=== PATIENT | male | born 1975 | race Caucasian/White ===

== ENCOUNTER 2021-02-15 09:19 | Emergency (ER) | payer MEDICAID ==
--- NOTE | 2021-02-15 10:44 | EDM.PDOC ---
ED HPI GENERAL MEDICAL PROBLEM - General Chief Complaint: Gastrointestinal Problem Stated Complaint: CONSTIPATION Time Seen by Provider: 02/15/21 10:39 Source of Information: Reports: Patient, Family, RN Notes Reviewed History Limitations: Reports: No Limitations - History of Present Illness INITIAL COMMENTS - FREE TEXT/NARRATIVE: 45-year-old gentleman presents emergency department today with complaint of constipation he states his been constipated for a little over a week he has not had a bowel movement he has tried MiraLAX at home without success he has tried going to the bathroom and felt he pushed so hard he caused some nausea and vomiting. Does have a history of appendicitis for abdominal surgeries Abdomen Pain Score (Numeric/FACES): 3 - Related Data Allergies Allergy/AdvReac Type Severity Reaction Status Date / Time No Known Allergies Allergy Verified 02/15/21 09:49 Home Meds: Home Meds Multivitamin [Multi Vitamin Daily] 1 each PO TID 07/30/13 [History] Past Medical History HEENT History: Reports: Impaired Vision Gastrointestinal History: Reports: Other (See Below) Other Gastrointestinal History: groin hernia - Infectious Disease History Infectious Disease History: Reports: Chicken Pox - Past Surgical History GI Surgical History: Reports: Appendectomy Social & Family History - Tobacco Use Tobacco Use Status *Q: Never Tobacco User - Caffeine Use Caffeine Use: Reports: Coffee, Soda - Recreational Drug Use Recreational Drug Use: No ED ROS GENERAL - Review of Systems Review Of Systems: See Below Constitutional: Reports: No Symptoms Respiratory: Reports: No Symptoms Cardiovascular: Reports: No Symptoms GI/Abdominal: Reports: Abdominal Pain, Constipation, Flatus, Nausea, Vomiting ED EXAM, GI/ABD - Physical Exam Exam: See Below Exam Limited By: No Limitations General Appearance: Alert, WD/WN, No Apparent Distress Respiratory/Chest: No Respiratory Distress GI/Abdominal Exam: Normal Bowel Sounds, Soft, Non-Tender Course - Vital Signs Last Recorded V/S: Last Vital Signs Temp 96.9 F 02/15/21 09:54 Pulse 117 H 02/15/21 09:54 Resp 20 02/15/21 09:54 BP 171/98 H 02/15/21 09:54 Pulse Ox 100 02/15/21 09:54 Departure - Departure Time of Disposition: 13:29 Disposition: Home, Self-Care 01 Condition: Fair Clinical Impression: Constipation Qualifiers: Constipation type: other constipation type Qualified Code(s): K59.09 - Other constipation - Discharge Information Instructions: Constipation, Adult Referrals: PCP,None [Primary Care Provider] - Forms: ED Department Discharge Additional Instructions: Try the colonoscopy prep at home, please followup with your primary care provider in 3-5 days if not better, please call return to the emergency department with worsening of symptoms. Sepsis Event Note (ED) - Evaluation Sepsis Screening Result: No Definite Risk - Focused Exam Vital Signs: Vital Signs Temp Pulse Resp BP Pulse Ox 02/15/21 09:54 96.9 F 117 H 20 171/98 H 100 02/15/21 09:45 96.9 F 117 H 20 171/98 H 100 - Assessment/Plan Plan: Assessment Acuity = acute Site and laterality = constipation functional Etiology = unknown Manifestations = none Location of injury = Home Lab values = plain film the abdomen shows no acute process Plan Good success with enema provided in the emergency department we will do the colonoscopy prep at home follow-up primary care 3 to 5 days if not better This note was dictated using [employer] voice recognition software please call with any questions on syntax or grammar.
--- NOTE | 2021-02-15 12:23 | CR ---
Abdomen 1V Upright CLINICAL HISTORY: Abdominal pain FINDINGS: No free air is seen. Small intestinal configuration is nonacute. There is gas and feces throughout the colon IMPRESSION: Nonspecific intestinal gas pattern
== END 2021-02-15 13:55 | disposition home or self-care (01) ==
LOC: JP.ED 09:19
DX: K59.09 Other constipation (principal)
CPT/HCPCS: 74018; 74018-26; 99283

== ENCOUNTER 2021-02-18 07:55 | Inpatient (IN) | payer MEDICAID ==
[2021-02-18] MEDS ORDERED: Sodium Chloride 0.9% 10 ML Syringe FLUSH PRN ×2 (08:49→14:55)
[2021-02-18] MEDS ORDERED: Lactated Ringers 1,000 ML IV ONE (08:52)
--- NOTE | 2021-02-18 09:00 | EDM.PDOC ---
ED HPI GENERAL MEDICAL PROBLEM - General Chief Complaint: General Stated Complaint: shoulder pain very short of breath Time Seen by Provider: 02/18/21 08:40 Source of Information: Reports: Patient, Family, RN. Denies: Old Records History Limitations: Reports: Other (minimal old records) - History of Present Illness INITIAL COMMENTS - FREE TEXT/NARRATIVE: 45 yo male presents with his sister and mother for a few days of SOB and onset yesterday of shoulder pain not associated with injury. He has not seen anyone for any of these complaints before today. His provider is in [place] and he doesn't have a car so hasn't seen him in quite a while. DM type 1 and 2 as well as CAD runs in his family. He believes that he has been drinking a lot and urinating a lot lately and his mouth feels dry. He does not have a pHx himself of DM. He was here a few days ago for constipation and no blood work was done at that visit. Apparently, that problem is resolved. Onset: Gradual Duration: Day(s): (SOB x ~4 days, L shoulder x 1 day. ), Getting Worse Location: Reports: Chest Quality: Reports: Ache (shoulder, left) Severity: Mild (shoulder) Improves with: Reports: None. Denies: Rest Worsens with: Reports: None. Denies: Movement Context: Reports: Other (see HPI). Denies: Trauma Associated Symptoms: Reports: Other (felt shaky this AM at home so ate at least part of an orange.). Denies: Fever/Chills, Nausea/Vomiting Treatments PORTABLE TRACKMAN: Reports: Other (see below) (none) - Related Data Allergies Allergy/AdvReac Type Severity Reaction Status Date / Time No Known Allergies Allergy Verified 02/18/21 08:12 Home Meds: Home Meds Multivitamin [Multi Vitamin Daily] 1 each PO TID 07/30/13 [History] Past Medical History HEENT History: Reports: Impaired Vision Cardiovascular History: Reports: None Respiratory History: Reports: None Gastrointestinal History: Reports: Other (See Below) Other Gastrointestinal History: groin hernia Genitourinary History: Reports: None Musculoskeletal History: Reports: None Neurological History: Reports: None Psychiatric History: Reports: None Endocrine/Metabolic History: Reports: None Hematologic History: Reports: None Immunologic History: Reports: None Oncologic (Cancer) History: Reports: None Dermatologic History: Reports: None - Infectious Disease History Infectious Disease History: Reports: Chicken Pox - Past Surgical History Head Surgeries/Procedures: Reports: None HEENT Surgical History: Reports: None GI Surgical History: Reports: Appendectomy Social & Family History - Tobacco Use Tobacco Use Status *Q: Never Tobacco User Second Hand Smoke Exposure: No - Caffeine Use Caffeine Use: Reports: Coffee, Soda, Tea - Recreational Drug Use Recreational Drug Use: No ED ROS GENERAL - Review of Systems Review Of Systems: See Below Constitutional: Reports: Malaise HEENT: Reports: Other (dry mouth) Respiratory: Reports: Shortness of Breath, Cough (not frequent) Cardiovascular: Reports: No Symptoms Endocrine: Reports: Polydypsia, Polyuria GI/Abdominal: Reports: No Symptoms : Reports: No Symptoms Musculoskeletal: Reports: Shoulder Pain (left) Skin: Reports: No Symptoms Neurological: Reports: No Symptoms ED EXAM, GENERAL - Physical Exam Exam: See Below Exam Limited By: No Limitations General Appearance: Alert, WD/WN, Moderate Distress, Thin Eye Exam: Bilateral Eye: Normal Inspection Ears: Normal External Exam, Normal Canal, Hearing Grossly Normal Ear Exam: Bilateral Ear: Auricle Normal, Canal Normal Nose: Normal Inspection, No Blood Throat/Mouth: Normal Inspection, Normal Lips, Normal Oropharynx, Normal Voice, No Airway Compromise, Other (dry oral mucosa) Head: Atraumatic, Normocephalic Neck: Normal Inspection Respiratory/Chest: Lungs Clear, Normal Breath Sounds, No Accessory Muscle Use, Other (tachypnea). No: Decreased Breath Sounds, Crackles, Rales, Rhonchi, Wheezing, Retractions Cardiovascular: Regular Rate, Rhythm, No Edema, Tachycardia GI/Abdominal: Normal Bowel Sounds, Soft, Non-Tender, No Distention Extremities: Normal Inspection, Normal Range of Motion, Non-Tender, No Pedal Edema Neurological: Alert, Oriented, CN II-XII Intact, Normal Cognition, No Motor/Sensory Deficits Psychiatric: Normal Affect, Normal Mood Skin Exam: Warm, Dry, Intact, Normal Color, No Rash Course - Vital Signs Last Recorded V/S: Last Vital Signs Temp 36.2 C 02/18/21 15:00 Pulse 91 02/18/21 15:45 Resp 27 H 02/18/21 15:45 BP 122/66 02/18/21 15:45 Pulse Ox 100 02/18/21 15:45 - Orders/Labs/Meds Orders: Active Orders 24 hr Category Date Time Status Patient Status [ADT] Routine ADT 02/18/21 14:55 Active Ambulate [RC] QID Care 02/18/21 14:55 Active Blood Glucose Check, Bedside [RC] Q1H Care 02/18/21 13:00 Active Cardiac Monitoring [RC] .As Directed Care 02/18/21 14:55 Active Communication Order [RC] ASDIRECTED Care 02/18/21 13:01 Active Diabetes Education [RC] Click to Edit Care 02/18/21 13:01 Active Diabetes Education [RC] Click to Edit Care 02/18/21 13:01 Active Height and Weight [RC] DAILY Care 02/18/21 14:55 Active Intake and Output [RC] QSHIFT Care 02/18/21 14:55 Active Notify Provider Laboratory Res [RC] ASDIRECTED Care 02/18/21 13:02 Active Notify Provider Laboratory Res [RC] ASDIRECTED Care 02/18/21 13:02 Active Notify Provider Laboratory Res [RC] ASDIRECTED Care 02/18/21 13:03 Active Notify Provider Vital Signs [RC] ASDIRECTED Care 02/18/21 14:55 Active Notify Provider [RC] PRN Care 02/18/21 13:01 Active Oxygen Therapy [RC] PRN Care 02/18/21 14:55 Active Peripheral IV Care [RC] . DIRECTED Care 02/18/21 14:55 Active Up With Assistance [RC] ASDIRECTED Care 02/18/21 14:55 Active Up to Chair [RC] QID Care 02/18/21 14:55 Active VTE/DVT Education [RC] Per Unit Routine Care 02/18/21 14:55 Active Vital Signs [RC] Q1H Care 02/18/21 13:01 Active Vital Signs [RC] Q4H Care 02/18/21 14:55 Active Consult to Diabetic Nurse Specialist [CONS] Urgent Cons 02/18/21 13:00 Active Consistent Carbohydrate Diet [DIET] Diet 02/18/21 Lunch Active BASIC METABOLIC PANEL,BMP [CHEM] Q4H Lab 02/18/21 17:15 Ordered BASIC METABOLIC PANEL,BMP [CHEM] Q4H Lab 02/18/21 21:15 Ordered BASIC METABOLIC PANEL,BMP [CHEM] Q4H Lab 02/19/21 01:15 Ordered BASIC METABOLIC PANEL,BMP [CHEM] Q4 Lab 02/19/21 05:15 Ordered BASIC METABOLIC PANEL,BMP [CHEM] Q4 Lab 02/19/21 09:15 Ordered CBC WITH AUTO DIFF [HEME] AM Lab 02/19/21 05:11 Ordered COMPREHENSIVE METABOLIC PN,CMP [CHEM] AM Lab 02/19/21 05:11 Ordered MAGNESIUM [CHEM] Q6 Lab 02/18/21 19:15 Ordered MAGNESIUM [CHEM] Q6 Lab 02/19/21 01:15 Ordered MAGNESIUM [CHEM] Q6 Lab 02/19/21 07:15 Ordered PHOSPHORUS [CHEM] Q6 Lab 02/18/21 19:15 Ordered PHOSPHORUS [CHEM] 6 Lab 02/19/21 01:15 Ordered PHOSPHORUS [CHEM] [facility] Lab 02/19/21 07:15 Ordered POTASSIUM,K [CHEM] Q2 Lab 02/18/21 19:15 Ordered POTASSIUM,K [CHEM] [facility] Lab 02/18/21 23:15 Ordered POTASSIUM,K [CHEM] [facility] Lab 02/19/21 01:15 Ordered POTASSIUM,K [CHEM] [facility] Lab 02/19/21 03:15 Ordered POTASSIUM,K [CHEM] Q2 Lab 02/19/21 05:15 Ordered POTASSIUM,K [CHEM] [facility] Lab 02/19/21 07:15 Ordered POTASSIUM,K [CHEM] [facility] Lab 02/19/21 09:15 Ordered POTASSIUM,K [CHEM] [facility] Lab 02/19/21 11:15 Ordered Acetaminophen [TylenoL] Med 02/18/21 14:55 Active 650 mg PO Q4H PRN Dextrose 50% in Water Med 02/18/21 13:00 Active 50 ml IVPUSH ASDIRECTED PRN Docusate Sodium/Sennosides [Senna Plus] Med 02/18/21 14:55 Active 1 tab PO BID PRN Enoxaparin [Lovenox] Med 02/18/21 16:00 Active 40 mg SUBCUT Q24H Insulin Regular in 0.9 % NACL [Myxredlin in NS 100 UNIT Med 02/18/21 13:00 Active /100 ML] 100 ml IV ASDIRECTED Magnesium Sulfate/Water [Magnesium Sulfate in Water 2 Med 02/18/21 13:00 Active GM/50 ML] 50 ml IV ONETIME Ondansetron [Zofran] Med 02/18/21 14:55 Active 4 mg IV Q4H PRN Potassium Chloride [KCL in Water 20 MEQ/100 ML] 20 meq Med 02/18/21 13:00 Active Premix Bag 1 bag IV ASDIRECTED Potassium Chloride [KCL in Water 20 MEQ/100 ML] 20 meq Med 02/18/21 13:00 Active Premix Bag 1 bag IV Q2H Potassium Chloride [KCL in Water 20 MEQ/100 ML] 20 meq Med 02/18/21 13:00 Active Premix Bag 1 bag IV Q2H Potassium Chloride [Potassium Chloride Solution] Med 02/18/21 13:00 Active 20 meq PO ASDIRECTED PRN Potassium Chloride [Potassium Chloride Solution] Med 02/18/21 13:00 Active 40 meq PO ASDIRECTED PRN Potassium Chloride [Potassium Chloride Solution] Med 02/18/21 13:00 Active 40 meq PO Q2H PRN Sodium Chloride 0.9% [Normal Saline] 2,000 ml Med 02/18/21 13:00 Active IV .CONTINUOUS Sodium Chloride 0.9% [Saline Flush] Med 02/18/21 14:55 Active 10 ml FLUSH ASDIRECTED PRN Sodium Phosphate 60 mmole Med 02/18/21 13:00 Active Sodium Chloride 0.9% [Normal Saline] 250 ml IV ONETIME Medication Continuation Instructions [OM.PC] ASDIRECTED Oth 02/18/21 13:15 Ordered Medication Discontinuation Instructions [OM.PC] Oth 02/18/21 13:15 Ordered ASDIRECTED Peripheral IV Insertion Adult [OM.PC] Routine Oth 02/18/21 14:55 Ordered Saline Lock Insert [OM.PC] Routine Oth 02/18/21 08:49 Ordered Resuscitation Status Routine Resus Stat 02/18/21 14:36 Ordered Medication Orders Acetaminophen (Acetaminophen 325 Mg Tab) 650 mg PO Q4H PRN PRN Reason: Pain (Mild 1-3)/fever Dextrose/Water (50% Dextrose In Water 50 Ml Syringe) 50 ml IVPUSH ASDIRECTED PRN PRN Reason: Blood Glucose Enoxaparin Sodium (Enoxaparin 40 Mg/0.4 Ml Syringe) 40 mg SUBCUT Q24H ADIA Last Admin: 02/18/21 16:11 Dose: 40 mg Documented by: ROGELEO Heparin Sodium (Porcine) (Heparin Sodium 100 Units/Ml 5 Ml Syringe) 500 units FLUSH ASDIRECTED PRN PRN Reason: Keep Vein Open Sodium Chloride (Normal Saline) 2,000 mls @ 500 mls/hr IV .CONTINUOUS PRN PRN Reason: Blood Glucose Last Admin: 02/18/21 15:16 Dose: 500 mls/hr Documented by: SHEEBA Potassium Chloride 20 meq/ (Premix) 100 mls @ 50 mls/hr IV ASDIRECTED PRN PRN Reason: K+ 3.5-3.9 Potassium Chloride 20 meq/ (Premix) 100 mls @ 50 mls/hr IV Q2H PRN PRN Reason: Hypokalemia 3 - 3.4 Potassium Chloride 20 meq/ (Premix) 100 mls @ 50 mls/hr IV Q2H PRN PRN Reason: Hypokalemia 2.5-2.9 Magnesium Sulfate (Magnesium Sulfate In Water 2 Gm/50 Ml) 50 mls @ 25 mls/hr IV ONETIME PRN PRN Reason: low magnesium Sodium Phosphate 60 mmole/ (Sodium Chloride) 270 mls @ 62.5 mls/hr IV ONETIME PRN PRN Reason: Low phophorus Insulin Regular in 0.9 % NACL (Myxredlin In Ns 100 Unit/100 Ml) 100 mls @ 7.893 mls/hr IV ASDIRECTED ADIA; Protocol Last Infusion: 02/18/21 17:11 Dose: 0.02 units/kg/hr, 1.5 mls/hr Documented by: MARIO Cosigned by: SHEEBA Infusion: 02/18/21 16:08 Dose: 0.06 units/kg/hr, 5 mls/hr Documented by: MARIO Cosigned by: SHEEBA Admin: 02/18/21 15:10 Dose: 0.09 units/kg/hr, 7 mls/hr Documented by: SHEEBA Cosigned by: MARIO Ondansetron HCl (Ondansetron 4 Mg/2 Ml Sdv) 4 mg IV Q4H PRN PRN Reason: Nausea/Vomiting Potassium Chloride (Potassium Chloride 10% 20 Meq/15 Ml Soln 15 Ml Ud Cup) 20 meq PO ASDIRECTED PRN PRN Reason: Hypokalemia Potassium Chloride (Potassium Chloride 10% 20 Meq/15 Ml Soln 15 Ml Ud Cup) 40 meq PO ASDIRECTED PRN PRN Reason: Hypokalemia Potassium Chloride (Potassium Chloride 10% 20 Meq/15 Ml Soln 15 Ml Ud Cup) 40 meq PO Q2H PRN PRN Reason: Hypokalemia Senna/Docusate Sodium (Docusate Sodium/Sennosides 50-8.6 Mg Tab) 1 tab PO BID PRN PRN Reason: Constipation Sodium Chloride (Sodium Chloride 0.9% 10 Ml Syringe) 10 ml FLUSH ASDIRECTED PRN PRN Reason: Keep Vein Open Labs: Laboratory Tests 02/18/21 02/18/21 02/18/21 Range/Units 08:51 08:51 09:11 WBC 24.0 H (4.5-11.0) K/uL RBC 4.50 (4.30-5.90) M/uL Hgb 13.6 (12.0-15.0) g/dL Hct 39.1 L (40.0-54.0) % MCV 87 (80-98) fL MCH 30 (27-31) pg MCHC 35 (32-36) % Plt Count 219 (150-400) K/uL VBG pH (7.350-7.450) Sodium (140-148) mmol/L Potassium (3.6-5.2) mmol/L Chloride (100-108) mmol/L Carbon Dioxide (21-32) mmol/L Anion Gap (5.0-14.0) mmol/L BUN (7-18) mg/dL Creatinine (0.8-1.3) mg/dL Est Cr Clr Drug Dosing mL/min Estimated GFR (MDRD) (>60) Glucose (74-106) mg/dL POC Glucose > 600 H* (74-106) mg/dL Calcium (8.5-10.1) mg/dL Phosphorus (2.5-4.9) mg/dL Magnesium (1.8-2.4) mg/dL Troponin I (0.000-0.056) ng/mL Urine Color Yellow (YELLOW) Urine Appearance Clear (CLEAR) Urine pH 5.0 (5.0-8.0) Ur Specific [place] 1.020 (1.008-1.030) Urine Protein 30 H (NEGATIVE) mg/dL Urine Glucose (UA) 500 H (NEGATIVE) mg/dL Urine Ketones >=160 H (NEGATIVE) mg/dL Urine Occult Blood Moderate H (NEGATIVE) Urine Nitrite Negative (NEGATIVE) Urine Bilirubin Negative (NEGATIVE) Urine Urobilinogen 0.2 (0.2-1.0) EU/dL Ur Leukocyte Esterase Negative (NEGATIVE) Urine RBC 5-10 H (0-5) Urine WBC Not seen (0-5) Ur Epithelial Cells Rare Amorphous Sediment Moderate Urine Bacteria Not seen Urine Mucus Not seen SARS CoV-2 RNA Rapid QUYNH 02/18/21 02/18/21 02/18/21 Range/Units 10:03 10:03 10:21 WBC (4.5-11.0) K/uL RBC (4.30-5.90) M/uL Hgb (12.0-15.0) g/dL Hct (40.0-54.0) % MCV (80-98) fL MCH (27-31) pg MCHC (32-36) % Plt Count (150-400) K/uL VBG pH 6.906 L (7.350-7.450) Sodium 127 L (140-148) mmol/L Potassium 3.9 (3.6-5.2) mmol/L Chloride 91 L (100-108) mmol/L Carbon Dioxide < 5 L (21-32) mmol/L Anion Gap 34.9 H (5.0-14.0) mmol/L BUN 20 H (7-18) mg/dL Creatinine 1.4 H (0.8-1.3) mg/dL Est Cr Clr Drug Dosing 65.23 mL/min Estimated GFR (MDRD) 54 L (>60) Glucose 857 H* (74-106) mg/dL POC Glucose (74-106) mg/dL Calcium 8.7 (8.5-10.1) mg/dL Phosphorus (2.5-4.9) mg/dL Magnesium (1.8-2.4) mg/dL Troponin I < 0.017 (0.000-0.056) ng/mL Urine Color (YELLOW) Urine Appearance (CLEAR) Urine pH (5.0-8.0) Ur Specific [place] (1.008-1.030) Urine Protein (NEGATIVE) mg/dL Urine Glucose (UA) (NEGATIVE) mg/dL Urine Ketones (NEGATIVE) mg/dL Urine Occult Blood (NEGATIVE) Urine Nitrite (NEGATIVE) Urine Bilirubin (NEGATIVE) Urine Urobilinogen (0.2-1.0) EU/dL Ur Leukocyte Esterase (NEGATIVE) Urine RBC (0-5) Urine WBC (0-5) Ur Epithelial Cells Amorphous Sediment Urine Bacteria Urine Mucus SARS CoV-2 RNA Rapid QUYNH Negative 02/18/21 Range/Units 13:15 WBC (4.5-11.0) K/uL RBC (4.30-5.90) M/uL Hgb (12.0-15.0) g/dL Hct (40.0-54.0) % MCV (80-98) fL MCH (27-31) pg MCHC (32-36) % Plt Count (150-400) K/uL VBG pH (7.350-7.450) Sodium 138 L (140-148) mmol/L Potassium 3.0 L (3.6-5.2) mmol/L Chloride 106 (100-108) mmol/L Carbon Dioxide < 5 L (21-32) mmol/L Anion Gap 30.0 H (5.0-14.0) mmol/L BUN 18 (7-18) mg/dL Creatinine 1.1 (0.8-1.3) mg/dL Est Cr Clr Drug Dosing 83.02 mL/min Estimated GFR (MDRD) > 60 (>60) Glucose 328 H (74-106) mg/dL POC Glucose (74-106) mg/dL Calcium 8.6 (8.5-10.1) mg/dL Phosphorus 1.9 L (2.5-4.9) mg/dL Magnesium 2.0 (1.8-2.4) mg/dL Troponin I (0.000-0.056) ng/mL Urine Color (YELLOW) Urine Appearance (CLEAR) Urine pH (5.0-8.0) Ur Specific [place] (1.008-1.030) Urine Protein (NEGATIVE) mg/dL Urine Glucose (UA) (NEGATIVE) mg/dL Urine Ketones (NEGATIVE) mg/dL Urine Occult Blood (NEGATIVE) Urine Nitrite (NEGATIVE) Urine Bilirubin (NEGATIVE) Urine Urobilinogen (0.2-1.0) EU/dL Ur Leukocyte Esterase (NEGATIVE) Urine RBC (0-5) Urine WBC (0-5) Ur Epithelial Cells Amorphous Sediment Urine Bacteria Urine Mucus SARS CoV-2 RNA Rapid QUYNH Meds: Medications Generic Name Dose Route Start Last Admin Trade Name Steveq PRN Reason Stop Dose Admin Acetaminophen 650 mg 02/18/21 14:55 Acetaminophen 325 Mg Tab PO Q4H PRN Pain (Mild 1-3)/fever Dextrose/Water 50 ml 02/18/21 13:00 50% Dextrose In Water 50 Ml Syringe IVPUSH ASDIRECTED PRN Blood Glucose Enoxaparin Sodium 40 mg 02/18/21 16:00 02/18/21 16:11 Enoxaparin 40 Mg/0.4 Ml Syringe SUBCUT 40 mg Q24H ADIA Administration Heparin Sodium (Porcine) 500 units 02/18/21 17:24 Heparin Sodium 100 Units/Ml 5 Ml Syringe FLUSH ASDIRECTED PRN Keep Vein Open Sodium Chloride 2,000 mls @ 500 mls/hr 02/18/21 13:00 02/18/21 15:16 Normal Saline IV 500 mls/hr .CONTINUOUS PRN Administration Blood Glucose Potassium Chloride 20 meq/ 100 mls @ 50 mls/hr 02/18/21 13:00 Premix IV ASDIRECTED PRN K+ 3.5-3.9 Potassium Chloride 20 meq/ 100 mls @ 50 mls/hr 02/18/21 13:00 Premix IV Q2H PRN Hypokalemia 3 - 3.4 Potassium Chloride 20 meq/ 100 mls @ 50 mls/hr 02/18/21 13:00 Premix IV Q2H PRN Hypokalemia 2.5-2.9 Magnesium Sulfate 50 mls @ 25 mls/hr 02/18/21 13:00 Magnesium Sulfate In Water 2 Gm/50 Ml IV ONETIME PRN low magnesium Sodium Phosphate 60 mmole/ 270 mls @ 62.5 mls/hr 02/18/21 13:00 Sodium Chloride IV ONETIME PRN Low phophorus Insulin Regular in 0.9 % NACL 100 mls @ 7.893 mls/hr 02/18/21 13:00 02/18/21 17:11 Myxredlin In Ns 100 Unit/100 Ml IV 0.02 units/kg/hr ASDIRECTED ADIA 1.5 mls/hr Infusion Protocol 0.1 UNITS/KG/HR Ondansetron HCl 4 mg 02/18/21 14:55 Ondansetron 4 Mg/2 Ml Sdv IV Q4H PRN Nausea/Vomiting Potassium Chloride 20 meq 02/18/21 13:00 Potassium Chloride 10% 20 Meq/15 Ml Soln 15 Ml Ud Cup PO ASDIRECTED PRN Hypokalemia Potassium Chloride 40 meq 02/18/21 13:00 Potassium Chloride 10% 20 Meq/15 Ml Soln 15 Ml Ud Cup PO ASDIRECTED PRN Hypokalemia Potassium Chloride 40 meq 02/18/21 13:00 Potassium Chloride 10% 20 Meq/15 Ml Soln 15 Ml Ud Cup PO Q2H PRN Hypokalemia Senna/Docusate Sodium 1 tab 02/18/21 14:55 Docusate Sodium/Sennosides 50-8.6 Mg Tab PO BID PRN Constipation Sodium Chloride 10 ml 02/18/21 14:55 Sodium Chloride 0.9% 10 Ml Syringe FLUSH ASDIRECTED PRN Keep Vein Open Discontinued Medications Generic Name Dose Route Start Last Admin Trade Name Freq PRN Reason Stop Dose Admin Acetaminophen 1,000 mg 02/18/21 11:49 Acetaminophen 500 Mg Tab PO 02/18/21 11:50 ONETIME ONE Heparin Sodium (Porcine) Confirm 02/18/21 16:13 Heparin Sodium 100 Units/Ml 5 Ml Syringe Administered 02/18/21 16:14 Dose 500 units .ROUTE .STK-MED ONE Lactated Ringer's 1,000 mls @ 1,000 mls/hr 02/18/21 08:52 02/18/21 09:51 Ringers, Lactated IV 02/18/21 09:51 1,000 mls/hr BOLUS ONE Administration Insulin Regular in 0.9 % NACL 100 unit in 100 mls @ 7.893 mls/hr 02/18/21 09:15 02/18/21 09:53 Myxredlin In Ns 100 Unit/100 Ml IV 0.1 units/kg/hr ASDIRECTED ADIA 7.893 mls/hr Administration 0.1 UNITS/KG/HR Sodium Chloride 1,000 mls @ 1,000 mls/hr 02/18/21 11:50 02/18/21 12:58 Normal Saline IV 02/18/21 12:49 1,000 mls/hr .BOLUS ONE Administration Potassium Chloride 20 meq/ 112 mls @ 56 mls/hr 02/18/21 12:45 02/18/21 13:01 Lidocaine HCl 2 ml/ Sodium IV 02/18/21 14:44 56 mls/hr Chloride ONETIME ONE Administration Potassium Chloride 40 meq 02/18/21 11:51 02/18/21 13:05 Potassium Chloride 20 Meq Tab.Er PO 02/18/21 11:52 40 meq ONETIME ONE Administration Sodium Chloride 10 ml 02/18/21 08:49 02/18/21 09:52 Sodium Chloride 0.9% 10 Ml Syringe FLUSH 10 ml ASDIRECTED PRN Administration Keep Vein Open Departure - Departure Time of Disposition: 15:45 Disposition: Admitted As Inpatient 64 Condition: Serious Clinical Impression: Dehydration DKA (diabetic ketoacidosis) Qualifiers: Diabetes mellitus type: type 1 Diabetes mellitus complication detail: without coma Qualified Code(s): E10.10 - Type 1 diabetes mellitus with ketoacidosis without coma - Discharge Information Sepsis Event Note (ED) - Focused Exam Vital Signs: Vital Signs Temp Pulse Resp BP Pulse Ox 02/18/21 14:51 90 29 H 114/68 100 02/18/21 14:06 85 29 H 127/66 02/18/21 11:25 78 26 H 135/72 100 02/18/21 10:53 83 25 H 141/75 H 97 02/18/21 08:14 36.2 C 87 29 H 159/64 H 100 02/18/21 08:13 36.2 C 87 29 H 159/64 H 100 - My Orders Last 24 Hours: My Active Orders 02/18/21 08:49 Saline Lock Insert [OM.PC] Routine - Assessment/Plan Last 24 Hours: My Active Orders 02/18/21 08:49 Saline Lock Insert [OM.PC] Routine
[2021-02-18] MEDS ORDERED: Acetaminophen 500 MG Tab PO ONE (11:49)
[2021-02-18] MEDS ORDERED: Sodium Chloride 0.9% 1,000 ML IV ONE (11:50)
[2021-02-18] MEDS ORDERED: Potassium Chloride 20 MEQ Tab.ER PO ONE (11:51)
[2021-02-18] MEDS ORDERED: Potassium Chloride 20 MEQ in Premix Bag 1 BAG IV ONE (11:52)
[2021-02-18] MEDS ORDERED: Potassium Chloride 20 MEQ, Lidocaine 1% 2 ML in Sodium Chloride 0.9% 100 ML IV ONE (12:45)
[2021-02-18] MEDS ORDERED: Potassium Chloride 10% 20 MEQ/15 ML Soln 15 ML UD Cup PO PRN (13:00)
[2021-02-18] MEDS ORDERED: Sodium Phosphate 60 MMOLE in Sodium Chloride 0.9% 250 ML IV PRN (13:00)
[2021-02-18] MEDS ORDERED: 50% Dextrose in Water 50 ML Syringe IVPUSH PRN (13:00)
--- NOTE | 2021-02-18 14:43 | PCM.HP.2 ---
H&P History of Present Illness - General Date of Service: 02/18/21 Admit Problem/Dx: Admission Diagnosis/Problem Admission Diagnosis/Problem Ketoacidosis Source of Information: Patient, Family, Provider, RN Notes Reviewed History Limitations: Reports: No Limitations - History of Present Illness Initial Comments - Free Text/Narative: Mr. Chavira is a 45-year-old gentleman who was admitted through the emergency department with decreased level of consciousness and weakness, secondary to diabetic ketoacidosis. He has no prior history of diabetes mellitus. He apparently was doing well yesterday but today was found to be extremely weak with decreased level of consciousness. Family also noted that he appeared to be breathing very hard. He was brought into the emergency department for further evaluation. He has been found to have significant elevated anion gap metabolic acidosis with elevated ketones and glucose level. There has been no evidence of recent illness, fevers, chills, or sweats. He has been started on continuous infusion of IV insulin while in the emergency department and given vigorous IV fluid replacement. - Related Data Allergies/Adverse Reactions: Allergies Allergy/AdvReac Type Severity Reaction Status Date / Time No Known Allergies Allergy Verified 02/18/21 08:12 Home Medications: Home Meds Multivitamin [Multi Vitamin Daily] 1 each PO TID 07/30/13 [History] Past Medical History HEENT History: Reports: Impaired Vision Cardiovascular History: Reports: None Respiratory History: Reports: None Gastrointestinal History: Reports: Other (See Below) Other Gastrointestinal History: groin hernia Genitourinary History: Reports: None Musculoskeletal History: Reports: None Neurological History: Reports: None Psychiatric History: Reports: None Endocrine/Metabolic History: Reports: None Hematologic History: Reports: None Immunologic History: Reports: None Oncologic (Cancer) History: Reports: None Dermatologic History: Reports: None - Infectious Disease History Infectious Disease History: Reports: Chicken Pox - Past Surgical History Head Surgeries/Procedures: Reports: None HEENT Surgical History: Reports: None GI Surgical History: Reports: Appendectomy Social & Family History - Tobacco Use Tobacco Use Status *Q: Never Tobacco User Second Hand Smoke Exposure: No - Caffeine Use Caffeine Use: Reports: Coffee, Soda, Tea - Recreational Drug Use Recreational Drug Use: No H&P Review of Systems - Review of Systems: Review Of Systems: See Below General: Reports: Malaise, Weakness, Fatigue HEENT: Reports: No Symptoms Pulmonary: Reports: No Symptoms Cardiovascular: Reports: No Symptoms Gastrointestinal: Reports: Abdominal Pain. Denies: Constipation, Diarrhea, Difficulty Swallowing, Distension, Flatus, Hematemesis, Hematochezia, Melena Genitourinary: Reports: No Symptoms Musculoskeletal: Reports: No Symptoms Skin: Reports: No Symptoms Psychiatric: Reports: No Symptoms Neurological: Reports: No Symptoms Hematologic/Lymphatic: Reports: No Symptoms Immunologic: Reports: No Symptoms Exam - Exam Exam: See Below - Vital Signs Vital Signs: Last Vital Signs Temp 97.1 F 02/18/21 08:14 Pulse 85 02/18/21 14:06 Resp 29 H 02/18/21 14:06 BP 127/66 02/18/21 14:06 Pulse Ox 100 02/18/21 11:25 Weight: 174 lb - Exam Quality Assessment: DVT Prophylaxis General: Moderate Distress, Lethargic HEENT: Conjunctiva Clear, Hearing Intact, Normal Nasal Septum, Posterior Pharynx Clear, Pupils Equal. No: Mucosa Moist & [place]ck: Supple, Trachea Midline, +2 Carotid Pulse wo Bruit Lungs: Clear to Auscultation, Normal Respiratory Effort Cardiovascular: Regular Rate, Regular Rhythm, Normal S1, Normal S2. No: Systolic Murmur, Diastolic Murmur GI/Abdominal Exam: Soft, Non-Tender, No Organomegaly, No Distention Extremities: Non-Tender, No Pedal Edema Skin: Dry, Cool Neurological: Cranial Nerves Intact, Strength Equal Bilateral, Normal Speech, Normal Tone, Sensation Intact Neuro Extensive - Mental Status: Inattentive, Slow Response to Commands. No: Alert - Patient Data Lab Results Last 24 hrs: Laboratory Results - last 24 hr 02/18/21 02/18/21 02/18/21 Range/Units 08:51 08:51 09:11 WBC 24.0 H (4.5-11.0) K/uL RBC 4.50 (4.30-5.90) M/uL Hgb 13.6 (12.0-15.0) g/dL Hct 39.1 L (40.0-54.0) % MCV 87 (80-98) fL MCH 30 (27-31) pg MCHC 35 (32-36) % Plt Count 219 (150-400) K/uL VBG pH (7.350-7.450) Sodium (140-148) mmol/L Potassium (3.6-5.2) mmol/L Chloride (100-108) mmol/L Carbon Dioxide (21-32) mmol/L Anion Gap (5.0-14.0) mmol/L BUN (7-18) mg/dL Creatinine (0.8-1.3) mg/dL Est Cr Clr Drug Dosing mL/min Estimated GFR (MDRD) (>60) Glucose (74-106) mg/dL POC Glucose > 600 H* (74-106) mg/dL Calcium (8.5-10.1) mg/dL Troponin I (0.000-0.056) ng/mL Urine Color Yellow (YELLOW) Urine Appearance Clear (CLEAR) Urine pH 5.0 (5.0-8.0) Ur Specific [place] 1.020 (1.008-1.030) Urine Protein 30 H (NEGATIVE) mg/dL Urine Glucose (UA) 500 H (NEGATIVE) mg/dL Urine Ketones >=160 H (NEGATIVE) mg/dL Urine Occult Blood Moderate H (NEGATIVE) Urine Nitrite Negative (NEGATIVE) Urine Bilirubin Negative (NEGATIVE) Urine Urobilinogen 0.2 (0.2-1.0) EU/dL Ur Leukocyte Esterase Negative (NEGATIVE) Urine RBC 5-10 H (0-5) Urine WBC Not seen (0-5) Ur Epithelial Cells Rare Amorphous Sediment Moderate Urine Bacteria Not seen Urine Mucus Not seen SARS CoV-2 RNA Rapid QUYNH 02/18/21 02/18/21 02/18/21 Range/Units 10:03 10:03 10:21 WBC (4.5-11.0) K/uL RBC (4.30-5.90) M/uL Hgb (12.0-15.0) g/dL Hct (40.0-54.0) % MCV (80-98) fL MCH (27-31) pg MCHC (32-36) % Plt Count (150-400) K/uL VBG pH 6.906 L (7.350-7.450) Sodium 127 L (140-148) mmol/L Potassium 3.9 (3.6-5.2) mmol/L Chloride 91 L (100-108) mmol/L Carbon Dioxide < 5 L (21-32) mmol/L Anion Gap 34.9 H (5.0-14.0) mmol/L BUN 20 H (7-18) mg/dL Creatinine 1.4 H (0.8-1.3) mg/dL Est Cr Clr Drug Dosing 65.23 mL/min Estimated GFR (MDRD) 54 L (>60) Glucose 857 H* (74-106) mg/dL POC Glucose (74-106) mg/dL Calcium 8.7 (8.5-10.1) mg/dL Troponin I < 0.017 (0.000-0.056) ng/mL Urine Color (YELLOW) Urine Appearance (CLEAR) Urine pH (5.0-8.0) Ur Specific [place] (1.008-1.030) Urine Protein (NEGATIVE) mg/dL Urine Glucose (UA) (NEGATIVE) mg/dL Urine Ketones (NEGATIVE) mg/dL Urine Occult Blood (NEGATIVE) Urine Nitrite (NEGATIVE) Urine Bilirubin (NEGATIVE) Urine Urobilinogen (0.2-1.0) EU/dL Ur Leukocyte Esterase (NEGATIVE) Urine RBC (0-5) Urine WBC (0-5) Ur Epithelial Cells Amorphous Sediment Urine Bacteria Urine Mucus SARS CoV-2 RNA Rapid QUYNH Negative Result Diagrams: 02/18/21 09:11 02/18/21 19:30 Sepsis Event Note - Focused Exam Vital Signs: Vital Signs Temp Pulse Resp BP Pulse Ox 02/18/21 14:06 85 29 H 127/66 02/18/21 11:25 78 26 H 135/72 100 02/18/21 10:53 83 25 H 141/75 H 97 02/18/21 08:14 97.1 F 87 29 H 159/64 H 100 02/18/21 08:13 97.1 F 87 29 H 159/64 H 100 *Q Meaningful Use (ADM) - VTE Risk Assess *Q Each Risk Factor Represents 1 Point: Age 41 - 59 years Total Score 1 Point Risk Factors: 1 Each Risk Factor Represents 2 Points: None Total Score 2 Point Risk Factors: 0 Each Risk Factor Represents 3 Points: None Total Score 3 Point Risk Factors: 0 Each Risk Factor Represents 5 Points: None Total Score 5 Point Risk Factors: 0 Venous Thromboembolism Risk Factor Score *Q: 1 Problem List Initiated/Reviewed/Updated: Yes Orders Last 24hrs: Active Orders 24 hr Category Date Time Status Patient Status Manage Transfer [TRANSFER] Routine ADT 02/18/21 14:34 Ordered Blood Glucose Check, Bedside [RC] Q1H Care 02/18/21 13:00 Active Communication Order [RC] ASDIRECTED Care 02/18/21 13:01 Active Diabetes Education [RC] Click to Edit Care 02/18/21 13:01 Active Diabetes Education [RC] Click to Edit Care 02/18/21 13:01 Active Notify Provider Laboratory Res [RC] ASDIRECTED Care 02/18/21 13:02 Active Notify Provider Laboratory Res [RC] ASDIRECTED Care 02/18/21 13:02 Active Notify Provider Laboratory Res [RC] ASDIRECTED Care 02/18/21 13:03 Active Notify Provider [RC] PRN Care 02/18/21 13:01 Active Vital Signs [RC] Q1H Care 02/18/21 13:01 Active Consult to Diabetic Nurse Specialist [CONS] Urgent Cons 02/18/21 13:00 Active BASIC METABOLIC PANEL,BMP [CHEM] Q4 Lab 02/18/21 13:15 Ordered BASIC METABOLIC PANEL,BMP [CHEM] Q4 Lab 02/18/21 17:15 Ordered BASIC METABOLIC PANEL,BMP [CHEM] Q4 Lab 02/18/21 21:15 Ordered BASIC METABOLIC PANEL,BMP [CHEM] Q4 Lab 02/19/21 01:15 Ordered BASIC METABOLIC PANEL,BMP [CHEM] Q4 Lab 02/19/21 05:15 Ordered BASIC METABOLIC PANEL,BMP [CHEM] Q4 Lab 02/19/21 09:15 Ordered MAGNESIUM [CHEM] Q6 Lab 02/18/21 13:15 Ordered MAGNESIUM [CHEM] Q6 Lab 02/18/21 19:15 Ordered MAGNESIUM [CHEM] Q6 Lab 02/19/21 01:15 Ordered MAGNESIUM [CHEM] Q6 Lab 02/19/21 07:15 Ordered PHOSPHORUS [CHEM] Q6 Lab 02/18/21 13:15 Ordered PHOSPHORUS [CHEM] Q6 Lab 02/18/21 19:15 Ordered PHOSPHORUS [CHEM] Q6 Lab 02/19/21 01:15 Ordered PHOSPHORUS [CHEM] Q6 Lab 02/19/21 07:15 Ordered POTASSIUM,K [CHEM] Q2H Lab 02/18/21 15:15 Ordered POTASSIUM,K [CHEM] Q2H Lab 02/18/21 19:15 Ordered POTASSIUM,K [CHEM] Q2H Lab 02/18/21 23:15 Ordered POTASSIUM,K [CHEM] Q2H Lab 02/19/21 01:15 Ordered POTASSIUM,K [CHEM] Q2 Lab 02/19/21 03:15 Ordered POTASSIUM,K [CHEM] [facility] 02/19/21 05:15 Ordered POTASSIUM,K [CHEM] [facility] 02/19/21 07:15 Ordered POTASSIUM,K [CHEM] [facility] 02/19/21 09:15 Ordered POTASSIUM,K [CHEM] [facility] 02/19/21 11:15 Ordered Dextrose 50% in Water Med 02/18/21 13:00 Active 50 ml IVPUSH ASDIRECTED PRN Insulin Regular in 0.9 % NACL [Myxredlin in NS 100 UNIT Med 02/18/21 13:00 Active /100 ML] 100 ml IV ASDIRECTED Magnesium Sulfate/Water [Magnesium Sulfate in Water 2 Med 02/18/21 13:00 Active GM/50 ML] 50 ml IV ONETIME Potassium Chloride 20 meq Med 02/18/21 12:45 Active Lidocaine 1% [Xylocaine 1%] 2 ml Sodium Chloride 0.9% [Normal Saline] 100 ml IV ONETIME Potassium Chloride [KCL in Water 20 MEQ/100 ML] 20 meq Med 02/18/21 13:00 Active Premix Bag 1 bag IV ASDIRECTED Potassium Chloride [KCL in Water 20 MEQ/100 ML] 20 meq Med 02/18/21 13:00 Active Premix Bag 1 bag IV Q2H Potassium Chloride [KCL in Water 20 MEQ/100 ML] 20 meq Med 02/18/21 13:00 Active Premix Bag 1 bag IV Q2H Potassium Chloride [Potassium Chloride Solution] Med 02/18/21 13:00 Active 20 meq PO ASDIRECTED PRN Potassium Chloride [Potassium Chloride Solution] Med 02/18/21 13:00 Active 40 meq PO ASDIRECTED PRN Potassium Chloride [Potassium Chloride Solution] Med 02/18/21 13:00 Active 40 meq PO Q2H PRN Sodium Chloride 0.9% [Normal Saline] 2,000 ml Med 02/18/21 13:00 Active IV .CONTINUOUS Sodium Chloride 0.9% [Saline Flush] Med 02/18/21 08:49 Active 10 ml FLUSH ASDIRECTED PRN Sodium Phosphate 60 mmole Med 02/18/21 13:00 Active Sodium Chloride 0.9% [Normal Saline] 250 ml IV ONETIME Medication Continuation Instructions [OM.PC] ASDIRECTED Oth 02/18/21 13:15 Ordered Medication Discontinuation Instructions [OM.PC] Oth 02/18/21 13:15 Ordered ASDIRECTED Saline Lock Insert [OM.PC] Routine Oth 02/18/21 08:49 Ordered Resuscitation Status Routine Resus Stat 02/18/21 14:36 Ordered Medication Orders Dextrose/Water (50% Dextrose In Water 50 Ml Syringe) 50 ml IVPUSH ASDIRECTED PRN PRN Reason: Blood Glucose Potassium Chloride 20 meq/Lidocaine HCl 2 ml/ Sodium Chloride 112 mls @ 56 mls/hr IV ONETIME ONE Stop: 02/18/21 14:44 Last Admin: 02/18/21 13:01 Dose: 56 mls/hr Documented by: CHELI Sodium Chloride (Normal Saline) 2,000 mls @ 500 mls/hr IV .CONTINUOUS PRN PRN Reason: Blood Glucose Potassium Chloride 20 meq/ (Premix) 100 mls @ 50 mls/hr IV ASDIRECTED PRN PRN Reason: K+ 3.5-3.9 Potassium Chloride 20 meq/ (Premix) 100 mls @ 50 mls/hr IV Q2H PRN PRN Reason: Hypokalemia 3 - 3.4 Potassium Chloride 20 meq/ (Premix) 100 mls @ 50 mls/hr IV Q2H PRN PRN Reason: Hypokalemia 2.5-2.9 Magnesium Sulfate (Magnesium Sulfate In Water 2 Gm/50 Ml) 50 mls @ 25 mls/hr IV ONETIME PRN PRN Reason: low magnesium Sodium Phosphate 60 mmole/ (Sodium Chloride) 270 mls @ 62.5 mls/hr IV ONETIME PRN PRN Reason: Low phophorus Insulin Regular in 0.9 % NACL (Myxredlin In Ns 100 Unit/100 Ml) 100 mls @ 7.893 mls/hr IV ASDIRECTED ADIA; Protocol Potassium Chloride (Potassium Chloride 10% 20 Meq/15 Ml Soln 15 Ml Ud Cup) 20 meq PO ASDIRECTED PRN PRN Reason: Hypokalemia Potassium Chloride (Potassium Chloride 10% 20 Meq/15 Ml Soln 15 Ml Ud Cup) 40 meq PO ASDIRECTED PRN PRN Reason: Hypokalemia Potassium Chloride (Potassium Chloride 10% 20 Meq/15 Ml Soln 15 Ml Ud Cup) 40 meq PO Q2H PRN PRN Reason: Hypokalemia Sodium Chloride (Sodium Chloride 0.9% 10 Ml Syringe) 10 ml FLUSH ASDIRECTED PRN PRN Reason: Keep Vein Open Last Admin: 02/18/21 09:52 Dose: 10 ml Documented by: CHELI Assessment/Plan Comment:: ASSESSMENT AND PLAN DIABETIC KETOACIDOSIS-no prior history of diabetes. No evidence of underlying infection or other precipitating cause. -Ketoacidosis protocol -IV insulin per IV insulin orders -IV fluids per protocol -Electrolyte management per protocol TYPE 1 DIABETES MELLITUS-new diagnosis -Transition to short and long-acting insulin after ketoacidosis has resolved -Diabetes education for monitoring and insulin management MAINTENANCE ISSUES -DVT prophylaxis; Lovenox 40 mg subcu daily -GI prophylaxis; not indicated -Chaney catheter; not indicated -Nutrition; consistent carbohydrate diet -Nicotine dependence; not required CODE STATUS-FULL CODE ADMISSION STATUS-patient will be admitted to inpatient status, expect at least a 2 night hospital stay for evaluation and management of problems as outlined above. At the time of this admission I do not reasonably expected evaluation and management of this problem will require more than a 96 hour hospital stay. DISPOSITION-anticipate discharge to home after the hospital stay. PRIMARY CARE PROVIDER-currently does not have a primary care provider - Mortality Measure Prognosis:: Good
[2021-02-18] MEDS ORDERED: Ondansetron 4 MG/2 ML SDV IV PRN (14:55)
[2021-02-18] MEDS ORDERED: Acetaminophen 325 MG Tab PO PRN (14:55)
[2021-02-18] MEDS: Insulin Regular in 0.9 % NACL 100 ML IV SCH (15:10)
[2021-02-18] MEDS: Sodium Chloride 0.9% 2,000 ML IV PRN (15:16)
[2021-02-18] MEDS: Enoxaparin 40 MG/0.4 ML Syringe SUBCUT SCH (16:11)
[2021-02-18] MEDS: Potassium Chloride 20 MEQ in Premix Bag 1 BAG IV PRN ×4 (18:15)
[2021-02-18] MEDS: Potassium Chloride 10% 20 MEQ/15 ML Soln 15 ML UD Cup PO PRN (19:46)
[2021-02-18] MEDS: Dextrose 5%-0.45% NaCl 1,000 ML IV SCH (20:00)
[2021-02-18] MEDS: Magnesium Sulfate/Water 50 ML IV PRN (20:32)
[2021-02-18] MEDS ORDERED: NACL IV ONE ×2 (20:41)
[2021-02-18] MEDS ORDERED: POTASSIUM PHOS IV ONE ×2 (20:41)
[2021-02-18] MEDS ORDERED: [UNRECOGNIZED DRUG - OTHER] ONE (20:52)
[2021-02-18] MEDS ORDERED: Potassium Phos in 0.9 % NaCl 15 MMOL in Premix Bag 1 BAG IV ONE ×2 (23:00)
[2021-02-19] MEDS: Potassium Chloride 10% 20 MEQ/15 ML Soln 15 ML UD Cup PO PRN ×2 (00:35→02:41)
[2021-02-19] MEDS ORDERED: Potassium Phos in 0.9 % NaCl 15 MMOL in Premix Bag 1 BAG IV ONE ×4 (01:00→02:59)
[2021-02-19] MEDS: Insulin Regular in 0.9 % NACL 100 ML IV SCH (04:08)
[2021-02-19] MEDS: Potassium Chloride 20 MEQ in Premix Bag 1 BAG IV PRN ×5 (05:56→22:55)
[2021-02-19] MEDS: Dextrose 5%-0.45% NaCl 1,000 ML IV SCH ×3 (06:35→19:33)
[2021-02-19] MEDS: Potassium Chloride 20 MEQ Tab.ER PO SCH ×2 (08:09→10:08)
[2021-02-19] MEDS: Potassium Chloride 20 MEQ in Premix Bag 1 BAG IV SCH ×2 (10:34→12:39)
--- NOTE | 2021-02-19 12:07 | OR ---
DATE OF PROCEDURE: 02/18/2021 SURGEON: Zhen Viveros MD PREOPERATIVE DIAGNOSIS: Inadequate peripheral venous access. POSTOPERATIVE DIAGNOSIS: Inadequate peripheral venous access. PROCEDURE PERFORMED: Insertion of left subclavian vein triple-lumen catheter. ANESTHESIA: Local. INDICATION FOR PROCEDURE: A 45-year-old male admitted with diabetic ketoacidosis and a very limited peripheral venous access. Plan is to proceed with central line insertion. Potential risks including bleeding, infection, pneumohemothorax, vascular injury and such were reviewed, and the patient wishes to proceed. DETAILS OF PROCEDURE: The patient was placed in the supine position and the upper chest and neck areas prepped and draped. The left subclavian area was anesthetized with 1% lidocaine. The left subclavian vein was then cannulated, a guidewire passed, and over the guidewire, a triple-lumen catheter positioned. Good in and outflow was noted, and ports were flushed with heparinized saline. The catheter was sutured to the skin with some 3-0 silk stitch. Subsequent chest x-ray showed no evident complications and the tip of the catheter in the junction of the superior vena cava and right atrium. Zhen Vivreos MD Job #: [id number]
[2021-02-19] MEDS ORDERED: 50% Dextrose in Water 50 ML Syringe IVPUSH PRN (12:53)
--- NOTE | 2021-02-19 12:58 | PCM.PN ---
- General Info Date of Service: 02/19/21 Subjective Update: Mr. Chavira alert today interactive today. He states that he feels significantly improved from yesterday. Blood sugars are under much better control, still has ketoacidosis but significantly improved from admission. Functional Status: Reports: Tolerating Diet, Urinating - Review of Systems General: Reports: Weakness, Fatigue. Denies: Fever, Chills Pulmonary: Reports: No Symptoms Cardiovascular: Reports: No Symptoms Gastrointestinal: Reports: No Symptoms Genitourinary: Reports: No Symptoms - Patient Data Vitals - Most Recent: Last Vital Signs Temp 98 F 02/19/21 12:00 Pulse 84 02/19/21 06:00 Resp 22 H 02/19/21 12:00 BP 133/64 02/19/21 12:00 Pulse Ox 100 02/19/21 12:00 Weight - Most Recent: 173 lb 15.821 oz I&O - Last 24 Hours: Intake & Output 02/18/21 02/19/21 02/19/21 22:59 06:59 14:59 Intake Total 2207 3887 600 Output Total 950 1650 1600 Balance 1257 2237 -1000 Lab Results Last 24 Hours: Laboratory Results - last 24 hr 02/18/21 02/18/21 02/18/21 Range/Units 13:15 15:07 16:05 WBC (4.5-11.0) K/uL RBC (4.30-5.90) M/uL Hgb (12.0-15.0) g/dL Hct (40.0-54.0) % MCV (80-98) fL MCH (27-31) pg MCHC (32-36) % Plt Count (150-400) K/uL Neut % (Auto) (36-66) % Lymph % (Auto) (24-44) % Dubois % (Auto) (2-6) % Eos % (Auto) (2-4) % Baso % (Auto) (0-1) % Sodium 138 L (140-148) mmol/L Potassium 3.0 L (3.6-5.2) mmol/L Chloride 106 (100-108) mmol/L Carbon Dioxide < 5 L (21-32) mmol/L Anion Gap 30.0 H (5.0-14.0) mmol/L BUN 18 (7-18) mg/dL Creatinine 1.1 (0.8-1.3) mg/dL Est Cr Clr Drug Dosing 83.02 mL/min Estimated GFR (MDRD) > 60 (>60) Glucose 328 H (74-106) mg/dL POC Glucose 317 H 268 H (74-106) mg/dL Calcium 8.6 (8.5-10.1) mg/dL Phosphorus 1.9 L (2.5-4.9) mg/dL Magnesium 2.0 (1.8-2.4) mg/dL Total Bilirubin (0.2-1.0) mg/dL AST (15-37) U/L ALT (12-78) U/L Alkaline Phosphatase (46-116) U/L Total Protein (6.4-8.2) g/dL Albumin (3.4-5.0) g/dL Globulin (2.3-3.5) g/dL Albumin/Globulin Ratio (1.2-2.2) 02/18/21 02/18/21 02/18/21 Range/Units 17:08 17:15 18:09 WBC (4.5-11.0) K/uL RBC (4.30-5.90) M/uL Hgb (12.0-15.0) g/dL Hct (40.0-54.0) % MCV (80-98) fL MCH (27-31) pg MCHC (32-36) % Plt Count (150-400) K/uL Neut % (Auto) (36-66) % Lymph % (Auto) (24-44) % Dubois % (Auto) (2-6) % Eos % (Auto) (2-4) % Baso % (Auto) (0-1) % Sodium 143 (140-148) mmol/L Potassium 2.8 L* (3.6-5.2) mmol/L Chloride 110 H (100-108) mmol/L Carbon Dioxide 7 L (21-32) mmol/L Anion Gap 28.8 H (5.0-14.0) mmol/L BUN 17 (7-18) mg/dL Creatinine 1.0 (0.8-1.3) mg/dL Est Cr Clr Drug Dosing 91.32 mL/min Estimated GFR (MDRD) > 60 (>60) Glucose 102 (74-106) mg/dL POC Glucose 140 H 112 H (74-106) mg/dL Calcium 8.4 L (8.5-10.1) mg/dL Phosphorus (2.5-4.9) mg/dL Magnesium (1.8-2.4) mg/dL Total Bilirubin (0.2-1.0) mg/dL AST (15-37) U/L ALT (12-78) U/L Alkaline Phosphatase (46-116) U/L Total Protein (6.4-8.2) g/dL Albumin (3.4-5.0) g/dL Globulin (2.3-3.5) g/dL Albumin/Globulin Ratio (1.2-2.2) 02/18/21 02/18/21 02/18/21 Range/Units 19:25 19:30 19:59 WBC (4.5-11.0) K/uL RBC (4.30-5.90) M/uL Hgb (12.0-15.0) g/dL Hct (40.0-54.0) % MCV (80-98) fL MCH (27-31) pg MCHC (32-36) % Plt Count (150-400) K/uL Neut % (Auto) (36-66) % Lymph % (Auto) (24-44) % Dubois % (Auto) (2-6) % Eos % (Auto) (2-4) % Baso % (Auto) (0-1) % Sodium (140-148) mmol/L Potassium 2.9 L* (3.6-5.2) mmol/L Chloride (100-108) mmol/L Carbon Dioxide (21-32) mmol/L Anion Gap (5.0-14.0) mmol/L BUN (7-18) mg/dL Creatinine (0.8-1.3) mg/dL Est Cr Clr Drug Dosing mL/min Estimated GFR (MDRD) (>60) Glucose (74-106) mg/dL POC Glucose 133 H 131 H (74-106) mg/dL Calcium (8.5-10.1) mg/dL Phosphorus 0.7 L (2.5-4.9) mg/dL Magnesium 1.6 L (1.8-2.4) mg/dL Total Bilirubin (0.2-1.0) mg/dL AST (15-37) U/L ALT (12-78) U/L Alkaline Phosphatase (46-116) U/L Total Protein (6.4-8.2) g/dL Albumin (3.4-5.0) g/dL Globulin (2.3-3.5) g/dL Albumin/Globulin Ratio (1.2-2.2) 02/18/21 02/18/21 02/18/21 Range/Units 21:04 21:15 22:04 WBC (4.5-11.0) K/uL RBC (4.30-5.90) M/uL Hgb (12.0-15.0) g/dL Hct (40.0-54.0) % MCV (80-98) fL MCH (27-31) pg MCHC (32-36) % Plt Count (150-400) K/uL Neut % (Auto) (36-66) % Lymph % (Auto) (24-44) % Dubois % (Auto) (2-6) % Eos % (Auto) (2-4) % Baso % (Auto) (0-1) % Sodium 140 (140-148) mmol/L Potassium 3.1 L (3.6-5.2) mmol/L Chloride 110 H (100-108) mmol/L Carbon Dioxide 7 L (21-32) mmol/L Anion Gap 26.1 H (5.0-14.0) mmol/L BUN 15 (7-18) mg/dL Creatinine 1.0 (0.8-1.3) mg/dL Est Cr Clr Drug Dosing 91.32 mL/min Estimated GFR (MDRD) > 60 (>60) Glucose 282 H (74-106) mg/dL POC Glucose 251 H 305 H (74-106) mg/dL Calcium 7.7 L (8.5-10.1) mg/dL Phosphorus (2.5-4.9) mg/dL Magnesium (1.8-2.4) mg/dL Total Bilirubin (0.2-1.0) mg/dL AST (15-37) U/L ALT (12-78) U/L Alkaline Phosphatase (46-116) U/L Total Protein (6.4-8.2) g/dL Albumin (3.4-5.0) g/dL Globulin (2.3-3.5) g/dL Albumin/Globulin Ratio (1.2-2.2) 02/18/21 02/18/21 02/19/21 Range/Units 23:05 23:21 00:04 WBC (4.5-11.0) K/uL RBC (4.30-5.90) M/uL Hgb (12.0-15.0) g/dL Hct (40.0-54.0) % MCV (80-98) fL MCH (27-31) pg MCHC (32-36) % Plt Count (150-400) K/uL Neut % (Auto) (36-66) % Lymph % (Auto) (24-44) % Dubois % (Auto) (2-6) % Eos % (Auto) (2-4) % Baso % (Auto) (0-1) % Sodium (140-148) mmol/L Potassium 2.7 L* (3.6-5.2) mmol/L Chloride (100-108) mmol/L Carbon Dioxide (21-32) mmol/L Anion Gap (5.0-14.0) mmol/L BUN (7-18) mg/dL Creatinine (0.8-1.3) mg/dL Est Cr Clr Drug Dosing mL/min Estimated GFR (MDRD) (>60) Glucose (74-106) mg/dL POC Glucose 186 H 247 H (74-106) mg/dL Calcium (8.5-10.1) mg/dL Phosphorus (2.5-4.9) mg/dL Magnesium (1.8-2.4) mg/dL Total Bilirubin (0.2-1.0) mg/dL AST (15-37) U/L ALT (12-78) U/L Alkaline Phosphatase (46-116) U/L Total Protein (6.4-8.2) g/dL Albumin (3.4-5.0) g/dL Globulin (2.3-3.5) g/dL Albumin/Globulin Ratio (1.2-2.2) 02/19/21 02/19/21 02/19/21 Range/Units 01:02 01:20 02:05 WBC (4.5-11.0) K/uL RBC (4.30-5.90) M/uL Hgb (12.0-15.0) g/dL Hct (40.0-54.0) % MCV (80-98) fL MCH (27-31) pg MCHC (32-36) % Plt Count (150-400) K/uL Neut % (Auto) (36-66) % Lymph % (Auto) (24-44) % Dubois % (Auto) (2-6) % Eos % (Auto) (2-4) % Baso % (Auto) (0-1) % Sodium 141 (140-148) mmol/L Potassium 3.4 L (3.6-5.2) mmol/L Chloride 112 H (100-108) mmol/L Carbon Dioxide 10 L (21-32) mmol/L Anion Gap 22.4 H (5.0-14.0) mmol/L BUN 14 (7-18) mg/dL Creatinine 0.8 (0.8-1.3) mg/dL Est Cr Clr Drug Dosing 113.77 mL/min Estimated GFR (MDRD) > 60 (>60) Glucose 151 H (74-106) mg/dL POC Glucose 150 H 133 H (74-106) mg/dL Calcium 7.4 L (8.5-10.1) mg/dL Phosphorus 1.1 L (2.5-4.9) mg/dL Magnesium 1.9 (1.8-2.4) mg/dL Total Bilirubin (0.2-1.0) mg/dL AST (15-37) U/L ALT (12-78) U/L Alkaline Phosphatase (46-116) U/L Total Protein (6.4-8.2) g/dL Albumin (3.4-5.0) g/dL Globulin (2.3-3.5) g/dL Albumin/Globulin Ratio (1.2-2.2) 02/19/21 02/19/21 02/19/21 Range/Units 03:02 03:15 04:04 WBC (4.5-11.0) K/uL RBC (4.30-5.90) M/uL Hgb (12.0-15.0) g/dL Hct (40.0-54.0) % MCV (80-98) fL MCH (27-31) pg MCHC (32-36) % Plt Count (150-400) K/uL Neut % (Auto) (36-66) % Lymph % (Auto) (24-44) % Dubois % (Auto) (2-6) % Eos % (Auto) (2-4) % Baso % (Auto) (0-1) % Sodium (140-148) mmol/L Potassium 3.2 L (3.6-5.2) mmol/L Chloride (100-108) mmol/L Carbon Dioxide (21-32) mmol/L Anion Gap (5.0-14.0) mmol/L BUN (7-18) mg/dL Creatinine (0.8-1.3) mg/dL Est Cr Clr Drug Dosing mL/min Estimated GFR (MDRD) (>60) Glucose (74-106) mg/dL POC Glucose 145 H 202 H (74-106) mg/dL Calcium (8.5-10.1) mg/dL Phosphorus (2.5-4.9) mg/dL Magnesium (1.8-2.4) mg/dL Total Bilirubin (0.2-1.0) mg/dL AST (15-37) U/L ALT (12-78) U/L Alkaline Phosphatase (46-116) U/L Total Protein (6.4-8.2) g/dL Albumin (3.4-5.0) g/dL Globulin (2.3-3.5) g/dL Albumin/Globulin Ratio (1.2-2.2) 02/19/21 02/19/21 02/19/21 Range/Units 05:04 05:15 05:15 WBC 12.3 H (4.5-11.0) K/uL RBC 3.49 L (4.30-5.90) M/uL Hgb 10.2 L D (12.0-15.0) g/dL Hct 28.6 L (40.0-54.0) % MCV 82 (80-98) fL MCH 29 (27-31) pg MCHC 36 (32-36) % Plt Count 156 (150-400) K/uL Neut % (Auto) 86.0 H (36-66) % Lymph % (Auto) 5.0 L (24-44) % Dubois % (Auto) 8.0 H (2-6) % Eos % (Auto) 0.0 L (2-4) % Baso % (Auto) 0.0 (0-1) % Sodium 141 (140-148) mmol/L Potassium 3.0 L (3.6-5.2) mmol/L Chloride 111 H (100-108) mmol/L Carbon Dioxide 10 L (21-32) mmol/L Anion Gap 23.0 H (5.0-14.0) mmol/L BUN 11 (7-18) mg/dL Creatinine 0.8 (0.8-1.3) mg/dL Est Cr Clr Drug Dosing 113.77 mL/min Estimated GFR (MDRD) > 60 (>60) Glucose 176 H (74-106) mg/dL POC Glucose 189 H (74-106) mg/dL Calcium 7.2 L (8.5-10.1) mg/dL Phosphorus (2.5-4.9) mg/dL Magnesium (1.8-2.4) mg/dL Total Bilirubin 0.3 (0.2-1.0) mg/dL AST 57 H (15-37) U/L ALT 90 H (12-78) U/L Alkaline Phosphatase 125 H (46-116) U/L Total Protein 5.4 L (6.4-8.2) g/dL Albumin 2.5 L (3.4-5.0) g/dL Globulin 2.9 (2.3-3.5) g/dL Albumin/Globulin Ratio 0.9 L (1.2-2.2) 02/19/21 02/19/21 02/19/21 Range/Units 06:03 07:15 07:23 WBC (4.5-11.0) K/uL RBC (4.30-5.90) M/uL Hgb (12.0-15.0) g/dL Hct (40.0-54.0) % MCV (80-98) fL MCH (27-31) pg MCHC (32-36) % Plt Count (150-400) K/uL Neut % (Auto) (36-66) % Lymph % (Auto) (24-44) % Dubois % (Auto) (2-6) % Eos % (Auto) (2-4) % Baso % (Auto) (0-1) % Sodium (140-148) mmol/L Potassium 2.9 L* (3.6-5.2) mmol/L Chloride (100-108) mmol/L Carbon Dioxide (21-32) mmol/L Anion Gap (5.0-14.0) mmol/L BUN (7-18) mg/dL Creatinine (0.8-1.3) mg/dL Est Cr Clr Drug Dosing mL/min Estimated GFR (MDRD) (>60) Glucose (74-106) mg/dL POC Glucose 191 H 144 H (74-106) mg/dL Calcium (8.5-10.1) mg/dL Phosphorus 1.1 L (2.5-4.9) mg/dL Magnesium 1.8 (1.8-2.4) mg/dL Total Bilirubin (0.2-1.0) mg/dL AST (15-37) U/L ALT (12-78) U/L Alkaline Phosphatase (46-116) U/L Total Protein (6.4-8.2) g/dL Albumin (3.4-5.0) g/dL Globulin (2.3-3.5) g/dL Albumin/Globulin Ratio (1.2-2.2) 02/19/21 02/19/21 02/19/21 Range/Units 08:05 09:01 09:46 WBC (4.5-11.0) K/uL RBC (4.30-5.90) M/uL Hgb (12.0-15.0) g/dL Hct (40.0-54.0) % MCV (80-98) fL MCH (27-31) pg MCHC (32-36) % Plt Count (150-400) K/uL Neut % (Auto) (36-66) % Lymph % (Auto) (24-44) % Dubois % (Auto) (2-6) % Eos % (Auto) (2-4) % Baso % (Auto) (0-1) % Sodium 137 L (140-148) mmol/L Potassium 3.0 L (3.6-5.2) mmol/L Chloride 107 (100-108) mmol/L Carbon Dioxide 12 L (21-32) mmol/L Anion Gap 21.0 H (5.0-14.0) mmol/L BUN 9 (7-18) mg/dL Creatinine 0.9 (0.8-1.3) mg/dL Est Cr Clr Drug Dosing 101.13 mL/min Estimated GFR (MDRD) > 60 (>60) Glucose 280 H (74-106) mg/dL POC Glucose 149 H 242 H (74-106) mg/dL Calcium 7.7 L (8.5-10.1) mg/dL Phosphorus (2.5-4.9) mg/dL Magnesium (1.8-2.4) mg/dL Total Bilirubin (0.2-1.0) mg/dL AST (15-37) U/L ALT (12-78) U/L Alkaline Phosphatase (46-116) U/L Total Protein (6.4-8.2) g/dL Albumin (3.4-5.0) g/dL Globulin (2.3-3.5) g/dL Albumin/Globulin Ratio (1.2-2.2) 02/19/21 02/19/21 02/19/21 Range/Units 10:11 11:00 11:24 WBC (4.5-11.0) K/uL RBC (4.30-5.90) M/uL Hgb (12.0-15.0) g/dL Hct (40.0-54.0) % MCV (80-98) fL MCH (27-31) pg MCHC (32-36) % Plt Count (150-400) K/uL Neut % (Auto) (36-66) % Lymph % (Auto) (24-44) % Dubois % (Auto) (2-6) % Eos % (Auto) (2-4) % Baso % (Auto) (0-1) % Sodium (140-148) mmol/L Potassium 3.1 L (3.6-5.2) mmol/L Chloride (100-108) mmol/L Carbon Dioxide (21-32) mmol/L Anion Gap (5.0-14.0) mmol/L BUN (7-18) mg/dL Creatinine (0.8-1.3) mg/dL Est Cr Clr Drug Dosing mL/min Estimated GFR (MDRD) (>60) Glucose (74-106) mg/dL POC Glucose 270 H 224 H (74-106) mg/dL Calcium (8.5-10.1) mg/dL Phosphorus (2.5-4.9) mg/dL Magnesium (1.8-2.4) mg/dL Total Bilirubin (0.2-1.0) mg/dL AST (15-37) U/L ALT (12-78) U/L Alkaline Phosphatase (46-116) U/L Total Protein (6.4-8.2) g/dL Albumin (3.4-5.0) g/dL Globulin (2.3-3.5) g/dL Albumin/Globulin Ratio (1.2-2.2) 02/19/21 Range/Units 12:02 WBC (4.5-11.0) K/uL RBC (4.30-5.90) M/uL Hgb (12.0-15.0) g/dL Hct (40.0-54.0) % MCV (80-98) fL MCH (27-31) pg MCHC (32-36) % Plt Count (150-400) K/uL Neut % (Auto) (36-66) % Lymph % (Auto) (24-44) % Dubois % (Auto) (2-6) % Eos % (Auto) (2-4) % Baso % (Auto) (0-1) % Sodium (140-148) mmol/L Potassium (3.6-5.2) mmol/L Chloride (100-108) mmol/L Carbon Dioxide (21-32) mmol/L Anion Gap (5.0-14.0) mmol/L BUN (7-18) mg/dL Creatinine (0.8-1.3) mg/dL Est Cr Clr Drug Dosing mL/min Estimated GFR (MDRD) (>60) Glucose (74-106) mg/dL POC Glucose 166 H (74-106) mg/dL Calcium (8.5-10.1) mg/dL Phosphorus (2.5-4.9) mg/dL Magnesium (1.8-2.4) mg/dL Total Bilirubin (0.2-1.0) mg/dL AST (15-37) U/L ALT (12-78) U/L Alkaline Phosphatase (46-116) U/L Total Protein (6.4-8.2) g/dL Albumin (3.4-5.0) g/dL Globulin (2.3-3.5) g/dL Albumin/Globulin Ratio (1.2-2.2) Med Orders - Current: Current Medications Acetaminophen (Acetaminophen 325 Mg Tab) 650 mg PO Q4H PRN PRN Reason: Pain (Mild 1-3)/fever Dextrose/Water (50% Dextrose In Water 50 Ml Syringe) 50 ml IVPUSH ASDIRECTED PRN PRN Reason: Blood Glucose Dextrose/Water (50% Dextrose In Water 50 Ml Syringe) 50 ml IVPUSH ONETIME PRN PRN Reason: Blood Glucose Enoxaparin Sodium (Enoxaparin 40 Mg/0.4 Ml Syringe) 40 mg SUBCUT Q24H ADIA Last Admin: 02/18/21 16:11 Dose: 40 mg Documented by: Heparin Sodium (Porcine) (Heparin Sodium 100 Units/Ml 5 Ml Syringe) 500 units FLUSH ASDIRECTED PRN PRN Reason: Keep Vein Open Last Admin: 02/18/21 17:50 Dose: 500 units Documented by: Sodium Chloride (Normal Saline) 2,000 mls @ 500 mls/hr IV .CONTINUOUS PRN PRN Reason: Blood Glucose Last Admin: 02/18/21 15:16 Dose: 500 mls/hr Documented by: Potassium Chloride 20 meq/ (Premix) 100 mls @ 50 mls/hr IV ASDIRECTED PRN PRN Reason: K+ 3.5-3.9 Potassium Chloride 20 meq/ (Premix) 100 mls @ 50 mls/hr IV Q2H PRN PRN Reason: Hypokalemia 2.5-2.9 Last Admin: 02/18/21 18:15 Dose: 50 mls/hr Documented by: Magnesium Sulfate (Magnesium Sulfate In Water 2 Gm/50 Ml) 50 mls @ 25 mls/hr IV ONETIME PRN PRN Reason: low magnesium Last Admin: 02/18/21 20:32 Dose: 25 mls/hr Documented by: Sodium Phosphate 60 mmole/ (Sodium Chloride) 270 mls @ 62.5 mls/hr IV ONETIME PRN PRN Reason: Low phophorus Insulin Regular in 0.9 % NACL (Myxredlin In Ns 100 Unit/100 Ml) 100 mls @ 7.893 mls/hr IV ASDIRECTED ADIA; Protocol Last Infusion: 02/19/21 12:03 Dose: 0.03 units/kg/hr, 2 mls/hr Documented by: Dextrose/Sodium Chloride (Dextrose 5%-1/2 Ns) 1,000 mls @ 150 mls/hr IV ASDIRECTED ADIA Last Admin: 02/19/21 06:35 Dose: 150 mls/hr Documented by: Potassium Chloride 20 meq/ (Premix) 100 mls @ 50 mls/hr IV Q2H ADIA Stop: 02/19/21 14:29 Last Admin: 02/19/21 12:39 Dose: 50 mls/hr Documented by: Potassium Chloride 20 meq/ (Premix) 100 mls @ 50 mls/hr IV Q2H PRN PRN Reason: Hypokalemia 3 - 3.4 Ondansetron HCl (Ondansetron 4 Mg/2 Ml Sdv) 4 mg IV Q4H PRN PRN Reason: Nausea/Vomiting Potassium Chloride (Potassium Chloride 10% 20 Meq/15 Ml Soln 15 Ml Ud Cup) 20 meq PO ASDIRECTED PRN PRN Reason: Hypokalemia Potassium Chloride (Potassium Chloride 10% 20 Meq/15 Ml Soln 15 Ml Ud Cup) 40 meq PO ASDIRECTED PRN PRN Reason: Hypokalemia Last Admin: 02/19/21 02:41 Dose: 40 meq Documented by: Potassium Chloride (Potassium Chloride 10% 20 Meq/15 Ml Soln 15 Ml Ud Cup) 40 meq PO Q2H PRN PRN Reason: Hypokalemia Senna/Docusate Sodium (Docusate Sodium/Sennosides 50-8.6 Mg Tab) 1 tab PO BID PRN PRN Reason: Constipation Sodium Chloride (Sodium Chloride 0.9% 10 Ml Syringe) 10 ml FLUSH ASDIRECTED PRN PRN Reason: Keep Vein Open Discontinued Medications Acetaminophen (Acetaminophen 500 Mg Tab) 1,000 mg PO ONETIME ONE Stop: 02/18/21 11:50 Heparin Sodium (Porcine) (Heparin Sodium 100 Units/Ml 5 Ml Syringe) Confirm Administered Dose 500 units .ROUTE .STK-MED ONE Stop: 02/18/21 16:14 Last Admin: 02/18/21 18:17 Dose: Not Given Documented by: Lactated Ringer's (Ringers, Lactated) 1,000 mls @ 1,000 mls/hr IV BOLUS ONE Stop: 02/18/21 09:51 Last Admin: 02/18/21 09:51 Dose: 1,000 mls/hr Documented by: Insulin Regular in 0.9 % NACL (Myxredlin In Ns 100 Unit/100 Ml) 100 unit in 100 mls @ 7.893 mls/hr IV ASDIRECTED [facility] Last Admin: 02/18/21 09:53 Dose: 0.1 units/kg/hr, 7.893 mls/hr Documented by: Sodium Chloride (Normal Saline) 1,000 mls @ 1,000 mls/hr IV .BOLUS ONE Stop: 02/18/21 12:49 Last Admin: 02/18/21 12:58 Dose: 1,000 mls/hr Documented by: Potassium Chloride 20 meq/Lidocaine HCl 2 ml/ Sodium Chloride 112 mls @ 56 mls/hr IV ONETIME ONE Stop: 02/18/21 14:44 Last Admin: 02/18/21 13:01 Dose: 56 mls/hr Documented by: Potassium Chloride 20 meq/ (Premix) 100 mls @ 50 mls/hr IV Q2H PRN PRN Reason: Hypokalemia 3 - 3.4 Last Admin: 02/19/21 08:02 Dose: 50 mls/hr Documented by: Potassium Phosphate 15 mmol/ (Premix) 250 mls @ 125 mls/hr IV ONETIME ONE Stop: 02/18/21 22:40 Last Admin: 02/18/21 21:07 Dose: 125 mls/hr Documented by: Premix (Premix Bag) Confirm Administered Dose 3 mls @ as directed .ROUTE .STK- MED ONE Stop: 02/18/21 20:53 Last Admin: 02/18/21 21:12 Dose: Not Given Documented by: Potassium Phosphate 15 mmol/ (Premix) 250 mls @ 125 mls/hr IV ONETIME ONE Stop: 02/19/21 00:59 Last Admin: 02/18/21 23:07 Dose: 125 mls/hr Documented by: Potassium Phosphate 15 mmol/ (Premix) 250 mls @ 125 mls/hr IV ONETIME ONE Stop: 02/19/21 02:59 Last Admin: 02/19/21 01:10 Dose: 125 mls/hr Documented by: Potassium Phosphate 15 mmol/ (Premix) 250 mls @ 125 mls/hr IV ONETIME ONE Stop: 02/19/21 04:58 Last Admin: 02/19/21 03:13 Dose: 125 mls/hr Documented by: Potassium Chloride (Potassium Chloride 20 Meq Tab.Er) 40 meq PO ONETIME ONE Stop: 02/18/21 11:52 Last Admin: 02/18/21 13:05 Dose: 40 meq Documented by: Potassium Chloride (Potassium Chloride 20 Meq Tab.Er) 40 meq PO Q2H ADIA Stop: 02/19/21 10:16 Last Admin: 02/19/21 10:08 Dose: 40 meq Documented by: Sodium Chloride (Sodium Chloride 0.9% 10 Ml Syringe) 10 ml FLUSH ASDIRECTED PRN PRN Reason: Keep Vein Open Last Admin: 02/18/21 09:52 Dose: 10 ml Documented by: - Exam Quality Assessment: DVT Prophylaxis General: Alert, Oriented, Cooperative, Mild Distress Lungs: Clear to Auscultation, Normal Respiratory Effort Cardiovascular: Regular Rate, Regular Rhythm, No Murmurs GI/Abdominal Exam: Soft, Non-Tender, No Organomegaly, No Distention Extremities: Non-Tender, No Pedal Edema - Patient Data Lab Results Last 24 hrs: Laboratory Results - last 24 hr 02/18/21 02/18/21 02/18/21 Range/Units 13:15 15:07 16:05 WBC (4.5-11.0) K/uL RBC (4.30-5.90) M/uL Hgb (12.0-15.0) g/dL Hct (40.0-54.0) % MCV (80-98) fL MCH (27-31) pg MCHC (32-36) % Plt Count (150-400) K/uL Neut % (Auto) (36-66) % Lymph % (Auto) (24-44) % Dubois % (Auto) (2-6) % Eos % (Auto) (2-4) % Baso % (Auto) (0-1) % Sodium 138 L (140-148) mmol/L Potassium 3.0 L (3.6-5.2) mmol/L Chloride 106 (100-108) mmol/L Carbon Dioxide < 5 L (21-32) mmol/L Anion Gap 30.0 H (5.0-14.0) mmol/L BUN 18 (7-18) mg/dL Creatinine 1.1 (0.8-1.3) mg/dL Est Cr Clr Drug Dosing 83.02 mL/min Estimated GFR (MDRD) > 60 (>60) Glucose 328 H (74-106) mg/dL POC Glucose 317 H 268 H (74-106) mg/dL Calcium 8.6 (8.5-10.1) mg/dL Phosphorus 1.9 L (2.5-4.9) mg/dL Magnesium 2.0 (1.8-2.4) mg/dL Total Bilirubin (0.2-1.0) mg/dL AST (15-37) U/L ALT (12-78) U/L Alkaline Phosphatase (46-116) U/L Total Protein (6.4-8.2) g/dL Albumin (3.4-5.0) g/dL Globulin (2.3-3.5) g/dL Albumin/Globulin Ratio (1.2-2.2) 02/18/21 02/18/21 02/18/21 Range/Units 17:08 17:15 18:09 WBC (4.5-11.0) K/uL RBC (4.30-5.90) M/uL Hgb (12.0-15.0) g/dL Hct (40.0-54.0) % MCV (80-98) fL MCH (27-31) pg MCHC (32-36) % Plt Count (150-400) K/uL Neut % (Auto) (36-66) % Lymph % (Auto) (24-44) % Dubois % (Auto) (2-6) % Eos % (Auto) (2-4) % Baso % (Auto) (0-1) % Sodium 143 (140-148) mmol/L Potassium 2.8 L* (3.6-5.2) mmol/L Chloride 110 H (100-108) mmol/L Carbon Dioxide 7 L (21-32) mmol/L Anion Gap 28.8 H (5.0-14.0) mmol/L BUN 17 (7-18) mg/dL Creatinine 1.0 (0.8-1.3) mg/dL Est Cr Clr Drug Dosing 91.32 mL/min Estimated GFR (MDRD) > 60 (>60) Glucose 102 (74-106) mg/dL POC Glucose 140 H 112 H (74-106) mg/dL Calcium 8.4 L (8.5-10.1) mg/dL Phosphorus (2.5-4.9) mg/dL Magnesium (1.8-2.4) mg/dL Total Bilirubin (0.2-1.0) mg/dL AST (15-37) U/L ALT (12-78) U/L Alkaline Phosphatase (46-116) U/L Total Protein (6.4-8.2) g/dL Albumin (3.4-5.0) g/dL Globulin (2.3-3.5) g/dL Albumin/Globulin Ratio (1.2-2.2) 02/18/21 02/18/21 02/18/21 Range/Units 19:25 19:30 19:59 WBC (4.5-11.0) K/uL RBC (4.30-5.90) M/uL Hgb (12.0-15.0) g/dL Hct (40.0-54.0) % MCV (80-98) fL MCH (27-31) pg MCHC (32-36) % Plt Count (150-400) K/uL Neut % (Auto) (36-66) % Lymph % (Auto) (24-44) % Dubois % (Auto) (2-6) % Eos % (Auto) (2-4) % Baso % (Auto) (0-1) % Sodium (140-148) mmol/L Potassium 2.9 L* (3.6-5.2) mmol/L Chloride (100-108) mmol/L Carbon Dioxide (21-32) mmol/L Anion Gap (5.0-14.0) mmol/L BUN (7-18) mg/dL Creatinine (0.8-1.3) mg/dL Est Cr Clr Drug Dosing mL/min Estimated GFR (MDRD) (>60) Glucose (74-106) mg/dL POC Glucose 133 H 131 H (74-106) mg/dL Calcium (8.5-10.1) mg/dL Phosphorus 0.7 L (2.5-4.9) mg/dL Magnesium 1.6 L (1.8-2.4) mg/dL Total Bilirubin (0.2-1.0) mg/dL AST (15-37) U/L ALT (12-78) U/L Alkaline Phosphatase (46-116) U/L Total Protein (6.4-8.2) g/dL Albumin (3.4-5.0) g/dL Globulin (2.3-3.5) g/dL Albumin/Globulin Ratio (1.2-2.2) 02/18/21 02/18/21 02/18/21 Range/Units 21:04 21:15 22:04 WBC (4.5-11.0) K/uL RBC (4.30-5.90) M/uL Hgb (12.0-15.0) g/dL Hct (40.0-54.0) % MCV (80-98) fL MCH (27-31) pg MCHC (32-36) % Plt Count (150-400) K/uL Neut % (Auto) (36-66) % Lymph % (Auto) (24-44) % Dubois % (Auto) (2-6) % Eos % (Auto) (2-4) % Baso % (Auto) (0-1) % Sodium 140 (140-148) mmol/L Potassium 3.1 L (3.6-5.2) mmol/L Chloride 110 H (100-108) mmol/L Carbon Dioxide 7 L (21-32) mmol/L Anion Gap 26.1 H (5.0-14.0) mmol/L BUN 15 (7-18) mg/dL Creatinine 1.0 (0.8-1.3) mg/dL Est Cr Clr Drug Dosing 91.32 mL/min Estimated GFR (MDRD) > 60 (>60) Glucose 282 H (74-106) mg/dL POC Glucose 251 H 305 H (74-106) mg/dL Calcium 7.7 L (8.5-10.1) mg/dL Phosphorus (2.5-4.9) mg/dL Magnesium (1.8-2.4) mg/dL Total Bilirubin (0.2-1.0) mg/dL AST (15-37) U/L ALT (12-78) U/L Alkaline Phosphatase (46-116) U/L Total Protein (6.4-8.2) g/dL Albumin (3.4-5.0) g/dL Globulin (2.3-3.5) g/dL Albumin/Globulin Ratio (1.2-2.2) 02/18/21 02/18/21 02/19/21 Range/Units 23:05 23:21 00:04 WBC (4.5-11.0) K/uL RBC (4.30-5.90) M/uL Hgb (12.0-15.0) g/dL Hct (40.0-54.0) % MCV (80-98) fL MCH (27-31) pg MCHC (32-36) % Plt Count (150-400) K/uL Neut % (Auto) (36-66) % Lymph % (Auto) (24-44) % Dubois % (Auto) (2-6) % Eos % (Auto) (2-4) % Baso % (Auto) (0-1) % Sodium (140-148) mmol/L Potassium 2.7 L* (3.6-5.2) mmol/L Chloride (100-108) mmol/L Carbon Dioxide (21-32) mmol/L Anion Gap (5.0-14.0) mmol/L BUN (7-18) mg/dL Creatinine (0.8-1.3) mg/dL Est Cr Clr Drug Dosing mL/min Estimated GFR (MDRD) (>60) Glucose (74-106) mg/dL POC Glucose 186 H 247 H (74-106) mg/dL Calcium (8.5-10.1) mg/dL Phosphorus (2.5-4.9) mg/dL Magnesium (1.8-2.4) mg/dL Total Bilirubin (0.2-1.0) mg/dL AST (15-37) U/L ALT (12-78) U/L Alkaline Phosphatase (46-116) U/L Total Protein (6.4-8.2) g/dL Albumin (3.4-5.0) g/dL Globulin (2.3-3.5) g/dL Albumin/Globulin Ratio (1.2-2.2) 02/19/21 02/19/21 02/19/21 Range/Units 01:02 01:20 02:05 WBC (4.5-11.0) K/uL RBC (4.30-5.90) M/uL Hgb (12.0-15.0) g/dL Hct (40.0-54.0) % MCV (80-98) fL MCH (27-31) pg MCHC (32-36) % Plt Count (150-400) K/uL Neut % (Auto) (36-66) % Lymph % (Auto) (24-44) % Dubois % (Auto) (2-6) % Eos % (Auto) (2-4) % Baso % (Auto) (0-1) % Sodium 141 (140-148) mmol/L Potassium 3.4 L (3.6-5.2) mmol/L Chloride 112 H (100-108) mmol/L Carbon Dioxide 10 L (21-32) mmol/L Anion Gap 22.4 H (5.0-14.0) mmol/L BUN 14 (7-18) mg/dL Creatinine 0.8 (0.8-1.3) mg/dL Est Cr Clr Drug Dosing 113.77 mL/min Estimated GFR (MDRD) > 60 (>60) Glucose 151 H (74-106) mg/dL POC Glucose 150 H 133 H (74-106) mg/dL Calcium 7.4 L (8.5-10.1) mg/dL Phosphorus 1.1 L (2.5-4.9) mg/dL Magnesium 1.9 (1.8-2.4) mg/dL Total Bilirubin (0.2-1.0) mg/dL AST (15-37) U/L ALT (12-78) U/L Alkaline Phosphatase (46-116) U/L Total Protein (6.4-8.2) g/dL Albumin (3.4-5.0) g/dL Globulin (2.3-3.5) g/dL Albumin/Globulin Ratio (1.2-2.2) 02/19/21 02/19/21 02/19/21 Range/Units 03:02 03:15 04:04 WBC (4.5-11.0) K/uL RBC (4.30-5.90) M/uL Hgb (12.0-15.0) g/dL Hct (40.0-54.0) % MCV (80-98) fL MCH (27-31) pg MCHC (32-36) % Plt Count (150-400) K/uL Neut % (Auto) (36-66) % Lymph % (Auto) (24-44) % Dubois % (Auto) (2-6) % Eos % (Auto) (2-4) % Baso % (Auto) (0-1) % Sodium (140-148) mmol/L Potassium 3.2 L (3.6-5.2) mmol/L Chloride (100-108) mmol/L Carbon Dioxide (21-32) mmol/L Anion Gap (5.0-14.0) mmol/L BUN (7-18) mg/dL Creatinine (0.8-1.3) mg/dL Est Cr Clr Drug Dosing mL/min Estimated GFR (MDRD) (>60) Glucose (74-106) mg/dL POC Glucose 145 H 202 H (74-106) mg/dL Calcium (8.5-10.1) mg/dL Phosphorus (2.5-4.9) mg/dL Magnesium (1.8-2.4) mg/dL Total Bilirubin (0.2-1.0) mg/dL AST (15-37) U/L ALT (12-78) U/L Alkaline Phosphatase (46-116) U/L Total Protein (6.4-8.2) g/dL Albumin (3.4-5.0) g/dL Globulin (2.3-3.5) g/dL Albumin/Globulin Ratio (1.2-2.2) 02/19/21 02/19/21 02/19/21 Range/Units 05:04 05:15 05:15 WBC 12.3 H (4.5-11.0) K/uL RBC 3.49 L (4.30-5.90) M/uL Hgb 10.2 L D (12.0-15.0) g/dL Hct 28.6 L (40.0-54.0) % MCV 82 (80-98) fL MCH 29 (27-31) pg MCHC 36 (32-36) % Plt Count 156 (150-400) K/uL Neut % (Auto) 86.0 H (36-66) % Lymph % (Auto) 5.0 L (24-44) % Dubois % (Auto) 8.0 H (2-6) % Eos % (Auto) 0.0 L (2-4) % Baso % (Auto) 0.0 (0-1) % Sodium 141 (140-148) mmol/L Potassium 3.0 L (3.6-5.2) mmol/L Chloride 111 H (100-108) mmol/L Carbon Dioxide 10 L (21-32) mmol/L Anion Gap 23.0 H (5.0-14.0) mmol/L BUN 11 (7-18) mg/dL Creatinine 0.8 (0.8-1.3) mg/dL Est Cr Clr Drug Dosing 113.77 mL/min Estimated GFR (MDRD) > 60 (>60) Glucose 176 H (74-106) mg/dL POC Glucose 189 H (74-106) mg/dL Calcium 7.2 L (8.5-10.1) mg/dL Phosphorus (2.5-4.9) mg/dL Magnesium (1.8-2.4) mg/dL Total Bilirubin 0.3 (0.2-1.0) mg/dL AST 57 H (15-37) U/L ALT 90 H (12-78) U/L Alkaline Phosphatase 125 H (46-116) U/L Total Protein 5.4 L (6.4-8.2) g/dL Albumin 2.5 L (3.4-5.0) g/dL Globulin 2.9 (2.3-3.5) g/dL Albumin/Globulin Ratio 0.9 L (1.2-2.2) 02/19/21 02/19/21 02/19/21 Range/Units 06:03 07:15 07:23 WBC (4.5-11.0) K/uL RBC (4.30-5.90) M/uL Hgb (12.0-15.0) g/dL Hct (40.0-54.0) % MCV (80-98) fL MCH (27-31) pg MCHC (32-36) % Plt Count (150-400) K/uL Neut % (Auto) (36-66) % Lymph % (Auto) (24-44) % Dubois % (Auto) (2-6) % Eos % (Auto) (2-4) % Baso % (Auto) (0-1) % Sodium (140-148) mmol/L Potassium 2.9 L* (3.6-5.2) mmol/L Chloride (100-108) mmol/L Carbon Dioxide (21-32) mmol/L Anion Gap (5.0-14.0) mmol/L BUN (7-18) mg/dL Creatinine (0.8-1.3) mg/dL Est Cr Clr Drug Dosing mL/min Estimated GFR (MDRD) (>60) Glucose (74-106) mg/dL POC Glucose 191 H 144 H (74-106) mg/dL Calcium (8.5-10.1) mg/dL Phosphorus 1.1 L (2.5-4.9) mg/dL Magnesium 1.8 (1.8-2.4) mg/dL Total Bilirubin (0.2-1.0) mg/dL AST (15-37) U/L ALT (12-78) U/L Alkaline Phosphatase (46-116) U/L Total Protein (6.4-8.2) g/dL Albumin (3.4-5.0) g/dL Globulin (2.3-3.5) g/dL Albumin/Globulin Ratio (1.2-2.2) 02/19/21 02/19/21 02/19/21 Range/Units 08:05 09:01 09:46 WBC (4.5-11.0) K/uL RBC (4.30-5.90) M/uL Hgb (12.0-15.0) g/dL Hct (40.0-54.0) % MCV (80-98) fL MCH (27-31) pg MCHC (32-36) % Plt Count (150-400) K/uL Neut % (Auto) (36-66) % Lymph % (Auto) (24-44) % Dubois % (Auto) (2-6) % Eos % (Auto) (2-4) % Baso % (Auto) (0-1) % Sodium 137 L (140-148) mmol/L Potassium 3.0 L (3.6-5.2) mmol/L Chloride 107 (100-108) mmol/L Carbon Dioxide 12 L (21-32) mmol/L Anion Gap 21.0 H (5.0-14.0) mmol/L BUN 9 (7-18) mg/dL Creatinine 0.9 (0.8-1.3) mg/dL Est Cr Clr Drug Dosing 101.13 mL/min Estimated GFR (MDRD) > 60 (>60) Glucose 280 H (74-106) mg/dL POC Glucose 149 H 242 H (74-106) mg/dL Calcium 7.7 L (8.5-10.1) mg/dL Phosphorus (2.5-4.9) mg/dL Magnesium (1.8-2.4) mg/dL Total Bilirubin (0.2-1.0) mg/dL AST (15-37) U/L ALT (12-78) U/L Alkaline Phosphatase (46-116) U/L Total Protein (6.4-8.2) g/dL Albumin (3.4-5.0) g/dL Globulin (2.3-3.5) g/dL Albumin/Globulin Ratio (1.2-2.2) 02/19/21 02/19/21 02/19/21 Range/Units 10:11 11:00 11:24 WBC (4.5-11.0) K/uL RBC (4.30-5.90) M/uL Hgb (12.0-15.0) g/dL Hct (40.0-54.0) % MCV (80-98) fL MCH (27-31) pg MCHC (32-36) % Plt Count (150-400) K/uL Neut % (Auto) (36-66) % Lymph % (Auto) (24-44) % Dubois % (Auto) (2-6) % Eos % (Auto) (2-4) % Baso % (Auto) (0-1) % Sodium (140-148) mmol/L Potassium 3.1 L (3.6-5.2) mmol/L Chloride (100-108) mmol/L Carbon Dioxide (21-32) mmol/L Anion Gap (5.0-14.0) mmol/L BUN (7-18) mg/dL Creatinine (0.8-1.3) mg/dL Est Cr Clr Drug Dosing mL/min Estimated GFR (MDRD) (>60) Glucose (74-106) mg/dL POC Glucose 270 H 224 H (74-106) mg/dL Calcium (8.5-10.1) mg/dL Phosphorus (2.5-4.9) mg/dL Magnesium (1.8-2.4) mg/dL Total Bilirubin (0.2-1.0) mg/dL AST (15-37) U/L ALT (12-78) U/L Alkaline Phosphatase (46-116) U/L Total Protein (6.4-8.2) g/dL Albumin (3.4-5.0) g/dL Globulin (2.3-3.5) g/dL Albumin/Globulin Ratio (1.2-2.2) 02/19/21 Range/Units 12:02 WBC (4.5-11.0) K/uL RBC (4.30-5.90) M/uL Hgb (12.0-15.0) g/dL Hct (40.0-54.0) % MCV (80-98) fL MCH (27-31) pg MCHC (32-36) % Plt Count (150-400) K/uL Neut % (Auto) (36-66) % Lymph % (Auto) (24-44) % Dubois % (Auto) (2-6) % Eos % (Auto) (2-4) % Baso % (Auto) (0-1) % Sodium (140-148) mmol/L Potassium (3.6-5.2) mmol/L Chloride (100-108) mmol/L Carbon Dioxide (21-32) mmol/L Anion Gap (5.0-14.0) mmol/L BUN (7-18) mg/dL Creatinine (0.8-1.3) mg/dL Est Cr Clr Drug Dosing mL/min Estimated GFR (MDRD) (>60) Glucose (74-106) mg/dL POC Glucose 166 H (74-106) mg/dL Calcium (8.5-10.1) mg/dL Phosphorus (2.5-4.9) mg/dL Magnesium (1.8-2.4) mg/dL Total Bilirubin (0.2-1.0) mg/dL AST (15-37) U/L ALT (12-78) U/L Alkaline Phosphatase (46-116) U/L Total Protein (6.4-8.2) g/dL Albumin (3.4-5.0) g/dL Globulin (2.3-3.5) g/dL Albumin/Globulin Ratio (1.2-2.2) Result Diagrams: 02/19/21 05:15 02/19/21 11:24 Sepsis Event Note - Evaluation Sepsis Screening Result: No Definite Risk - Focused Exam Vital Signs: Vital Signs Temp Pulse Resp BP Pulse Ox 02/19/21 12:00 98 F 22 H 133/64 100 02/19/21 11:00 22 H 125/61 99 02/19/21 10:00 18 136/68 100 02/19/21 09:00 23 H 131/67 99 02/19/21 07:39 97.1 F 26 H 136/67 98 02/19/21 06:00 84 20 134/64 98 02/19/21 05:00 86 16 134/71 98 02/19/21 04:00 99.4 F 89 24 H 135/69 98 02/19/21 03:00 84 24 H 135/66 98 02/19/21 02:00 96 23 H 146/68 H 99 02/19/21 01:00 100 26 H 142/70 H 100 - Problem List Review Problem List Initiated/Reviewed/Updated: Yes - My Orders Last 24 Hours: My Active Orders 02/18/21 Lunch Consistent Carbohydrate Diet [DIET] 02/18/21 13:00 Blood Glucose Check, Bedside [RC] Q1H Consult to Diabetic Nurse Specialist [CONS] Urgent Dextrose 50% in Water 50 ml IVPUSH ASDIRECTED PRN Insulin Regular in 0.9 % NACL [Myxredlin in NS 100 UNIT/100 ML] 100 ml IV ASDIRECTED Magnesium Sulfate/Water [Magnesium Sulfate in Water 2 GM/50 ML] 50 ml IV ONETIME Potassium Chloride [KCL in Water 20 MEQ/100 ML] 20 meq Premix Bag 1 bag IV ASDIRECTED Potassium Chloride [KCL in Water 20 MEQ/100 ML] 20 meq Premix Bag 1 bag IV Q2H Potassium Chloride [Potassium Chloride Solution] 20 meq PO ASDIRECTED PRN Potassium Chloride [Potassium Chloride Solution] 40 meq PO ASDIRECTED PRN Potassium Chloride [Potassium Chloride Solution] 40 meq PO Q2H PRN Sodium Chloride 0.9% [Normal Saline] 2,000 ml IV .CONTINUOUS Sodium Phosphate 60 mmole Sodium Chloride 0.9% [Normal Saline] 250 ml IV ONETIME 02/18/21 13:01 Communication Order [RC] ASDIRECTED Diabetes Education [RC] Click to Edit Diabetes Education [RC] Click to Edit Notify Provider [RC] PRN Vital Signs [RC] Q1H 02/18/21 13:02 Notify Provider Laboratory Res [RC] ASDIRECTED Notify Provider Laboratory Res [RC] ASDIRECTED 02/18/21 13:03 Notify Provider Laboratory Res [RC] ASDIRECTED 02/18/21 13:15 Medication Continuation Instructions [OM.PC] ASDIRECTED Medication Discontinuation Instructions [OM.PC] ASDIRECTED 02/18/21 14:36 Resuscitation Status Routine 02/18/21 14:55 Acetaminophen [TylenoL] 650 mg PO Q4H PRN Docusate Sodium/Sennosides [Senna Plus] 1 tab PO BID PRN Ondansetron [Zofran] 4 mg IV Q4H PRN Sodium Chloride 0.9% [Saline Flush] 10 ml FLUSH ASDIRECTED PRN 02/18/21 14:55 Patient Status [ADT] Routine Ambulate [RC] QID Cardiac Monitoring [RC] Q6H Height and Weight [RC] DAILY Intake and Output [RC] QSHIFT Notify Provider Vital Signs [RC] ASDIRECTED Oxygen Therapy [RC] PRN Up With Assistance [RC] ASDIRECTED Up to Chair [RC] QID Vital Signs [RC] Q4H Peripheral IV Insertion Adult [OM.PC] Routine 02/18/21 16:00 Enoxaparin [Lovenox] 40 mg SUBCUT Q24H 02/18/21 17:24 Heparin Sodium [Heparin Lock Flush 100 Units/ML] 500 units FLUSH ASDIRECTED PRN 02/18/21 20:15 Dextrose 5%-0.45% NaCl [Dextrose 5%-1/2 NS] 1,000 ml IV ASDIRECTED 02/19/21 10:30 Potassium Chloride [KCL in Water 20 MEQ/100 ML] 20 meq Premix Bag 1 bag IV Q2H 02/19/21 10:34 Potassium Chloride [KCL in Water 20 MEQ/100 ML] 20 meq Premix Bag 1 bag IV Q2H 02/19/21 12:53 Dextrose 50% in Water 50 ml IVPUSH ONETIME PRN 02/19/21 13:00 BASIC METABOLIC PANEL,BMP [CHEM] Q4H MAGNESIUM [CHEM] Q6H PHOSPHORUS [CHEM] Q6H 02/19/21 15:00 POTASSIUM,K [CHEM] Q2H 02/19/21 17:00 BASIC METABOLIC PANEL,BMP [CHEM] Q4H 02/19/21 19:00 MAGNESIUM [CHEM] Q6H PHOSPHORUS [CHEM] Q6H POTASSIUM,K [CHEM] Q2H 02/19/21 21:00 BASIC METABOLIC PANEL,BMP [CHEM] Q4H 02/19/21 23:00 POTASSIUM,K [CHEM] Q2H 02/20/21 01:00 BASIC METABOLIC PANEL,BMP [CHEM] Q4H MAGNESIUM [CHEM] Q6H PHOSPHORUS [CHEM] Q6H POTASSIUM,K [CHEM] Q2H 02/20/21 03:00 POTASSIUM,K [CHEM] Q2H 02/20/21 05:00 BASIC METABOLIC PANEL,BMP [CHEM] Q4H CBC WITH AUTO DIFF [HEME] Timed POTASSIUM,K [CHEM] Q2H 02/20/21 07:00 MAGNESIUM [CHEM] Q6H PHOSPHORUS [CHEM] Q6H POTASSIUM,K [CHEM] Q2H 02/20/21 09:00 BASIC METABOLIC PANEL,BMP [CHEM] Q4H POTASSIUM,K [CHEM] Q2H 02/20/21 11:00 POTASSIUM,K [CHEM] Q2H - Plan Plan:: ASSESSMENT AND PLAN DIABETIC KETOACIDOSIS-no prior history of diabetes. No evidence of underlying infection or other precipitating cause. Ketoacidosis has improved significantly since admission but has not resolved. -Ketoacidosis protocol -IV insulin per IV insulin orders -IV fluids per protocol -Electrolyte management per protocol TYPE 1 DIABETES MELLITUS-new diagnosis, glucose levels under much better control on IV insulin -Transition to short and long-acting insulin after ketoacidosis has resolved -Diabetes education for monitoring and insulin management MAINTENANCE ISSUES -DVT prophylaxis; Lovenox 40 mg subcu daily -GI prophylaxis; not indicated -Chaney catheter; not indicated -Nutrition; consistent carbohydrate diet -Nicotine dependence; not required CODE STATUS-FULL CODE ADMISSION STATUS-patient will be admitted to inpatient status, expect at least a 2 night hospital stay for evaluation and management of problems as outlined above. At the time of this admission I do not reasonably expected evaluation and management of this problem will require more than a 96 hour hospital stay. DISPOSITION-anticipate discharge to home after the hospital stay. PRIMARY CARE PROVIDER-currently does not have a primary care provider
[2021-02-19] MEDS: Magnesium Sulfate/Water 50 ML IV PRN (14:02)
[2021-02-19] MEDS ORDERED: Potassium Chloride Riders 40 MEQ in Premix Bag 1 BAG IV ONE (14:45)
[2021-02-19] MEDS: Enoxaparin 40 MG/0.4 ML Syringe SUBCUT SCH (16:10)
[2021-02-19] MEDS ORDERED: Potassium Chloride 20 MEQ Tab.ER PO ONE ×2 (17:53→22:00)
[2021-02-20] MEDS: Potassium Chloride 20 MEQ in Premix Bag 1 BAG IV PRN ×6 (00:58→17:56)
[2021-02-20] MEDS: Dextrose 5%-0.45% NaCl 1,000 ML IV SCH ×3 (02:16→15:29)
--- NOTE | 2021-02-20 09:22 | CR ---
CHEST: Portable 02/18/2021 at 5:11 PM CLINICAL HISTORY:Pain COMPARISON:None FINDINGS: Patient has a left subclavian catheter. Tip is in the superior vena cava atrial junction. Heart size and pulmonary vascular normal. There is some normal patchy density in the left lung base which is likely streaky atelectasis. No infiltrates are seen. Impression: Left subclavian catheter in good position Minimal patchy scarring or atelectasis left lung base
[2021-02-20] MEDS: Insulin Regular in 0.9 % NACL 100 ML IV SCH (09:29)
--- NOTE | 2021-02-20 09:49 | PCM.PN ---
- General Info Date of Service: 02/20/21 Subjective Update: No acute events overnight. Anion gap still elevated and he remains on the IV insulin infusion. Anion gap has been slowly improving. Blood sugars have been stable. No significant abdominal pain or nausea. Patient reports he feels much better today. Tolerating regular diet. He and his mother were asking good questions about diabetes management after he gets out of the hospital. Functional Status: Reports: Pain Controlled, Tolerating Diet - Patient Data Vitals - Most Recent: Last Vital Signs Temp 36.3 C 02/20/21 07:00 Pulse 117 H 02/20/21 09:00 Resp 19 02/20/21 09:00 BP 117/57 L 02/20/21 09:00 Pulse Ox 97 02/20/21 09:00 Weight - Most Recent: 78.92 kg I&O - Last 24 Hours: Intake & Output 02/19/21 02/20/21 02/20/21 22:59 06:59 14:59 Intake Total 3090 2770 200 Output Total 1100 3475 550 Balance 1989 -448 -123 Lab Results Last 24 Hours: Laboratory Results - last 24 hr 02/19/21 02/19/21 02/19/21 Range/Units 09:46 10:11 11:00 WBC (4.5-11.0) K/uL RBC (4.30-5.90) M/uL Hgb (12.0-15.0) g/dL Hct (40.0-54.0) % MCV (80-98) fL MCH (27-31) pg MCHC (32-36) % Plt Count (150-400) K/uL Neut % (Auto) (36-66) % Lymph % (Auto) (24-44) % Barn[place] % (Auto) (2-6) % Eos % (Auto) (2-4) % Baso % (Auto) (0-1) % Sodium 137 L (140-148) mmol/L Potassium 3.0 L (3.6-5.2) mmol/L Chloride 107 (100-108) mmol/L Carbon Dioxide 12 L (21-32) mmol/L Anion Gap 21.0 H (5.0-14.0) mmol/L BUN 9 (7-18) mg/dL Creatinine 0.9 (0.8-1.3) mg/dL Est Cr Clr Drug Dosing 101.13 mL/min Estimated GFR (MDRD) > 60 (>60) Glucose 280 H (74-106) mg/dL POC Glucose 270 H 224 H (74-106) mg/dL Calcium 7.7 L (8.5-10.1) mg/dL Phosphorus (2.5-4.9) mg/dL Magnesium (1.8-2.4) mg/dL 02/19/21 02/19/21 02/19/21 Range/Units 11:24 12:02 12:57 WBC (4.5-11.0) K/uL RBC (4.30-5.90) M/uL Hgb (12.0-15.0) g/dL Hct (40.0-54.0) % MCV (80-98) fL MCH (27-31) pg MCHC (32-36) % Plt Count (150-400) K/uL Neut % (Auto) (36-66) % Lymph % (Auto) (24-44) % [place] % (Auto) (2-6) % Eos % (Auto) (2-4) % Baso % (Auto) (0-1) % Sodium (140-148) mmol/L Potassium 3.1 L (3.6-5.2) mmol/L Chloride (100-108) mmol/L Carbon Dioxide (21-32) mmol/L Anion Gap (5.0-14.0) mmol/L BUN (7-18) mg/dL Creatinine (0.8-1.3) mg/dL Est Cr Clr Drug Dosing mL/min Estimated GFR (MDRD) (>60) Glucose (74-106) mg/dL POC Glucose 166 H 175 H (74-106) mg/dL Calcium (8.5-10.1) mg/dL Phosphorus (2.5-4.9) mg/dL Magnesium (1.8-2.4) mg/dL 02/19/21 02/19/21 02/19/21 Range/Units 13:00 14:06 14:50 WBC (4.5-11.0) K/uL RBC (4.30-5.90) M/uL Hgb (12.0-15.0) g/dL Hct (40.0-54.0) % MCV (80-98) fL MCH (27-31) pg MCHC (32-36) % Plt Count (150-400) K/uL Neut % (Auto) (36-66) % Lymph % (Auto) (24-44) % Barn[place] % (Auto) (2-6) % Eos % (Auto) (2-4) % Baso % (Auto) (0-1) % Sodium 136 L (140-148) mmol/L Potassium 3.2 L (3.6-5.2) mmol/L Chloride 106 (100-108) mmol/L Carbon Dioxide 13 L (21-32) mmol/L Anion Gap 20.2 H (5.0-14.0) mmol/L BUN 9 (7-18) mg/dL Creatinine 0.8 (0.8-1.3) mg/dL Est Cr Clr Drug Dosing 113.77 mL/min Estimated GFR (MDRD) > 60 (>60) Glucose 204 H (74-106) mg/dL POC Glucose 247 H 245 H (74-106) mg/dL Calcium 7.9 L (8.5-10.1) mg/dL Phosphorus 0.7 L (2.5-4.9) mg/dL Magnesium 1.7 L (1.8-2.4) mg/dL 02/19/21 02/19/21 02/19/21 Range/Units 15:14 16:05 17:00 WBC (4.5-11.0) K/uL RBC (4.30-5.90) M/uL Hgb (12.0-15.0) g/dL Hct (40.0-54.0) % MCV (80-98) fL MCH (27-31) pg MCHC (32-36) % Plt Count (150-400) K/uL Neut % (Auto) (36-66) % Lymph % (Auto) (24-44) % Barnwell % (Auto) (2-6) % Eos % (Auto) (2-4) % Baso % (Auto) (0-1) % Sodium 138 L (140-148) mmol/L Potassium 3.0 L 2.8 L* (3.6-5.2) mmol/L Chloride 105 (100-108) mmol/L Carbon Dioxide 14 L (21-32) mmol/L Anion Gap 21.8 H (5.0-14.0) mmol/L BUN 7 (7-18) mg/dL Creatinine 0.8 (0.8-1.3) mg/dL Est Cr Clr Drug Dosing 113.77 mL/min Estimated GFR (MDRD) > 60 (>60) Glucose 215 H (74-106) mg/dL POC Glucose 238 H (74-106) mg/dL Calcium 7.7 L (8.5-10.1) mg/dL Phosphorus (2.5-4.9) mg/dL Magnesium (1.8-2.4) mg/dL 02/19/21 02/19/21 02/19/21 Range/Units 17:08 18:08 19:11 WBC (4.5-11.0) K/uL RBC (4.30-5.90) M/uL Hgb (12.0-15.0) g/dL Hct (40.0-54.0) % MCV (80-98) fL MCH (27-31) pg MCHC (32-36) % Plt Count (150-400) K/uL Neut % (Auto) (36-66) % Lymph % (Auto) (24-44) % Barn[place] % (Auto) (2-6) % Eos % (Auto) (2-4) % Baso % (Auto) (0-1) % Sodium (140-148) mmol/L Potassium 3.0 L (3.6-5.2) mmol/L Chloride (100-108) mmol/L Carbon Dioxide (21-32) mmol/L Anion Gap (5.0-14.0) mmol/L BUN (7-18) mg/dL Creatinine (0.8-1.3) mg/dL Est Cr Clr Drug Dosing mL/min Estimated GFR (MDRD) (>60) Glucose (74-106) mg/dL POC Glucose 214 H 267 H (74-106) mg/dL Calcium (8.5-10.1) mg/dL Phosphorus 3.2 (2.5-4.9) mg/dL Magnesium 2.0 (1.8-2.4) mg/dL 02/19/21 02/19/21 02/19/21 Range/Units 19:21 20:05 20:49 WBC (4.5-11.0) K/uL RBC (4.30-5.90) M/uL Hgb (12.0-15.0) g/dL Hct (40.0-54.0) % MCV (80-98) fL MCH (27-31) pg MCHC (32-36) % Plt Count (150-400) K/uL Neut % (Auto) (36-66) % Lymph % (Auto) (24-44) % [place] % (Auto) (2-6) % Eos % (Auto) (2-4) % Baso % (Auto) (0-1) % Sodium (140-148) mmol/L Potassium (3.6-5.2) mmol/L Chloride (100-108) mmol/L Carbon Dioxide (21-32) mmol/L Anion Gap (5.0-14.0) mmol/L BUN (7-18) mg/dL Creatinine (0.8-1.3) mg/dL Est Cr Clr Drug Dosing mL/min Estimated GFR (MDRD) (>60) Glucose (74-106) mg/dL POC Glucose 255 H 243 H 201 H (74-106) mg/dL Calcium (8.5-10.1) mg/dL Phosphorus (2.5-4.9) mg/dL Magnesium (1.8-2.4) mg/dL 02/19/21 02/19/21 02/19/21 Range/Units 21:00 22:07 23:00 WBC (4.5-11.0) K/uL RBC (4.30-5.90) M/uL Hgb (12.0-15.0) g/dL Hct (40.0-54.0) % MCV (80-98) fL MCH (27-31) pg MCHC (32-36) % Plt Count (150-400) K/uL Neut % (Auto) (36-66) % Lymph % (Auto) (24-44) % Barn[place] % (Auto) (2-6) % Eos % (Auto) (2-4) % Baso % (Auto) (0-1) % Sodium 137 L (140-148) mmol/L Potassium 3.2 L 3.4 L (3.6-5.2) mmol/L Chloride 106 (100-108) mmol/L Carbon Dioxide 16 L (21-32) mmol/L Anion Gap 18.2 H (5.0-14.0) mmol/L BUN 7 (7-18) mg/dL Creatinine 0.7 L (0.8-1.3) mg/dL Est Cr Clr Drug Dosing 130.02 mL/min Estimated GFR (MDRD) > 60 (>60) Glucose 216 H (74-106) mg/dL POC Glucose 170 H (74-106) mg/dL Calcium 7.6 L (8.5-10.1) mg/dL Phosphorus (2.5-4.9) mg/dL Magnesium (1.8-2.4) mg/dL 02/19/21 02/20/21 02/20/21 Range/Units 23:04 00:03 01:13 WBC (4.5-11.0) K/uL RBC (4.30-5.90) M/uL Hgb (12.0-15.0) g/dL Hct (40.0-54.0) % MCV (80-98) fL MCH (27-31) pg MCHC (32-36) % Plt Count (150-400) K/uL Neut % (Auto) (36-66) % Lymph % (Auto) (24-44) % [place] % (Auto) (2-6) % Eos % (Auto) (2-4) % Baso % (Auto) (0-1) % Sodium (140-148) mmol/L Potassium (3.6-5.2) mmol/L Chloride (100-108) mmol/L Carbon Dioxide (21-32) mmol/L Anion Gap (5.0-14.0) mmol/L BUN (7-18) mg/dL Creatinine (0.8-1.3) mg/dL Est Cr Clr Drug Dosing mL/min Estimated GFR (MDRD) (>60) Glucose (74-106) mg/dL POC Glucose 183 H 184 H 164 H (74-106) mg/dL Calcium (8.5-10.1) mg/dL Phosphorus (2.5-4.9) mg/dL Magnesium (1.8-2.4) mg/dL 02/20/21 02/20/21 02/20/21 Range/Units 01:15 02:08 02:50 WBC (4.5-11.0) K/uL RBC (4.30-5.90) M/uL Hgb (12.0-15.0) g/dL Hct (40.0-54.0) % MCV (80-98) fL MCH (27-31) pg MCHC (32-36) % Plt Count (150-400) K/uL Neut % (Auto) (36-66) % Lymph % (Auto) (24-44) % [place] % (Auto) (2-6) % Eos % (Auto) (2-4) % Baso % (Auto) (0-1) % Sodium 138 L (140-148) mmol/L Potassium 3.4 L 3.4 L (3.6-5.2) mmol/L Chloride 107 (100-108) mmol/L Carbon Dioxide 16 L (21-32) mmol/L Anion Gap 18.4 H (5.0-14.0) mmol/L BUN 5 L (7-18) mg/dL Creatinine 0.7 L (0.8-1.3) mg/dL Est Cr Clr Drug Dosing 130.02 mL/min Estimated GFR (MDRD) > 60 (>60) Glucose 177 H (74-106) mg/dL POC Glucose 201 H (74-106) mg/dL Calcium 7.8 L (8.5-10.1) mg/dL Phosphorus 1.7 L (2.5-4.9) mg/dL Magnesium 1.9 (1.8-2.4) mg/dL 02/20/21 02/20/21 02/20/21 Range/Units 02:57 04:04 05:16 WBC (4.5-11.0) K/uL RBC (4.30-5.90) M/uL Hgb (12.0-15.0) g/dL Hct (40.0-54.0) % MCV (80-98) fL MCH (27-31) pg MCHC (32-36) % Plt Count (150-400) K/uL Neut % (Auto) (36-66) % Lymph % (Auto) (24-44) % [place] % (Auto) (2-6) % Eos % (Auto) (2-4) % Baso % (Auto) (0-1) % Sodium (140-148) mmol/L Potassium (3.6-5.2) mmol/L Chloride (100-108) mmol/L Carbon Dioxide (21-32) mmol/L Anion Gap (5.0-14.0) mmol/L BUN (7-18) mg/dL Creatinine (0.8-1.3) mg/dL Est Cr Clr Drug Dosing mL/min Estimated GFR (MDRD) (>60) Glucose (74-106) mg/dL POC Glucose 174 H 165 H 164 H (74-106) mg/dL Calcium (8.5-10.1) mg/dL Phosphorus (2.5-4.9) mg/dL Magnesium (1.8-2.4) mg/dL 02/20/21 02/20/21 02/20/21 Range/Units 05:37 05:37 06:06 WBC 8.2 (4.5-11.0) K/uL RBC 3.61 L (4.30-5.90) M/uL Hgb 10.7 L (12.0-15.0) g/dL Hct 29.1 L (40.0-54.0) % MCV 81 (80-98) fL MCH 30 (27-31) pg MCHC 37 H (32-36) % Plt Count 143 L (150-400) K/uL Neut % (Auto) 67.0 H (36-66) % Lymph % (Auto) 21.0 L (24-44) % [place] % (Auto) 11.0 H (2-6) % Eos % (Auto) 1.0 L (2-4) % Baso % (Auto) 0.0 (0-1) % Sodium 137 L (140-148) mmol/L Potassium 3.5 L (3.6-5.2) mmol/L Chloride 105 (100-108) mmol/L Carbon Dioxide 17 L (21-32) mmol/L Anion Gap 18.5 H (5.0-14.0) mmol/L BUN (7-18) mg/dL Creatinine 0.7 L (0.8-1.3) mg/dL Est Cr Clr Drug Dosing 130.02 mL/min Estimated GFR (MDRD) > 60 (>60) Glucose 164 H (74-106) mg/dL POC Glucose 173 H (74-106) mg/dL Calcium 8.1 L (8.5-10.1) mg/dL Phosphorus (2.5-4.9) mg/dL Magnesium (1.8-2.4) mg/dL 02/20/21 02/20/21 02/20/21 Range/Units 06:57 06:59 08:50 WBC (4.5-11.0) K/uL RBC (4.30-5.90) M/uL Hgb (12.0-15.0) g/dL Hct (40.0-54.0) % MCV (80-98) fL MCH (27-31) pg MCHC (32-36) % Plt Count (150-400) K/uL Neut % (Auto) (36-66) % Lymph % (Auto) (24-44) % [place] % (Auto) (2-6) % Eos % (Auto) (2-4) % Baso % (Auto) (0-1) % Sodium (140-148) mmol/L Potassium 3.7 (3.6-5.2) mmol/L Chloride (100-108) mmol/L Carbon Dioxide (21-32) mmol/L Anion Gap (5.0-14.0) mmol/L BUN (7-18) mg/dL Creatinine (0.8-1.3) mg/dL Est Cr Clr Drug Dosing mL/min Estimated GFR (MDRD) (>60) Glucose (74-106) mg/dL POC Glucose 158 H 281 H (74-106) mg/dL Calcium (8.5-10.1) mg/dL Phosphorus 1.4 L (2.5-4.9) mg/dL Magnesium 1.8 (1.8-2.4) mg/dL 02/20/21 Range/Units 09:04 WBC (4.5-11.0) K/uL RBC (4.30-5.90) M/uL Hgb (12.0-15.0) g/dL Hct (40.0-54.0) % MCV (80-98) fL MCH (27-31) pg MCHC (32-36) % Plt Count (150-400) K/uL Neut % (Auto) (36-66) % Lymph % (Auto) (24-44) % [place] % (Auto) (2-6) % Eos % (Auto) (2-4) % Baso % (Auto) (0-1) % Sodium 135 L (140-148) mmol/L Potassium 3.6 (3.6-5.2) mmol/L Chloride 104 (100-108) mmol/L Carbon Dioxide 17 L (21-32) mmol/L Anion Gap 17.6 H (5.0-14.0) mmol/L BUN (7-18) mg/dL Creatinine 0.8 (0.8-1.3) mg/dL Est Cr Clr Drug Dosing 113.77 mL/min Estimated GFR (MDRD) > 60 (>60) Glucose 303 H (74-106) mg/dL POC Glucose (74-106) mg/dL Calcium 8.1 L (8.5-10.1) mg/dL Phosphorus (2.5-4.9) mg/dL Magnesium (1.8-2.4) mg/dL Med Orders - Current: Current Medications Acetaminophen (Acetaminophen 325 Mg Tab) 650 mg PO Q4H PRN PRN Reason: Pain (Mild 1-3)/fever Dextrose/Water (50% Dextrose In Water 50 Ml Syringe) 50 ml IVPUSH ONETIME PRN PRN Reason: Blood Glucose Enoxaparin Sodium (Enoxaparin 40 Mg/0.4 Ml Syringe) 40 mg SUBCUT Q24H ADIA Last Admin: 02/19/21 16:10 Dose: 40 mg Documented by: Heparin Sodium (Porcine) (Heparin Sodium 100 Units/Ml 5 Ml Syringe) 500 units FLUSH ASDIRECTED PRN PRN Reason: Keep Vein Open Last Admin: 02/19/21 18:43 Dose: 500 units Documented by: Sodium Chloride (Normal Saline) 2,000 mls @ 500 mls/hr IV .CONTINUOUS PRN PRN Reason: Blood Glucose Last Admin: 02/18/21 15:16 Dose: 500 mls/hr Documented by: Potassium Chloride 20 meq/ (Premix) 100 mls @ 50 mls/hr IV ASDIRECTED PRN PRN Reason: K+ 3.5-3.9 Last Admin: 02/20/21 09:42 Dose: 50 mls/hr Documented by: Potassium Chloride 20 meq/ (Premix) 100 mls @ 50 mls/hr IV Q2H PRN PRN Reason: Hypokalemia 2.5-2.9 Last Admin: 02/19/21 22:55 Dose: 50 mls/hr Documented by: Insulin Regular in 0.9 % NACL (Myxredlin In Ns 100 Unit/100 Ml) 100 mls @ 7.893 mls/hr IV ASDIRECTED ADIA; Protocol Last Admin: 02/20/21 09:29 Dose: 0.08 units/kg/hr, 6 mls/hr Documented by: Dextrose/Sodium Chloride (Dextrose 5%-1/2 Ns) 1,000 mls @ 150 mls/hr IV ASDIRECTED ADIA Last Admin: 02/20/21 09:07 Dose: 150 mls/hr Documented by: Ondansetron HCl (Ondansetron 4 Mg/2 Ml Sdv) 4 mg IV Q4H PRN PRN Reason: Nausea/Vomiting Potassium Chloride (Potassium Chloride 10% 20 Meq/15 Ml Soln 15 Ml Ud Cup) 20 meq PO ASDIRECTED PRN PRN Reason: Hypokalemia Potassium Chloride (Potassium Chloride 10% 20 Meq/15 Ml Soln 15 Ml Ud Cup) 40 meq PO ASDIRECTED PRN PRN Reason: Hypokalemia Last Admin: 02/19/21 02:41 Dose: 40 meq Documented by: Potassium Chloride (Potassium Chloride 10% 20 Meq/15 Ml Soln 15 Ml Ud Cup) 40 meq PO Q2H PRN PRN Reason: Hypokalemia Senna/Docusate Sodium (Docusate Sodium/Sennosides 50-8.6 Mg Tab) 1 tab PO BID PRN PRN Reason: Constipation Sodium Chloride (Sodium Chloride 0.9% 10 Ml Syringe) 10 ml FLUSH ASDIRECTED PRN PRN Reason: Keep Vein Open Discontinued Medications Acetaminophen (Acetaminophen 500 Mg Tab) 1,000 mg PO ONETIME ONE Stop: 02/18/21 11:50 Heparin Sodium (Porcine) (Heparin Sodium 100 Units/Ml 5 Ml Syringe) Confirm Administered Dose 500 units .ROUTE .STK-MED ONE Stop: 02/18/21 16:14 Last Admin: 02/18/21 18:17 Dose: Not Given Documented by: Lactated Ringer's (Ringers, Lactated) 1,000 mls @ 1,000 mls/hr IV BOLUS ONE Stop: 02/18/21 09:51 Last Admin: 02/18/21 09:51 Dose: 1,000 mls/hr Documented by: Insulin Regular in 0.9 % NACL (Myxredlin In Ns 100 Unit/100 Ml) 100 unit in 100 mls @ 7.893 mls/hr IV ASDIRECTED [facility] Last Admin: 02/18/21 09:53 Dose: 0.1 units/kg/hr, 7.893 mls/hr Documented by: Sodium Chloride (Normal Saline) 1,000 mls @ 1,000 mls/hr IV .BOLUS ONE Stop: 02/18/21 12:49 Last Admin: 02/18/21 12:58 Dose: 1,000 mls/hr Documented by: Potassium Chloride 20 meq/Lidocaine HCl 2 ml/ Sodium Chloride 112 mls @ 56 mls/hr IV ONETIME ONE Stop: 02/18/21 14:44 Last Admin: 02/18/21 13:01 Dose: 56 mls/hr Documented by: Potassium Chloride 20 meq/ (Premix) 100 mls @ 50 mls/hr IV Q2H PRN PRN Reason: Hypokalemia 3 - 3.4 Last Admin: 02/19/21 08:02 Dose: 50 mls/hr Documented by: Magnesium Sulfate (Magnesium Sulfate In Water 2 Gm/50 Ml) 50 mls @ 25 mls/hr IV ONETIME PRN PRN Reason: low magnesium Last Admin: 02/19/21 14:02 Dose: 25 mls/hr Documented by: Sodium Phosphate 60 mmole/ (Sodium Chloride) 270 mls @ 62.5 mls/hr IV ONETIME PRN PRN Reason: Low phophorus Last Admin: 02/19/21 14:36 Dose: 62.5 mls/hr Documented by: Potassium Phosphate 15 mmol/ (Premix) 250 mls @ 125 mls/hr IV ONETIME ONE Stop: 02/18/21 22:40 Last Admin: 02/18/21 21:07 Dose: 125 mls/hr Documented by: Premix (Premix Bag) Confirm Administered Dose 3 mls @ as directed .ROUTE .STK- MED ONE Stop: 02/18/21 20:53 Last Admin: 02/18/21 21:12 Dose: Not Given Documented by: Potassium Phosphate 15 mmol/ (Premix) 250 mls @ 125 mls/hr IV ONETIME ONE Stop: 02/19/21 00:59 Last Admin: 02/18/21 23:07 Dose: 125 mls/hr Documented by: Potassium Phosphate 15 mmol/ (Premix) 250 mls @ 125 mls/hr IV ONETIME ONE Stop: 02/19/21 02:59 Last Admin: 02/19/21 01:10 Dose: 125 mls/hr Documented by: Potassium Phosphate 15 mmol/ (Premix) 250 mls @ 125 mls/hr IV ONETIME ONE Stop: 02/19/21 04:58 Last Admin: 02/19/21 03:13 Dose: 125 mls/hr Documented by: Potassium Chloride 20 meq/ (Premix) 100 mls @ 50 mls/hr IV Q2H ADIA Stop: 02/19/21 14:29 Last Admin: 02/19/21 12:39 Dose: 50 mls/hr Documented by: Potassium Chloride 20 meq/ (Premix) 100 mls @ 50 mls/hr IV Q2H PRN PRN Reason: Hypokalemia 3 - 3.4 Last Admin: 02/20/21 00:58 Dose: 50 mls/hr Documented by: Potassium Chloride 40 meq/ (Premix) 100 mls @ 25 mls/hr IV ONETIME ONE Stop: 02/19/21 18:44 Last Admin: 02/19/21 14:41 Dose: 25 mls/hr Documented by: Potassium Chloride (Potassium Chloride 20 Meq Tab.Er) 40 meq PO ONETIME ONE Stop: 02/18/21 11:52 Last Admin: 02/18/21 13:05 Dose: 40 meq Documented by: Potassium Chloride (Potassium Chloride 20 Meq Tab.Er) 40 meq PO Q2H ADIA Stop: 02/19/21 10:16 Last Admin: 02/19/21 10:08 Dose: 40 meq Documented by: Potassium Chloride (Potassium Chloride 20 Meq Tab.Er) 40 meq PO ONETIME ONE Stop: 02/19/21 17:54 Last Admin: 02/19/21 18:01 Dose: 40 meq Documented by: Potassium Chloride (Potassium Chloride 20 Meq Tab.Er) 40 meq PO ONETIME ONE Stop: 02/19/21 22:01 Last Admin: 02/19/21 22:05 Dose: 40 meq Documented by: Sodium Chloride (Sodium Chloride 0.9% 10 Ml Syringe) 10 ml FLUSH ASDIRECTED PRN PRN Reason: Keep Vein Open Last Admin: 02/18/21 09:52 Dose: 10 ml Documented by: - Exam Quality Assessment: No: Supplemental Oxygen General: Alert, Oriented, Cooperative, No Acute Distress Lungs: Normal Respiratory Effort. No: Wheezing Cardiovascular: Regular Rate, Regular Rhythm GI/Abdominal Exam: Soft, No Distention Extremities: No Pedal Edema. No: Increased Warmth Skin: Warm, Dry Psy/Mental Status: Alert, Normal Affect - Patient Data Lab Results Last 24 hrs: Laboratory Results - last 24 hr 02/19/21 02/19/21 02/19/21 Range/Units 09:46 10:11 11:00 WBC (4.5-11.0) K/uL RBC (4.30-5.90) M/uL Hgb (12.0-15.0) g/dL Hct (40.0-54.0) % MCV (80-98) fL MCH (27-31) pg MCHC (32-36) % Plt Count (150-400) K/uL Neut % (Auto) (36-66) % Lymph % (Auto) (24-44) % [place] % (Auto) (2-6) % Eos % (Auto) (2-4) % Baso % (Auto) (0-1) % Sodium 137 L (140-148) mmol/L Potassium 3.0 L (3.6-5.2) mmol/L Chloride 107 (100-108) mmol/L Carbon Dioxide 12 L (21-32) mmol/L Anion Gap 21.0 H (5.0-14.0) mmol/L BUN 9 (7-18) mg/dL Creatinine 0.9 (0.8-1.3) mg/dL Est Cr Clr Drug Dosing 101.13 mL/min Estimated GFR (MDRD) > 60 (>60) Glucose 280 H (74-106) mg/dL POC Glucose 270 H 224 H (74-106) mg/dL Calcium 7.7 L (8.5-10.1) mg/dL Phosphorus (2.5-4.9) mg/dL Magnesium (1.8-2.4) mg/dL 02/19/21 02/19/21 02/19/21 Range/Units 11:24 12:02 12:57 WBC (4.5-11.0) K/uL RBC (4.30-5.90) M/uL Hgb (12.0-15.0) g/dL Hct (40.0-54.0) % MCV (80-98) fL MCH (27-31) pg MCHC (32-36) % Plt Count (150-400) K/uL Neut % (Auto) (36-66) % Lymph % (Auto) (24-44) % [place] % (Auto) (2-6) % Eos % (Auto) (2-4) % Baso % (Auto) (0-1) % Sodium (140-148) mmol/L Potassium 3.1 L (3.6-5.2) mmol/L Chloride (100-108) mmol/L Carbon Dioxide (21-32) mmol/L Anion Gap (5.0-14.0) mmol/L BUN (7-18) mg/dL Creatinine (0.8-1.3) mg/dL Est Cr Clr Drug Dosing mL/min Estimated GFR (MDRD) (>60) Glucose (74-106) mg/dL POC Glucose 166 H 175 H (74-106) mg/dL Calcium (8.5-10.1) mg/dL Phosphorus (2.5-4.9) mg/dL Magnesium (1.8-2.4) mg/dL 02/19/21 02/19/21 02/19/21 Range/Units 13:00 14:06 14:50 WBC (4.5-11.0) K/uL RBC (4.30-5.90) M/uL Hgb (12.0-15.0) g/dL Hct (40.0-54.0) % MCV (80-98) fL MCH (27-31) pg MCHC (32-36) % Plt Count (150-400) K/uL Neut % (Auto) (36-66) % Lymph % (Auto) (24-44) % [place] % (Auto) (2-6) % Eos % (Auto) (2-4) % Baso % (Auto) (0-1) % Sodium 136 L (140-148) mmol/L Potassium 3.2 L (3.6-5.2) mmol/L Chloride 106 (100-108) mmol/L Carbon Dioxide 13 L (21-32) mmol/L Anion Gap 20.2 H (5.0-14.0) mmol/L BUN 9 (7-18) mg/dL Creatinine 0.8 (0.8-1.3) mg/dL Est Cr Clr Drug Dosing 113.77 mL/min Estimated GFR (MDRD) > 60 (>60) Glucose 204 H (74-106) mg/dL POC Glucose 247 H 245 H (74-106) mg/dL Calcium 7.9 L (8.5-10.1) mg/dL Phosphorus 0.7 L (2.5-4.9) mg/dL Magnesium 1.7 L (1.8-2.4) mg/dL 02/19/21 02/19/21 02/19/21 Range/Units 15:14 16:05 17:00 WBC (4.5-11.0) K/uL RBC (4.30-5.90) M/uL Hgb (12.0-15.0) g/dL Hct (40.0-54.0) % MCV (80-98) fL MCH (27-31) pg MCHC (32-36) % Plt Count (150-400) K/uL Neut % (Auto) (36-66) % Lymph % (Auto) (24-44) % [place] % (Auto) (2-6) % Eos % (Auto) (2-4) % Baso % (Auto) (0-1) % Sodium 138 L (140-148) mmol/L Potassium 3.0 L 2.8 L* (3.6-5.2) mmol/L Chloride 105 (100-108) mmol/L Carbon Dioxide 14 L (21-32) mmol/L Anion Gap 21.8 H (5.0-14.0) mmol/L BUN 7 (7-18) mg/dL Creatinine 0.8 (0.8-1.3) mg/dL Est Cr Clr Drug Dosing 113.77 mL/min Estimated GFR (MDRD) > 60 (>60) Glucose 215 H (74-106) mg/dL POC Glucose 238 H (74-106) mg/dL Calcium 7.7 L (8.5-10.1) mg/dL Phosphorus (2.5-4.9) mg/dL Magnesium (1.8-2.4) mg/dL 02/19/21 02/19/21 02/19/21 Range/Units 17:08 18:08 19:11 WBC (4.5-11.0) K/uL RBC (4.30-5.90) M/uL Hgb (12.0-15.0) g/dL Hct (40.0-54.0) % MCV (80-98) fL MCH (27-31) pg MCHC (32-36) % Plt Count (150-400) K/uL Neut % (Auto) (36-66) % Lymph % (Auto) (24-44) % [place] % (Auto) (2-6) % Eos % (Auto) (2-4) % Baso % (Auto) (0-1) % Sodium (140-148) mmol/L Potassium 3.0 L (3.6-5.2) mmol/L Chloride (100-108) mmol/L Carbon Dioxide (21-32) mmol/L Anion Gap (5.0-14.0) mmol/L BUN (7-18) mg/dL Creatinine (0.8-1.3) mg/dL Est Cr Clr Drug Dosing mL/min Estimated GFR (MDRD) (>60) Glucose (74-106) mg/dL POC Glucose 214 H 267 H (74-106) mg/dL Calcium (8.5-10.1) mg/dL Phosphorus 3.2 (2.5-4.9) mg/dL Magnesium 2.0 (1.8-2.4) mg/dL 02/19/21 02/19/21 02/19/21 Range/Units 19:21 20:05 20:49 WBC (4.5-11.0) K/uL RBC (4.30-5.90) M/uL Hgb (12.0-15.0) g/dL Hct (40.0-54.0) % MCV (80-98) fL MCH (27-31) pg MCHC (32-36) % Plt Count (150-400) K/uL Neut % (Auto) (36-66) % Lymph % (Auto) (24-44) % [place] % (Auto) (2-6) % Eos % (Auto) (2-4) % Baso % (Auto) (0-1) % Sodium (140-148) mmol/L Potassium (3.6-5.2) mmol/L Chloride (100-108) mmol/L Carbon Dioxide (21-32) mmol/L Anion Gap (5.0-14.0) mmol/L BUN (7-18) mg/dL Creatinine (0.8-1.3) mg/dL Est Cr Clr Drug Dosing mL/min Estimated GFR (MDRD) (>60) Glucose (74-106) mg/dL POC Glucose 255 H 243 H 201 H (74-106) mg/dL Calcium (8.5-10.1) mg/dL Phosphorus (2.5-4.9) mg/dL Magnesium (1.8-2.4) mg/dL 02/19/21 02/19/21 02/19/21 Range/Units 21:00 22:07 23:00 WBC (4.5-11.0) K/uL RBC (4.30-5.90) M/uL Hgb (12.0-15.0) g/dL Hct (40.0-54.0) % MCV (80-98) fL MCH (27-31) pg MCHC (32-36) % Plt Count (150-400) K/uL Neut % (Auto) (36-66) % Lymph % (Auto) (24-44) % [place] % (Auto) (2-6) % Eos % (Auto) (2-4) % Baso % (Auto) (0-1) % Sodium 137 L (140-148) mmol/L Potassium 3.2 L 3.4 L (3.6-5.2) mmol/L Chloride 106 (100-108) mmol/L Carbon Dioxide 16 L (21-32) mmol/L Anion Gap 18.2 H (5.0-14.0) mmol/L BUN 7 (7-18) mg/dL Creatinine 0.7 L (0.8-1.3) mg/dL Est Cr Clr Drug Dosing 130.02 mL/min Estimated GFR (MDRD) > 60 (>60) Glucose 216 H (74-106) mg/dL POC Glucose 170 H (74-106) mg/dL Calcium 7.6 L (8.5-10.1) mg/dL Phosphorus (2.5-4.9) mg/dL Magnesium (1.8-2.4) mg/dL 02/19/21 02/20/21 02/20/21 Range/Units 23:04 00:03 01:13 WBC (4.5-11.0) K/uL RBC (4.30-5.90) M/uL Hgb (12.0-15.0) g/dL Hct (40.0-54.0) % MCV (80-98) fL MCH (27-31) pg MCHC (32-36) % Plt Count (150-400) K/uL Neut % (Auto) (36-66) % Lymph % (Auto) (24-44) % [place] % (Auto) (2-6) % Eos % (Auto) (2-4) % Baso % (Auto) (0-1) % Sodium (140-148) mmol/L Potassium (3.6-5.2) mmol/L Chloride (100-108) mmol/L Carbon Dioxide (21-32) mmol/L Anion Gap (5.0-14.0) mmol/L BUN (7-18) mg/dL Creatinine (0.8-1.3) mg/dL Est Cr Clr Drug Dosing mL/min Estimated GFR (MDRD) (>60) Glucose (74-106) mg/dL POC Glucose 183 H 184 H 164 H (74-106) mg/dL Calcium (8.5-10.1) mg/dL Phosphorus (2.5-4.9) mg/dL Magnesium (1.8-2.4) mg/dL 02/20/21 02/20/21 02/20/21 Range/Units 01:15 02:08 02:50 WBC (4.5-11.0) K/uL RBC (4.30-5.90) M/uL Hgb (12.0-15.0) g/dL Hct (40.0-54.0) % MCV (80-98) fL MCH (27-31) pg MCHC (32-36) % Plt Count (150-400) K/uL Neut % (Auto) (36-66) % Lymph % (Auto) (24-44) % [place] % (Auto) (2-6) % Eos % (Auto) (2-4) % Baso % (Auto) (0-1) % Sodium 138 L (140-148) mmol/L Potassium 3.4 L 3.4 L (3.6-5.2) mmol/L Chloride 107 (100-108) mmol/L Carbon Dioxide 16 L (21-32) mmol/L Anion Gap 18.4 H (5.0-14.0) mmol/L BUN 5 L (7-18) mg/dL Creatinine 0.7 L (0.8-1.3) mg/dL Est Cr Clr Drug Dosing 130.02 mL/min Estimated GFR (MDRD) > 60 (>60) Glucose 177 H (74-106) mg/dL POC Glucose 201 H (74-106) mg/dL Calcium 7.8 L (8.5-10.1) mg/dL Phosphorus 1.7 L (2.5-4.9) mg/dL Magnesium 1.9 (1.8-2.4) mg/dL 02/20/21 02/20/21 02/20/21 Range/Units 02:57 04:04 05:16 WBC (4.5-11.0) K/uL RBC (4.30-5.90) M/uL Hgb (12.0-15.0) g/dL Hct (40.0-54.0) % MCV (80-98) fL MCH (27-31) pg MCHC (32-36) % Plt Count (150-400) K/uL Neut % (Auto) (36-66) % Lymph % (Auto) (24-44) % [place] % (Auto) (2-6) % Eos % (Auto) (2-4) % Baso % (Auto) (0-1) % Sodium (140-148) mmol/L Potassium (3.6-5.2) mmol/L Chloride (100-108) mmol/L Carbon Dioxide (21-32) mmol/L Anion Gap (5.0-14.0) mmol/L BUN (7-18) mg/dL Creatinine (0.8-1.3) mg/dL Est Cr Clr Drug Dosing mL/min Estimated GFR (MDRD) (>60) Glucose (74-106) mg/dL POC Glucose 174 H 165 H 164 H (74-106) mg/dL Calcium (8.5-10.1) mg/dL Phosphorus (2.5-4.9) mg/dL Magnesium (1.8-2.4) mg/dL 02/20/21 02/20/21 02/20/21 Range/Units 05:37 05:37 06:06 WBC 8.2 (4.5-11.0) K/uL RBC 3.61 L (4.30-5.90) M/uL Hgb 10.7 L (12.0-15.0) g/dL Hct 29.1 L (40.0-54.0) % MCV 81 (80-98) fL MCH 30 (27-31) pg MCHC 37 H (32-36) % Plt Count 143 L (150-400) K/uL Neut % (Auto) 67.0 H (36-66) % Lymph % (Auto) 21.0 L (24-44) % [place] % (Auto) 11.0 H (2-6) % Eos % (Auto) 1.0 L (2-4) % Baso % (Auto) 0.0 (0-1) % Sodium 137 L (140-148) mmol/L Potassium 3.5 L (3.6-5.2) mmol/L Chloride 105 (100-108) mmol/L Carbon Dioxide 17 L (21-32) mmol/L Anion Gap 18.5 H (5.0-14.0) mmol/L BUN (7-18) mg/dL Creatinine 0.7 L (0.8-1.3) mg/dL Est Cr Clr Drug Dosing 130.02 mL/min Estimated GFR (MDRD) > 60 (>60) Glucose 164 H (74-106) mg/dL POC Glucose 173 H (74-106) mg/dL Calcium 8.1 L (8.5-10.1) mg/dL Phosphorus (2.5-4.9) mg/dL Magnesium (1.8-2.4) mg/dL 02/20/21 02/20/21 02/20/21 Range/Units 06:57 06:59 08:50 WBC (4.5-11.0) K/uL RBC (4.30-5.90) M/uL Hgb (12.0-15.0) g/dL Hct (40.0-54.0) % MCV (80-98) fL MCH (27-31) pg MCHC (32-36) % Plt Count (150-400) K/uL Neut % (Auto) (36-66) % Lymph % (Auto) (24-44) % [place] % (Auto) (2-6) % Eos % (Auto) (2-4) % Baso % (Auto) (0-1) % Sodium (140-148) mmol/L Potassium 3.7 (3.6-5.2) mmol/L Chloride (100-108) mmol/L Carbon Dioxide (21-32) mmol/L Anion Gap (5.0-14.0) mmol/L BUN (7-18) mg/dL Creatinine (0.8-1.3) mg/dL Est Cr Clr Drug Dosing mL/min Estimated GFR (MDRD) (>60) Glucose (74-106) mg/dL POC Glucose 158 H 281 H (74-106) mg/dL Calcium (8.5-10.1) mg/dL Phosphorus 1.4 L (2.5-4.9) mg/dL Magnesium 1.8 (1.8-2.4) mg/dL 02/20/21 Range/Units 09:04 WBC (4.5-11.0) K/uL RBC (4.30-5.90) M/uL Hgb (12.0-15.0) g/dL Hct (40.0-54.0) % MCV (80-98) fL MCH (27-31) pg MCHC (32-36) % Plt Count (150-400) K/uL Neut % (Auto) (36-66) % Lymph % (Auto) (24-44) % [place] % (Auto) (2-6) % Eos % (Auto) (2-4) % Baso % (Auto) (0-1) % Sodium 135 L (140-148) mmol/L Potassium 3.6 (3.6-5.2) mmol/L Chloride 104 (100-108) mmol/L Carbon Dioxide 17 L (21-32) mmol/L Anion Gap 17.6 H (5.0-14.0) mmol/L BUN (7-18) mg/dL Creatinine 0.8 (0.8-1.3) mg/dL Est Cr Clr Drug Dosing 113.77 mL/min Estimated GFR (MDRD) > 60 (>60) Glucose 303 H (74-106) mg/dL POC Glucose (74-106) mg/dL Calcium 8.1 L (8.5-10.1) mg/dL Phosphorus (2.5-4.9) mg/dL Magnesium (1.8-2.4) mg/dL Result Diagrams: 02/20/21 05:37 02/20/21 13:02 Sepsis Event Note - Evaluation Sepsis Screening Result: No Definite Risk - Focused Exam Vital Signs: Vital Signs Temp Pulse Resp BP Pulse Ox 02/20/21 09:00 117 H 19 117/57 L 97 02/20/21 08:00 104 H 21 H 132/73 97 02/20/21 07:00 36.3 C 91 19 136/77 98 02/20/21 06:00 89 16 140/82 98 02/20/21 05:00 86 18 142/74 H 98 02/20/21 04:00 36.7 C 86 16 132/71 98 02/20/21 03:00 87 17 140/78 97 02/20/21 02:00 88 18 146/83 H 97 02/20/21 01:00 81 20 139/80 98 02/20/21 00:00 36.5 C 87 22 H 143/74 H 100 02/19/21 23:00 77 21 H 146/71 H 98 02/19/21 22:00 82 21 H 143/73 H 98 - Problem List Review Problem List Initiated/Reviewed/Updated: Yes - My Orders Last 24 Hours: My Active Orders 02/20/21 13:00 BASIC METABOLIC PANEL,BMP [CHEM] Timed 02/21/21 05:00 BASIC METABOLIC PANEL,BMP [CHEM] Timed - Plan Plan:: ASSESSMENT AND PLAN DIABETIC KETOACIDOSIS-no prior history of diabetes. No evidence of underlying infection or other precipitating cause. Ketoacidosis has improved significantly since admission but has not quite resolved. -IV insulin per protocol -Continue IV fluids with dextrose -Transition to subcutaneous insulin once anion gap has normalized TYPE 1 DIABETES MELLITUS-new diagnosis, glucose levels under much better control on IV insulin. -Transition to short and long-acting insulin after ketoacidosis has resolved -Diabetes education for monitoring and insulin management Acute kidney injury-secondary to DKA. Creatinine has normalized with management as above. MAINTENANCE ISSUES -DVT prophylaxis; Lovenox 40 mg subcu daily -GI prophylaxis; not indicated -Chaney catheter; not indicated -Nutrition; consistent carbohydrate diet DISPOSITION-anticipate discharge to home after the hospital stay. Issac Khanna MD
[2021-02-20] MEDS: Potassium Chloride 10% 20 MEQ/15 ML Soln 15 ML UD Cup PO PRN ×2 (10:38→17:58)
[2021-02-20] MEDS: Sodium Chloride 0.9% 2,000 ML IV PRN (15:19)
[2021-02-20] MEDS: Enoxaparin 40 MG/0.4 ML Syringe SUBCUT SCH (15:35)
[2021-02-20] MEDS ORDERED: 50% Dextrose in Water 50 ML Syringe IVPUSH PRN ×3 (21:26→21:33)
[2021-02-20] MEDS ORDERED: Glucagon,Human Recombinant 1 MG Vial IM PRN ×3 (21:26→21:33)
[2021-02-20] MEDS ORDERED: Insulin Glargine,Human Rec. Analog 100 Units/ML 3 ML Pen ONE (21:45)
[2021-02-21] MEDS ORDERED: Insulin Lispro 100 Unit/ML 3 ML KwikPen SUBCUT SCH (08:00)
[2021-02-21] MEDS ORDERED: Glucagon,Human Recombinant 1 MG Vial IM PRN ×2 (08:13→11:30)
[2021-02-21] MEDS ORDERED: 50% Dextrose in Water 50 ML Syringe IVPUSH PRN ×2 (08:13→11:30)
[2021-02-21] MEDS: Insulin Lispro 100 Unit/ML 3 ML KwikPen SUBCUT SCH ×6 (08:43→20:56)
--- NOTE | 2021-02-21 09:35 | PCM.PN ---
- General Info Date of Service: 02/21/21 Subjective Update: No acute events overnight. Patient reports that he feels better again today compared to yesterday. Anion gap did finally normalize around 9 PM last night and he was transitioned to subcutaneous insulin. Blood sugars have been fairly well controlled overnight though were mildly elevated this morning. No nausea or abdominal pain. He is working with diabetic education and the nurses are showing him how to use the insulin pens. Appetite good. He has been up and walking around some. Functional Status: Reports: Pain Controlled, Tolerating Diet - Patient Data Vitals - Most Recent: Last Vital Signs Temp 36.4 C 02/21/21 08:00 Pulse 100 02/21/21 08:00 Resp 17 02/21/21 08:00 BP 114/68 02/21/21 08:00 Pulse Ox 96 02/21/21 08:00 Weight - Most Recent: 75.75 kg I&O - Last 24 Hours: Intake & Output 02/20/21 02/21/21 02/21/21 22:59 06:59 14:59 Intake Total 2237 1253 Output Total 1920 3485 425 Balance 317 -1272 -425 Lab Results Last 24 Hours: Laboratory Results - last 24 hr 02/20/21 02/20/21 02/20/21 Range/Units 05:37 09:04 10:09 Sodium 135 L (140-148) mmol/L Potassium 3.6 (3.6-5.2) mmol/L Chloride 104 (100-108) mmol/L Carbon Dioxide 17 L (21-32) mmol/L Anion Gap 17.6 H (5.0-14.0) mmol/L BUN 4 L 4 L (7-18) mg/dL Creatinine 0.8 (0.8-1.3) mg/dL Est Cr Clr Drug Dosing 113.77 mL/min Estimated GFR (MDRD) > 60 (>60) Glucose 303 H (74-106) mg/dL POC Glucose 308 H (74-106) mg/dL Calcium 8.1 L (8.5-10.1) mg/dL 02/20/21 02/20/21 02/20/21 Range/Units 10:59 11:54 13:02 Sodium 137 L (140-148) mmol/L Potassium 4.1 (3.6-5.2) mmol/L Chloride 104 (100-108) mmol/L Carbon Dioxide 17 L (21-32) mmol/L Anion Gap 20.1 H (5.0-14.0) mmol/L BUN 5 L (7-18) mg/dL Creatinine 0.9 (0.8-1.3) mg/dL Est Cr Clr Drug Dosing 101.47 mL/min Estimated GFR (MDRD) > 60 (>60) Glucose 178 H (74-106) mg/dL POC Glucose 240 H 193 H (74-106) mg/dL Calcium 8.4 L (8.5-10.1) mg/dL 02/20/21 02/20/21 02/20/21 Range/Units 13:12 14:10 15:15 Sodium (140-148) mmol/L Potassium (3.6-5.2) mmol/L Chloride (100-108) mmol/L Carbon Dioxide (21-32) mmol/L Anion Gap (5.0-14.0) mmol/L BUN (7-18) mg/dL Creatinine (0.8-1.3) mg/dL Est Cr Clr Drug Dosing mL/min Estimated GFR (MDRD) (>60) Glucose (74-106) mg/dL POC Glucose 203 H 240 H 262 H (74-106) mg/dL Calcium (8.5-10.1) mg/dL 02/20/21 02/20/21 02/20/21 Range/Units 16:08 17:03 17:15 Sodium 137 L (140-148) mmol/L Potassium 3.8 (3.6-5.2) mmol/L Chloride 103 (100-108) mmol/L Carbon Dioxide 19 L (21-32) mmol/L Anion Gap 18.8 H (5.0-14.0) mmol/L BUN 7 (7-18) mg/dL Creatinine 0.9 (0.8-1.3) mg/dL Est Cr Clr Drug Dosing 101.47 mL/min Estimated GFR (MDRD) > 60 (>60) Glucose 222 H (74-106) mg/dL POC Glucose 208 H 203 H (74-106) mg/dL Calcium 8.4 L (8.5-10.1) mg/dL 02/20/21 02/20/21 02/20/21 Range/Units 18:04 19:05 20:04 Sodium (140-148) mmol/L Potassium (3.6-5.2) mmol/L Chloride (100-108) mmol/L Carbon Dioxide (21-32) mmol/L Anion Gap (5.0-14.0) mmol/L BUN (7-18) mg/dL Creatinine (0.8-1.3) mg/dL Est Cr Clr Drug Dosing mL/min Estimated GFR (MDRD) (>60) Glucose (74-106) mg/dL POC Glucose 226 H 261 H 228 H (74-106) mg/dL Calcium (8.5-10.1) mg/dL 02/20/21 02/20/21 02/21/21 Range/Units 21:00 21:03 05:30 Sodium 138 L 138 L (140-148) mmol/L Potassium 4.1 3.8 (3.6-5.2) mmol/L Chloride 105 103 (100-108) mmol/L Carbon Dioxide 21 24 (21-32) mmol/L Anion Gap 16.1 H 14.8 H (5.0-14.0) mmol/L BUN 6 L 5 L (7-18) mg/dL Creatinine 0.8 0.8 (0.8-1.3) mg/dL Est Cr Clr Drug Dosing 114.15 114.15 mL/min Estimated GFR (MDRD) > 60 > 60 (>60) Glucose 208 H 199 H (74-106) mg/dL POC Glucose 210 H (74-106) mg/dL Calcium 8.6 8.8 (8.5-10.1) mg/dL 02/21/21 Range/Units 07:50 Sodium (140-148) mmol/L Potassium (3.6-5.2) mmol/L Chloride (100-108) mmol/L Carbon Dioxide (21-32) mmol/L Anion Gap (5.0-14.0) mmol/L BUN (7-18) mg/dL Creatinine (0.8-1.3) mg/dL Est Cr Clr Drug Dosing mL/min Estimated GFR (MDRD) (>60) Glucose (74-106) mg/dL POC Glucose 212 H (74-106) mg/dL Calcium (8.5-10.1) mg/dL Med Orders - Current: Current Medications Acetaminophen (Acetaminophen 325 Mg Tab) 650 mg PO Q4H PRN PRN Reason: Pain (Mild 1-3)/fever Dextrose/Water (50% Dextrose In Water 50 Ml Syringe) 50 ml IVPUSH ONETIME PRN PRN Reason: Blood Glucose Enoxaparin Sodium (Enoxaparin 40 Mg/0.4 Ml Syringe) 40 mg SUBCUT Q24H [facility] Last Admin: 02/20/21 15:35 Dose: 40 mg Documented by: Glucagon (Glucagon,Human Recombinant 1 Mg Vial) 1 mg IM ASDIRECTED PRN PRN Reason: Hypoglycemia Heparin Sodium (Porcine) (Heparin Sodium 100 Units/Ml 5 Ml Syringe) 500 units FLUSH ASDIRECTED PRN PRN Reason: Keep Vein Open Last Admin: 02/21/21 05:40 Dose: 500 units Documented by: Insulin Glargine (Insulin Glargine,Human Rec. Analog 100 Units/Ml 3 Ml Pen) 20 units SUBCUT BEDTIME ADIA Insulin Human Lispro (Insulin Lispro 100 Unit/Ml 3 Ml Kwikpen) 1 unit SUBCUT TIDMEALS [facility] Last Admin: 02/21/21 08:44 Dose: 3 units Documented by: Insulin Human Lispro (Insulin Lispro 100 Unit/Ml 3 Ml Kwikpen) 0 unit SUBCUT QIDACANDBED [facility]; Protocol Last Admin: 02/21/21 08:43 Dose: 2 units Documented by: Ondansetron HCl (Ondansetron 4 Mg/2 Ml Sdv) 4 mg IV Q4H PRN PRN Reason: Nausea/Vomiting Senna/Docusate Sodium (Docusate Sodium/Sennosides 50-8.6 Mg Tab) 1 tab PO BID PRN PRN Reason: Constipation Sodium Chloride (Sodium Chloride 0.9% 10 Ml Syringe) 10 ml FLUSH ASDIRECTED PRN PRN Reason: Keep Vein Open Discontinued Medications Acetaminophen (Acetaminophen 500 Mg Tab) 1,000 mg PO ONETIME ONE Stop: 02/18/21 11:50 Last Admin: 02/20/21 11:36 Dose: Not Given Documented by: Heparin Sodium (Porcine) (Heparin Sodium 100 Units/Ml 5 Ml Syringe) Confirm Administered Dose 500 units .ROUTE .STK-MED ONE Stop: 02/18/21 16:14 Last Admin: 02/18/21 18:17 Dose: Not Given Documented by: Lactated Ringer's (Ringers, Lactated) 1,000 mls @ 1,000 mls/hr IV BOLUS ONE Stop: 02/18/21 09:51 Last Admin: 02/18/21 09:51 Dose: 1,000 mls/hr Documented by: Insulin Regular in 0.9 % NACL (Myxredlin In Ns 100 Unit/100 Ml) 100 unit in 100 mls @ 7.893 mls/hr IV ASDIRECTED ADIA Last Admin: 02/18/21 09:53 Dose: 0.1 units/kg/hr, 7.893 mls/hr Documented by: Sodium Chloride (Normal Saline) 1,000 mls @ 1,000 mls/hr IV .BOLUS ONE Stop: 02/18/21 12:49 Last Admin: 02/18/21 12:58 Dose: 1,000 mls/hr Documented by: Potassium Chloride 20 meq/Lidocaine HCl 2 ml/ Sodium Chloride 112 mls @ 56 mls/hr IV ONETIME ONE Stop: 02/18/21 14:44 Last Admin: 02/18/21 13:01 Dose: 56 mls/hr Documented by: Sodium Chloride (Normal Saline) 2,000 mls @ 500 mls/hr IV .CONTINUOUS PRN PRN Reason: Blood Glucose Last Admin: 02/20/21 15:19 Dose: 500 mls/hr Documented by: Potassium Chloride 20 meq/ (Premix) 100 mls @ 50 mls/hr IV ASDIRECTED PRN PRN Reason: K+ 3.5-3.9 Last Admin: 02/20/21 17:56 Dose: 50 mls/hr Documented by: Potassium Chloride 20 meq/ (Premix) 100 mls @ 50 mls/hr IV Q2H PRN PRN Reason: Hypokalemia 3 - 3.4 Last Admin: 02/19/21 08:02 Dose: 50 mls/hr Documented by: Potassium Chloride 20 meq/ (Premix) 100 mls @ 50 mls/hr IV Q2H PRN PRN Reason: Hypokalemia 2.5-2.9 Last Admin: 02/19/21 22:55 Dose: 50 mls/hr Documented by: Magnesium Sulfate (Magnesium Sulfate In Water 2 Gm/50 Ml) 50 mls @ 25 mls/hr IV ONETIME PRN PRN Reason: low magnesium Last Admin: 02/19/21 14:02 Dose: 25 mls/hr Documented by: Sodium Phosphate 60 mmole/ (Sodium Chloride) 270 mls @ 62.5 mls/hr IV ONETIME PRN PRN Reason: Low phophorus Last Admin: 02/19/21 14:36 Dose: 62.5 mls/hr Documented by: Insulin Regular in 0.9 % NACL (Myxredlin In Ns 100 Unit/100 Ml) 100 mls @ 7.893 mls/hr IV ASDIRECTED [facility]; Protocol Last Infusion: 02/20/21 20:06 Dose: 0.05 units/kg/hr, 4 mls/hr Documented by: Dextrose/Sodium Chloride (Dextrose 5%-1/2 Ns) 1,000 mls @ 150 mls/hr IV ASDIRECTED [facility] Last Admin: 02/20/21 15:29 Dose: 150 mls/hr Documented by: Potassium Phosphate 15 mmol/ (Premix) 250 mls @ 125 mls/hr IV ONETIME ONE Stop: 02/18/21 22:40 Last Admin: 02/18/21 21:07 Dose: 125 mls/hr Documented by: Premix (Premix Bag) Confirm Administered Dose 3 mls @ as directed .ROUTE .STK- MED ONE Stop: 02/18/21 20:53 Last Admin: 02/18/21 21:12 Dose: Not Given Documented by: Potassium Phosphate 15 mmol/ (Premix) 250 mls @ 125 mls/hr IV ONETIME ONE Stop: 02/19/21 00:59 Last Admin: 02/18/21 23:07 Dose: 125 mls/hr Documented by: Potassium Phosphate 15 mmol/ (Premix) 250 mls @ 125 mls/hr IV ONETIME ONE Stop: 02/19/21 02:59 Last Admin: 02/19/21 01:10 Dose: 125 mls/hr Documented by: Potassium Phosphate 15 mmol/ (Premix) 250 mls @ 125 mls/hr IV ONETIME ONE Stop: 02/19/21 04:58 Last Admin: 02/19/21 03:13 Dose: 125 mls/hr Documented by: Potassium Chloride 20 meq/ (Premix) 100 mls @ 50 mls/hr IV Q2H [facility] Stop: 02/19/21 14:29 Last Admin: 02/19/21 12:39 Dose: 50 mls/hr Documented by: Potassium Chloride 20 meq/ (Premix) 100 mls @ 50 mls/hr IV Q2H PRN PRN Reason: Hypokalemia 3 - 3.4 Last Admin: 02/20/21 00:58 Dose: 50 mls/hr Documented by: Potassium Chloride 40 meq/ (Premix) 100 mls @ 25 mls/hr IV ONETIME ONE Stop: 02/19/21 18:44 Last Admin: 02/19/21 14:41 Dose: 25 mls/hr Documented by: Insulin Glargine (Insulin Glargine,Human Rec. Analog 100 Units/Ml 3 Ml Pen) 18 units SUBCUT ONETIME ONE Stop: 02/21/21 21:28 Last Admin: 02/20/21 21:50 Dose: 18 units Documented by: Insulin Glargine (Insulin Glargine,Human Rec. Analog 100 Units/Ml 3 Ml Pen) Confirm Administered Dose 300 units .ROUTE .STK-MED ONE Stop: 02/20/21 21:46 Last Admin: 02/20/21 22:03 Dose: Not Given Documented by: Potassium Chloride (Potassium Chloride 20 Meq Tab.Er) 40 meq PO ONETIME ONE Stop: 02/18/21 11:52 Last Admin: 02/18/21 13:05 Dose: 40 meq Documented by: Potassium Chloride (Potassium Chloride 10% 20 Meq/15 Ml Soln 15 Ml Ud Cup) 20 meq PO ASDIRECTED PRN PRN Reason: Hypokalemia Last Admin: 02/20/21 17:58 Dose: 20 meq Documented by: Potassium Chloride (Potassium Chloride 10% 20 Meq/15 Ml Soln 15 Ml Ud Cup) 40 meq PO ASDIRECTED PRN PRN Reason: Hypokalemia Last Admin: 02/19/21 02:41 Dose: 40 meq Documented by: Potassium Chloride (Potassium Chloride 10% 20 Meq/15 Ml Soln 15 Ml Ud Cup) 40 meq PO Q2H PRN PRN Reason: Hypokalemia Potassium Chloride (Potassium Chloride 20 Meq Tab.Er) 40 meq PO Q2H ADIA Stop: 02/19/21 10:16 Last Admin: 02/19/21 10:08 Dose: 40 meq Documented by: Potassium Chloride (Potassium Chloride 20 Meq Tab.Er) 40 meq PO ONETIME ONE Stop: 02/19/21 17:54 Last Admin: 02/19/21 18:01 Dose: 40 meq Documented by: Potassium Chloride (Potassium Chloride 20 Meq Tab.Er) 40 meq PO ONETIME ONE Stop: 02/19/21 22:01 Last Admin: 02/19/21 22:05 Dose: 40 meq Documented by: Sodium Chloride (Sodium Chloride 0.9% 10 Ml Syringe) 10 ml FLUSH ASDIRECTED PRN PRN Reason: Keep Vein Open Last Admin: 02/18/21 09:52 Dose: 10 ml Documented by: - Exam Quality Assessment: No: Supplemental Oxygen General: Alert, Oriented, Cooperative, No Acute Distress Lungs: Normal Respiratory Effort GI/Abdominal Exam: No Distention Extremities: No Pedal Edema Skin: Warm, Dry Psy/Mental Status: Alert, Normal Affect - Patient Data Lab Results Last 24 hrs: Laboratory Results - last 24 hr 02/20/21 02/20/21 02/20/21 Range/Units 05:37 09:04 10:09 Sodium 135 L (140-148) mmol/L Potassium 3.6 (3.6-5.2) mmol/L Chloride 104 (100-108) mmol/L Carbon Dioxide 17 L (21-32) mmol/L Anion Gap 17.6 H (5.0-14.0) mmol/L BUN 4 L 4 L (7-18) mg/dL Creatinine 0.8 (0.8-1.3) mg/dL Est Cr Clr Drug Dosing 113.77 mL/min Estimated GFR (MDRD) > 60 (>60) Glucose 303 H (74-106) mg/dL POC Glucose 308 H (74-106) mg/dL Calcium 8.1 L (8.5-10.1) mg/dL 02/20/21 02/20/21 02/20/21 Range/Units 10:59 11:54 13:02 Sodium 137 L (140-148) mmol/L Potassium 4.1 (3.6-5.2) mmol/L Chloride 104 (100-108) mmol/L Carbon Dioxide 17 L (21-32) mmol/L Anion Gap 20.1 H (5.0-14.0) mmol/L BUN 5 L (7-18) mg/dL Creatinine 0.9 (0.8-1.3) mg/dL Est Cr Clr Drug Dosing 101.47 mL/min Estimated GFR (MDRD) > 60 (>60) Glucose 178 H (74-106) mg/dL POC Glucose 240 H 193 H (74-106) mg/dL Calcium 8.4 L (8.5-10.1) mg/dL 02/20/21 02/20/21 02/20/21 Range/Units 13:12 14:10 15:15 Sodium (140-148) mmol/L Potassium (3.6-5.2) mmol/L Chloride (100-108) mmol/L Carbon Dioxide (21-32) mmol/L Anion Gap (5.0-14.0) mmol/L BUN (7-18) mg/dL Creatinine (0.8-1.3) mg/dL Est Cr Clr Drug Dosing mL/min Estimated GFR (MDRD) (>60) Glucose (74-106) mg/dL POC Glucose 203 H 240 H 262 H (74-106) mg/dL Calcium (8.5-10.1) mg/dL 02/20/21 02/20/21 02/20/21 Range/Units 16:08 17:03 17:15 Sodium 137 L (140-148) mmol/L Potassium 3.8 (3.6-5.2) mmol/L Chloride 103 (100-108) mmol/L Carbon Dioxide 19 L (21-32) mmol/L Anion Gap 18.8 H (5.0-14.0) mmol/L BUN 7 (7-18) mg/dL Creatinine 0.9 (0.8-1.3) mg/dL Est Cr Clr Drug Dosing 101.47 mL/min Estimated GFR (MDRD) > 60 (>60) Glucose 222 H (74-106) mg/dL POC Glucose 208 H 203 H (74-106) mg/dL Calcium 8.4 L (8.5-10.1) mg/dL 02/20/21 02/20/21 02/20/21 Range/Units 18:04 19:05 20:04 Sodium (140-148) mmol/L Potassium (3.6-5.2) mmol/L Chloride (100-108) mmol/L Carbon Dioxide (21-32) mmol/L Anion Gap (5.0-14.0) mmol/L BUN (7-18) mg/dL Creatinine (0.8-1.3) mg/dL Est Cr Clr Drug Dosing mL/min Estimated GFR (MDRD) (>60) Glucose (74-106) mg/dL POC Glucose 226 H 261 H 228 H (74-106) mg/dL Calcium (8.5-10.1) mg/dL 02/20/21 02/20/21 02/21/21 Range/Units 21:00 21:03 05:30 Sodium 138 L 138 L (140-148) mmol/L Potassium 4.1 3.8 (3.6-5.2) mmol/L Chloride 105 103 (100-108) mmol/L Carbon Dioxide 21 24 (21-32) mmol/L Anion Gap 16.1 H 14.8 H (5.0-14.0) mmol/L BUN 6 L 5 L (7-18) mg/dL Creatinine 0.8 0.8 (0.8-1.3) mg/dL Est Cr Clr Drug Dosing 114.15 114.15 mL/min Estimated GFR (MDRD) > 60 > 60 (>60) Glucose 208 H 199 H (74-106) mg/dL POC Glucose 210 H (74-106) mg/dL Calcium 8.6 8.8 (8.5-10.1) mg/dL 02/21/21 Range/Units 07:50 Sodium (140-148) mmol/L Potassium (3.6-5.2) mmol/L Chloride (100-108) mmol/L Carbon Dioxide (21-32) mmol/L Anion Gap (5.0-14.0) mmol/L BUN (7-18) mg/dL Creatinine (0.8-1.3) mg/dL Est Cr Clr Drug Dosing mL/min Estimated GFR (MDRD) (>60) Glucose (74-106) mg/dL POC Glucose 212 H (74-106) mg/dL Calcium (8.5-10.1) mg/dL Result Diagrams: 02/20/21 05:37 02/21/21 05:30 Sepsis Event Note - Evaluation Sepsis Screening Result: No Definite Risk - Focused Exam Vital Signs: Vital Signs Temp Pulse Resp BP Pulse Ox 02/21/21 08:00 36.4 C 100 17 114/68 96 02/21/21 06:00 36.6 C 100 16 103/68 97 02/21/21 04:00 36.6 C 90 16 118/72 97 02/21/21 02:00 36.5 C 85 15 119/72 98 02/21/21 00:00 92 20 128/78 98 02/20/21 22:00 99 17 146/90 H 97 - Problem List Review Problem List Initiated/Reviewed/Updated: Yes - My Orders Last 24 Hours: My Active Orders 02/20/21 21:26 Glucagon,Human Recombinant [GlucaGen] 1 mg IM ASDIRECTED PRN 02/20/21 22:20 Vital Signs [RC] Q4H 02/21/21 07:00 Accu Check [Blood Glucose Check, Bedside] [RC] QIDACANDBED Insulin Lispro [HumaLOG] See Protocol SUBCUT QIDACANDBED 02/21/21 08:00 Insulin Lispro [HumaLOG] 1 unit SUBCUT TIDMEALS 02/21/21 09:34 Transfer Patient (Change bed) [ADT] Routine Discontinue Telemetry Monitoring [Cardiac Monitoring Discontinue] [RC] Click to Edit 02/21/21 21:00 Insulin Glarg,Human.Rec.Analog [LantUS Solostar] 20 units SUBCUT BEDTIME 02/22/21 05:00 BASIC METABOLIC PANEL,BMP [CHEM] Timed - Plan Plan:: ASSESSMENT AND PLAN DIABETIC KETOACIDOSIS-no prior history of diabetes. No evidence of underlying infection or other precipitating cause. Ketoacidosis has finally resolved and his anion gap was normal last night. He has been transitioned to subcutaneous insulin. -Management as below TYPE 1 DIABETES MELLITUS-new diagnosis. Transitioned to subcutaneous insulin last night. -Long-acting insulin at bedtime -2 units per carb with meals -Sliding scale insulin until optimal dosing can be determined -Diabetes education for monitoring and insulin management -Outpatient follow-up with diabetic educators to consider continuous glucose monitoring and potentially an insulin pump Acute kidney injury-secondary to DKA. Creatinine has normalized with management as above. MAINTENANCE ISSUES -DVT prophylaxis; Lovenox 40 mg subcu daily -GI prophylaxis; not indicated -Chaney catheter; not indicated -Nutrition; consistent carbohydrate diet DISPOSITION-anticipate discharge to home after the hospital stay, hopefully in 1 or maybe 2 days Issac Khanna MD
[2021-02-21] MEDS ORDERED: Insulin Lispro 100 Unit/ML 3 ML KwikPen SUBCUT ONE (11:30)
[2021-02-21] MEDS: Enoxaparin 40 MG/0.4 ML Syringe SUBCUT SCH (15:22)
[2021-02-21] MEDS ORDERED: Insulin Glargine,Human Rec. Analog 100 Units/ML 3 ML Pen SUBCUT SCH ×2 (21:00)
[2021-02-21] MEDS ORDERED: Insulin Glargine,Human Rec. Analog 100 Units/ML 3 ML Pen SUBCUT ONE (21:27)
[2021-02-22] MEDS: Insulin Lispro 100 Unit/ML 3 ML KwikPen SUBCUT SCH ×7 (08:07→21:37)
--- NOTE | 2021-02-22 09:26 | PCM.PN ---
- General Info Date of Service: 02/22/21 Subjective Update: No acute events overnight. Patient is feeling well. Moderate elevation of blood sugars but otherwise doing well. Blood sugars have been trending down but are not quite optimally controlled. No nausea or abdominal pain. He has been up and walking around. Functional Status: Reports: Pain Controlled - Review of Systems General: Denies: Fever - Patient Data Vitals - Most Recent: Last Vital Signs Temp 36.3 C 02/22/21 07:45 Pulse 94 02/22/21 07:45 Resp 12 02/22/21 07:45 BP 113/56 L 02/22/21 07:45 Pulse Ox 98 02/22/21 07:45 Weight - Most Recent: 73.936 kg I&O - Last 24 Hours: Intake & Output 02/21/21 02/22/21 02/22/21 22:59 06:59 14:59 Intake Total 1110 Balance 1110 Lab Results Last 24 Hours: Laboratory Results - last 24 hr 02/21/21 02/21/21 02/21/21 Range/Units 11:26 16:12 20:52 Sodium (140-148) mmol/L Potassium (3.6-5.2) mmol/L Chloride (100-108) mmol/L Carbon Dioxide (21-32) mmol/L Anion Gap (5.0-14.0) mmol/L BUN (7-18) mg/dL Creatinine (0.8-1.3) mg/dL Est Cr Clr Drug Dosing mL/min Estimated GFR (MDRD) (>60) Glucose (74-106) mg/dL POC Glucose 404 H* 300 H 290 H (74-106) mg/dL Calcium (8.5-10.1) mg/dL 02/22/21 02/22/21 Range/Units 04:30 07:44 Sodium 139 L (140-148) mmol/L Potassium 3.6 (3.6-5.2) mmol/L Chloride 101 (100-108) mmol/L Carbon Dioxide 27 (21-32) mmol/L Anion Gap 14.6 H (5.0-14.0) mmol/L BUN 9 D (7-18) mg/dL Creatinine 0.8 (0.8-1.3) mg/dL Est Cr Clr Drug Dosing 114.15 mL/min Estimated GFR (MDRD) > 60 (>60) Glucose 239 H (74-106) mg/dL POC Glucose 253 H (74-106) mg/dL Calcium 8.5 (8.5-10.1) mg/dL Med Orders - Current: Current Medications Acetaminophen (Acetaminophen 325 Mg Tab) 650 mg PO Q4H PRN PRN Reason: Pain (Mild 1-3)/fever Dextrose/Water (50% Dextrose In Water 50 Ml Syringe) 50 ml IVPUSH ONETIME PRN PRN Reason: Blood Glucose Enoxaparin Sodium (Enoxaparin 40 Mg/0.4 Ml Syringe) 40 mg SUBCUT Q24H [facility] Last Admin: 02/21/21 15:22 Dose: 40 mg Documented by: Glucagon (Glucagon,Human Recombinant 1 Mg Vial) 1 mg IM ASDIRECTED PRN PRN Reason: Hypoglycemia Heparin Sodium (Porcine) (Heparin Sodium 100 Units/Ml 5 Ml Syringe) 500 units FLUSH ASDIRECTED PRN PRN Reason: Keep Vein Open Last Admin: 02/22/21 04:58 Dose: 500 units Documented by: Insulin Glargine (Insulin Glargine,Human Rec. Analog 100 Units/Ml 3 Ml Pen) 26 units SUBCUT BEDTIME [facility] Insulin Human Lispro (Insulin Lispro 100 Unit/Ml 3 Ml Kwikpen) 0 unit SUBCUT TIDMEALS [facility] Last Admin: 02/22/21 08:07 Dose: 6 units Documented by: Insulin Human Lispro (Insulin Lispro 100 Unit/Ml 3 Ml Kwikpen) 0 unit SUBCUT QIDACANDBED [facility]; Protocol Last Admin: 02/22/21 08:07 Dose: 6 units Documented by: Ondansetron HCl (Ondansetron 4 Mg/2 Ml Sdv) 4 mg IV Q4H PRN PRN Reason: Nausea/Vomiting Senna/Docusate Sodium (Docusate Sodium/Sennosides 50-8.6 Mg Tab) 1 tab PO BID PRN PRN Reason: Constipation Sodium Chloride (Sodium Chloride 0.9% 10 Ml Syringe) 10 ml FLUSH ASDIRECTED PRN PRN Reason: Keep Vein Open Discontinued Medications Acetaminophen (Acetaminophen 500 Mg Tab) 1,000 mg PO ONETIME ONE Stop: 02/18/21 11:50 Last Admin: 02/20/21 11:36 Dose: Not Given Documented by: Heparin Sodium (Porcine) (Heparin Sodium 100 Units/Ml 5 Ml Syringe) Confirm Administered Dose 500 units .ROUTE .STK-MED ONE Stop: 02/18/21 16:14 Last Admin: 02/18/21 18:17 Dose: Not Given Documented by: Lactated Ringer's (Ringers, Lactated) 1,000 mls @ 1,000 mls/hr IV BOLUS ONE Stop: 02/18/21 09:51 Last Admin: 02/18/21 09:51 Dose: 1,000 mls/hr Documented by: Insulin Regular in 0.9 % NACL (Myxredlin In Ns 100 Unit/100 Ml) 100 unit in 100 mls @ 7.893 mls/hr IV ASDIRECTED [facility] Last Admin: 02/18/21 09:53 Dose: 0.1 units/kg/hr, 7.893 mls/hr Documented by: Sodium Chloride (Normal Saline) 1,000 mls @ 1,000 mls/hr IV .BOLUS ONE Stop: 02/18/21 12:49 Last Admin: 02/18/21 12:58 Dose: 1,000 mls/hr Documented by: Potassium Chloride 20 meq/Lidocaine HCl 2 ml/ Sodium Chloride 112 mls @ 56 mls/hr IV ONETIME ONE Stop: 02/18/21 14:44 Last Admin: 02/18/21 13:01 Dose: 56 mls/hr Documented by: Sodium Chloride (Normal Saline) 2,000 mls @ 500 mls/hr IV .CONTINUOUS PRN PRN Reason: Blood Glucose Last Admin: 02/20/21 15:19 Dose: 500 mls/hr Documented by: Potassium Chloride 20 meq/ (Premix) 100 mls @ 50 mls/hr IV ASDIRECTED PRN PRN Reason: K+ 3.5-3.9 Last Admin: 02/20/21 17:56 Dose: 50 mls/hr Documented by: Potassium Chloride 20 meq/ (Premix) 100 mls @ 50 mls/hr IV Q2H PRN PRN Reason: Hypokalemia 3 - 3.4 Last Admin: 02/19/21 08:02 Dose: 50 mls/hr Documented by: Potassium Chloride 20 meq/ (Premix) 100 mls @ 50 mls/hr IV Q2H PRN PRN Reason: Hypokalemia 2.5-2.9 Last Admin: 02/19/21 22:55 Dose: 50 mls/hr Documented by: Magnesium Sulfate (Magnesium Sulfate In Water 2 Gm/50 Ml) 50 mls @ 25 mls/hr IV ONETIME PRN PRN Reason: low magnesium Last Admin: 02/19/21 14:02 Dose: 25 mls/hr Documented by: Sodium Phosphate 60 mmole/ (Sodium Chloride) 270 mls @ 62.5 mls/hr IV ONETIME PRN PRN Reason: Low phophorus Last Admin: 02/19/21 14:36 Dose: 62.5 mls/hr Documented by: Insulin Regular in 0.9 % NACL (Myxredlin In Ns 100 Unit/100 Ml) 100 mls @ 7.893 mls/hr IV ASDIRECTED [facility]; Protocol Last Infusion: 02/20/21 20:06 Dose: 0.05 units/kg/hr, 4 mls/hr Documented by: Dextrose/Sodium Chloride (Dextrose 5%-1/2 Ns) 1,000 mls @ 150 mls/hr IV ASDIRECTED [facility] Last Admin: 02/20/21 15:29 Dose: 150 mls/hr Documented by: Potassium Phosphate 15 mmol/ (Premix) 250 mls @ 125 mls/hr IV ONETIME ONE Stop: 02/18/21 22:40 Last Admin: 02/18/21 21:07 Dose: 125 mls/hr Documented by: Premix (Premix Bag) Confirm Administered Dose 3 mls @ as directed .ROUTE .STK- MED ONE Stop: 02/18/21 20:53 Last Admin: 02/18/21 21:12 Dose: Not Given Documented by: Potassium Phosphate 15 mmol/ (Premix) 250 mls @ 125 mls/hr IV ONETIME ONE Stop: 02/19/21 00:59 Last Admin: 02/18/21 23:07 Dose: 125 mls/hr Documented by: Potassium Phosphate 15 mmol/ (Premix) 250 mls @ 125 mls/hr IV ONETIME ONE Stop: 02/19/21 02:59 Last Admin: 02/19/21 01:10 Dose: 125 mls/hr Documented by: Potassium Phosphate 15 mmol/ (Premix) 250 mls @ 125 mls/hr IV ONETIME ONE Stop: 02/19/21 04:58 Last Admin: 02/19/21 03:13 Dose: 125 mls/hr Documented by: Potassium Chloride 20 meq/ (Premix) 100 mls @ 50 mls/hr IV Q2H [facility] Stop: 02/19/21 14:29 Last Admin: 02/19/21 12:39 Dose: 50 mls/hr Documented by: Potassium Chloride 20 meq/ (Premix) 100 mls @ 50 mls/hr IV Q2H PRN PRN Reason: Hypokalemia 3 - 3.4 Last Admin: 02/20/21 00:58 Dose: 50 mls/hr Documented by: Potassium Chloride 40 meq/ (Premix) 100 mls @ 25 mls/hr IV ONETIME ONE Stop: 02/19/21 18:44 Last Admin: 02/19/21 14:41 Dose: 25 mls/hr Documented by: Insulin Glargine (Insulin Glargine,Human Rec. Analog 100 Units/Ml 3 Ml Pen) 18 units SUBCUT ONETIME ONE Stop: 02/21/21 21:28 Last Admin: 02/20/21 21:50 Dose: 18 units Documented by: Insulin Glargine (Insulin Glargine,Human Rec. Analog 100 Units/Ml 3 Ml Pen) Confirm Administered Dose 300 units .ROUTE .STK-MED ONE Stop: 02/20/21 21:46 Last Admin: 02/20/21 22:03 Dose: Not Given Documented by: Insulin Glargine (Insulin Glargine,Human Rec. Analog 100 Units/Ml 3 Ml Pen) 20 units SUBCUT BEDTIME [facility] Insulin Glargine (Insulin Glargine,Human Rec. Analog 100 Units/Ml 3 Ml Pen) 22 units SUBCUT BEDTIME [facility] Last Admin: 02/21/21 20:54 Dose: 22 units Documented by: Insulin Human Lispro (Insulin Lispro 100 Unit/Ml 3 Ml Kwikpen) 1 unit SUBCUT TIDMEALS [facility] Last Admin: 02/21/21 08:44 Dose: 3 units Documented by: Insulin Human Lispro (Insulin Lispro 100 Unit/Ml 3 Ml Kwikpen) 0 unit SUBCUT QIDACANDBED [facility]; Protocol Last Admin: 02/21/21 11:40 Dose: Not Given Documented by: Insulin Human Lispro (Insulin Lispro 100 Unit/Ml 3 Ml Kwikpen) 6 unit SUBCUT ONETIME ONE Stop: 02/21/21 11:31 Last Admin: 02/21/21 11:36 Dose: 6 units Documented by: Potassium Chloride (Potassium Chloride 20 Meq Tab.Er) 40 meq PO ONETIME ONE Stop: 02/18/21 11:52 Last Admin: 02/18/21 13:05 Dose: 40 meq Documented by: Potassium Chloride (Potassium Chloride 10% 20 Meq/15 Ml Soln 15 Ml Ud Cup) 20 meq PO ASDIRECTED PRN PRN Reason: Hypokalemia Last Admin: 02/20/21 17:58 Dose: 20 meq Documented by: Potassium Chloride (Potassium Chloride 10% 20 Meq/15 Ml Soln 15 Ml Ud Cup) 40 meq PO ASDIRECTED PRN PRN Reason: Hypokalemia Last Admin: 02/19/21 02:41 Dose: 40 meq Documented by: Potassium Chloride (Potassium Chloride 10% 20 Meq/15 Ml Soln 15 Ml Ud Cup) 40 meq PO Q2H PRN PRN Reason: Hypokalemia Potassium Chloride (Potassium Chloride 20 Meq Tab.Er) 40 meq PO Q2H [facility] Stop: 02/19/21 10:16 Last Admin: 02/19/21 10:08 Dose: 40 meq Documented by: Potassium Chloride (Potassium Chloride 20 Meq Tab.Er) 40 meq PO ONETIME ONE Stop: 02/19/21 17:54 Last Admin: 02/19/21 18:01 Dose: 40 meq Documented by: Potassium Chloride (Potassium Chloride 20 Meq Tab.Er) 40 meq PO ONETIME ONE Stop: 02/19/21 22:01 Last Admin: 02/19/21 22:05 Dose: 40 meq Documented by: Sodium Chloride (Sodium Chloride 0.9% 10 Ml Syringe) 10 ml FLUSH ASDIRECTED PRN PRN Reason: Keep Vein Open Last Admin: 02/18/21 09:52 Dose: 10 ml Documented by: - Exam Quality Assessment: No: Supplemental Oxygen General: Alert, Oriented, Cooperative, No Acute Distress Lungs: Normal Respiratory Effort GI/Abdominal Exam: No Distention Extremities: No Pedal Edema Psy/Mental Status: Alert, Normal Affect - Patient Data Lab Results Last 24 hrs: Laboratory Results - last 24 hr 02/21/21 02/21/21 02/21/21 Range/Units 11:26 16:12 20:52 Sodium (140-148) mmol/L Potassium (3.6-5.2) mmol/L Chloride (100-108) mmol/L Carbon Dioxide (21-32) mmol/L Anion Gap (5.0-14.0) mmol/L BUN (7-18) mg/dL Creatinine (0.8-1.3) mg/dL Est Cr Clr Drug Dosing mL/min Estimated GFR (MDRD) (>60) Glucose (74-106) mg/dL POC Glucose 404 H* 300 H 290 H (74-106) mg/dL Calcium (8.5-10.1) mg/dL 02/22/21 02/22/21 Range/Units 04:30 07:44 Sodium 139 L (140-148) mmol/L Potassium 3.6 (3.6-5.2) mmol/L Chloride 101 (100-108) mmol/L Carbon Dioxide 27 (21-32) mmol/L Anion Gap 14.6 H (5.0-14.0) mmol/L BUN 9 D (7-18) mg/dL Creatinine 0.8 (0.8-1.3) mg/dL Est Cr Clr Drug Dosing 114.15 mL/min Estimated GFR (MDRD) > 60 (>60) Glucose 239 H (74-106) mg/dL POC Glucose 253 H (74-106) mg/dL Calcium 8.5 (8.5-10.1) mg/dL Result Diagrams: 02/20/21 05:37 02/22/21 04:30 Sepsis Event Note - Evaluation Sepsis Screening Result: No Definite Risk - Focused Exam Vital Signs: Vital Signs Temp Pulse Resp BP Pulse Ox 02/22/21 07:45 36.3 C 94 12 113/56 L 98 02/22/21 04:00 36.5 C 15 116/65 95 02/22/21 00:00 82 16 99/47 L 94 L - Problem List Review Problem List Initiated/Reviewed/Updated: Yes - My Orders Last 24 Hours: My Active Orders 02/21/21 09:34 Transfer Patient (Change bed) [ADT] Routine 02/21/21 11:00 Vital Signs [RC] Q4H Vital Signs [RC] Q4HR 02/21/21 12:00 Insulin Lispro [HumaLOG] 0 unit SUBCUT TIDMEALS 02/21/21 17:00 Insulin Lispro [HumaLOG] See Protocol SUBCUT QIDACANDBED 02/22/21 21:00 Insulin Glarg,Human.Rec.Analog [LantUS Solostar] 26 units SUBCUT BEDTIME - Plan Plan:: ASSESSMENT AND PLAN DIABETIC KETOACIDOSIS-no prior history of diabetes. No evidence of underlying infection or other precipitating cause. Ketoacidosis has finally resolved and his anion gap was normal last night. He has been transitioned to subcutaneous insulin. -Management as below TYPE 1 DIABETES MELLITUS-new diagnosis. Moderate elevation of blood sugars with suboptimal control though it is improving. -Increased dose of long-acting insulin at bedtime -2 units per carb with meals -Medium dose sliding scale insulin until optimal dosing can be determined -Diabetes education for monitoring and insulin management -Outpatient follow-up with diabetic educators to consider continuous glucose monitoring and potentially an insulin pump Acute kidney injury-secondary to DKA. Creatinine has normalized with management as above. MAINTENANCE ISSUES -DVT prophylaxis; Lovenox 40 mg subcu daily -GI prophylaxis; not indicated -Chaney catheter; not indicated -Nutrition; consistent carbohydrate diet DISPOSITION-anticipate discharge to home after the hospital stay, hopefully tomorrow Issac Khanna MD
[2021-02-22] MEDS: Enoxaparin 40 MG/0.4 ML Syringe SUBCUT SCH (17:06)
[2021-02-22] MEDS ORDERED: Insulin Glargine,Human Rec. Analog 100 Units/ML 3 ML Pen SUBCUT SCH (21:00)
[2021-02-23] MEDS ORDERED: Insulin Lispro 100 Unit/ML 3 ML KwikPen SUBCUT SCH (08:00)
--- NOTE | 2021-02-23 09:00 | PCM.DCSUM1 ---
Discharge Summary - Hospital Course Brief History: Healthy 45-year-old male who presented to the emergency room with a decreased level of consciousness. Work-up in the emergency room suggested acute diabetic ketoacidosis and acute kidney injury. He was admitted to the intensive care unit for further management. Diagnosis: Stroke: No - Discharge Data Discharge Date: 02/23/21 Discharge Disposition: Home, Self-Care 01 Condition: Good - Referral to Home Health Primary Care Physician: PCP None - Discharge Diagnosis/Problem(s) (1) Diabetic ketoacidosis associated with type 1 diabetes mellitus SNOMED Code(s): 038040330, 810148762 ICD Code: E10.10 - TYPE 1 DIABETES MELLITUS WITH KETOACIDOSIS WITHOUT COMA Status: Acute Qualifiers: Diabetes mellitus complication detail: without coma Qualified Code(s): E10.10 - Type 1 diabetes mellitus with ketoacidosis without coma (2) New onset type 1 diabetes mellitus, uncontrolled SNOMED Code(s): 783133706 ICD Code: E10.65 - TYPE 1 DIABETES MELLITUS WITH HYPERGLYCEMIA Status: Acute - Patient Summary/Data Consults: Consultations 02/18/21 13:00 Consult to Diabetic Nurse Specialist [CONS] Urgent Comment: Physician Instructions: Hospital Course: Tylor presented to the emergency room with a decreased level of consciousness. Work-up in the emergency room suggested diabetic ketoacidosis with a blood sugar of more than 850, severe acidosis with a venous pH of 6.9 and evidence for ketones. He also had acute kidney injury and leukocytosis. He was started on IV insulin and aggressive IV fluids. He was admitted to the intensive care unit for further management. Management of the DKA in the emergency room included aggressive IV fluids and IV insulin. This was continued into the intensive care unit admission. His electrolytes were managed after serial checks of basic me tabolic profile. Potassium and magnesium were supplemented as needed. We did see a steady decrease in his blood sugar over the next 24 hours and as the blood sugar decreased and his pH improved his mental status improved. Eventually his blood sugar came down below 150 but he continued to have a significant anion gap metabolic acidosis so dextrose was added to his IV fluids and the insulin drip was continued. This treatment plan was continued along with electrolyte replacement until his anion gap normalized. At this point he was transitioned to subcutaneous insulin. We started him out at 0.6 units/kg with half of the split between basal and bolus. This was insufficient for his insulin needs so this was uptitrated over the next couple of days. We have seen improvement but slightly suboptimal control at this point. He has been receiving diabetic education throughout the course of the week. I believe we have seen good enough improvement in the blood sugar numbers and he is comfortable enough with managing the diabetes that he is safe for discharged home. His acute kidney injury has resolved. His leukocytosis has resolved. He is up and walking around. Tolerating a regular diet. Plan is for him to go home with a combination of basal and mealtime bolus insulin. He has early follow-up with primary care and diabetic education. He is interested in this much technology as possible including continuous glucose monitoring and potentially an insulin pump depending on how things go. - Patient Instructions Diet: Diabetic Diet Activity: As Tolerated Showering/Bathing: May Shower Other/Special Instructions: 1. You were in the hospital for management of acute diabetic ketoacidosis and a new diagnosis of diabetes mellitus. Your condition has been improving with IV fluid hydration and insulin therapy. We have initiated a combination of long-acting and mealtime insulin to help control your blood sugars. I recommend that you take 30 units of Lantus at bedtime. I recommend that you take 3 units per carbohydrate choice with your meals along with a sliding scale outlined below. We may need to adjust your doses up or down depending on your blood sugars after discharge from the hospital. Most people have different eating styles and activity levels and I would anticipate needing adjustments over the next few weeks. We have set you up with a new primary care provider as well as a clinical trial educator. I would recommend that you check your blood sugars 4 times daily (before each meal and at bedtime). Please record these numbers for review at your follow-up appointments. 2. Sliding scale insulin -. Sliding scale insulin instructions -. If blood glucose is: --100-149 = 1 units. --150 - 199 = 2 unit. --200 - 249 = 3 units. --250 - 299 = 4 units. --300 - 349 = 5 units. --350 - 400 = 6 units. -->400 = call MD for instructions - Discharge Plan *PRESCRIPTION DRUG MONITORING PROGRAM REVIEWED*: Not Applicable *COPY OF PRESCRIPTION DRUG MONITORING REPORT IN PATIENT SANDIE: Not Applicable Prescriptions/Med Rec: Insulin Lispro [Humalog] 3 unit SUBCUT TIDMEALS #5 pen Insulin Glarg,Human.Rec.Analog [Lantus Solostar] 30 units SUBCUT BEDTIME #3 pen Home Medications: Home Meds Multivitamin [Multi-Vitamin Daily] 1 each PO TID 07/30/13 [History] Insulin Glarg,Human.Rec.Analog [Lantus Solostar] 30 units SUBCUT BEDTIME #3 pen 02/23/21 [Rx] Insulin Lispro [Humalog] 3 unit SUBCUT TIDMEALS #5 pen 02/23/21 [Rx] Oxygen Therapy Mode: Room Air Patient Handouts: Insulin Treatment for Diabetes Mellitus, Type 1 Diabetes Mellitus, Diagnosis, Adult, Type 1 Diabetes Mellitus, Self-Care, Adult, Diabetes Mellitus and Nutrition, Adult Referrals: Giuliana Ballard [Registered Dietitian] - 03/02/21 1:00 pm (Please arrive 15 minutes early to register for your appointment.) Alpa Berry MD [Ordering Only Provider] - 03/02/21 1:40 pm - Discharge Summary/Plan Comment DC Time >30 min.: Yes Total # of Minutes for Discharge Time: 45 - Patient Data Vitals - Most Recent: Last Vital Signs Temp 36.6 C 02/23/21 08:00 Pulse 94 02/23/21 08:00 Resp 12 02/23/21 08:00 BP 125/67 02/23/21 08:00 Pulse Ox 99 02/23/21 08:00 Weight - Most Recent: 73.936 kg Lab Results - Last 24 hrs: Laboratory Results - last 24 hr 02/22/21 02/22/21 02/22/21 Range/Units 11:35 17:04 21:35 POC Glucose 240 H 225 H 295 H (74-106) mg/dL 02/23/21 Range/Units 08:44 POC Glucose 211 H (74-106) mg/dL Med Orders - Current: Current Medications Acetaminophen (Acetaminophen 325 Mg Tab) 650 mg PO Q4H PRN PRN Reason: Pain (Mild 1-3)/fever Dextrose/Water (50% Dextrose In Water 50 Ml Syringe) 50 ml IVPUSH ONETIME PRN PRN Reason: Blood Glucose Enoxaparin Sodium (Enoxaparin 40 Mg/0.4 Ml Syringe) 40 mg SUBCUT Q24H ADIA Last Admin: 02/22/21 17:06 Dose: 40 mg Documented by: Glucagon (Glucagon,Human Recombinant 1 Mg Vial) 1 mg IM ASDIRECTED PRN PRN Reason: Hypoglycemia Heparin Sodium (Porcine) (Heparin Sodium 100 Units/Ml 5 Ml Syringe) 500 units FLUSH ASDIRECTED PRN PRN Reason: Keep Vein Open Last Admin: 02/22/21 04:58 Dose: 500 units Documented by: Insulin Glargine (Insulin Glargine,Human Rec. Analog 100 Units/Ml 3 Ml Pen) 30 units SUBCUT BEDTIME ADIA Insulin Human Lispro (Insulin Lispro 100 Unit/Ml 3 Ml Kwikpen) 0 unit SUBCUT Q IDACANDBED ADIA; Protocol Last Admin: 02/22/21 21:37 Dose: 6 units Documented by: Insulin Human Lispro (Insulin Lispro 100 Unit/Ml 3 Ml Kwikpen) 3 unit SUBCUT TIDMEALS AIDA Ondansetron HCl (Ondansetron 4 Mg/2 Ml Sdv) 4 mg IV Q4H PRN PRN Reason: Nausea/Vomiting Senna/Docusate Sodium (Docusate Sodium/Sennosides 50-8.6 Mg Tab) 1 tab PO BID PRN PRN Reason: Constipation Sodium Chloride (Sodium Chloride 0.9% 10 Ml Syringe) 10 ml FLUSH ASDIRECTED PRN PRN Reason: Keep Vein Open Discontinued Medications Acetaminophen (Acetaminophen 500 Mg Tab) 1,000 mg PO ONETIME ONE Stop: 02/18/21 11:50 Last Admin: 02/20/21 11:36 Dose: Not Given Documented by: Heparin Sodium (Porcine) (Heparin Sodium 100 Units/Ml 5 Ml Syringe) Confirm Administered Dose 500 units .ROUTE .STK-MED ONE Stop: 02/18/21 16:14 Last Admin: 02/18/21 18:17 Dose: Not Given Documented by: Lactated Ringer's (Ringers, Lactated) 1,000 mls @ 1,000 mls/hr IV BOLUS ONE Stop: 02/18/21 09:51 Last Admin: 02/18/21 09:51 Dose: 1,000 mls/hr Documented by: Insulin Regular in 0.9 % NACL (Myxredlin In Ns 100 Unit/100 Ml) 100 unit in 100 mls @ 7.893 mls/hr IV ASDIRECTED ADIA Last Admin: 02/18/21 09:53 Dose: 0.1 units/kg/hr, 7.893 mls/hr Documented by: Sodium Chloride (Normal Saline) 1,000 mls @ 1,000 mls/hr IV .BOLUS ONE Stop: 02/18/21 12:49 Last Admin: 02/18/21 12:58 Dose: 1,000 mls/hr Documented by: Potassium Chloride 20 meq/Lidocaine HCl 2 ml/ Sodium Chloride 112 mls @ 56 mls/hr IV ONETIME ONE Stop: 02/18/21 14:44 Last Admin: 02/18/21 13:01 Dose: 56 mls/hr Documented by: Sodium Chloride (Normal Saline) 2,000 mls @ 500 mls/hr IV .CONTINUOUS PRN PRN Reason: Blood Glucose Last Admin: 02/20/21 15:19 Dose: 500 mls/hr Documented by: Potassium Chloride 20 meq/ (Premix) 100 mls @ 50 mls/hr IV ASDIRECTED PRN PRN Reason: K+ 3.5-3.9 Last Admin: 02/20/21 17:56 Dose: 50 mls/hr Documented by: Potassium Chloride 20 meq/ (Premix) 100 mls @ 50 mls/hr IV Q2H PRN PRN Reason: Hypokalemia 3 - 3.4 Last Admin: 02/19/21 08:02 Dose: 50 mls/hr Documented by: Potassium Chloride 20 meq/ (Premix) 100 mls @ 50 mls/hr IV Q2H PRN PRN Reason: Hypokalemia 2.5-2.9 Last Admin: 02/19/21 22:55 Dose: 50 mls/hr Documented by: Magnesium Sulfate (Magnesium Sulfate In Water 2 Gm/50 Ml) 50 mls @ 25 mls/hr IV ONETIME PRN PRN Reason: low magnesium Last Admin: 02/19/21 14:02 Dose: 25 mls/hr Documented by: Sodium Phosphate 60 mmole/ (Sodium Chloride) 270 mls @ 62.5 mls/hr IV ONETIME PRN PRN Reason: Low phophorus Last Admin: 02/19/21 14:36 Dose: 62.5 mls/hr Documented by: Insulin Regular in 0.9 % NACL (Myxredlin In Ns 100 Unit/100 Ml) 100 mls @ 7.893 mls/hr IV ASDIRECTED ADIA; Protocol Last Infusion: 02/20/21 20:06 Dose: 0.05 units/kg/hr, 4 mls/hr Documented by: Dextrose/Sodium Chloride (Dextrose 5%-1/2 Ns) 1,000 mls @ 150 mls/hr IV ASDIRECTED [facility] Last Admin: 02/20/21 15:29 Dose: 150 mls/hr Documented by: Potassium Phosphate 15 mmol/ (Premix) 250 mls @ 125 mls/hr IV ONETIME ONE Stop: 02/18/21 22:40 Last Admin: 02/18/21 21:07 Dose: 125 mls/hr Documented by: Premix (Premix Bag) Confirm Administered Dose 3 mls @ as directed .ROUTE .STK- MED ONE Stop: 02/18/21 20:53 Last Admin: 02/18/21 21:12 Dose: Not Given Documented by: Potassium Phosphate 15 mmol/ (Premix) 250 mls @ 125 mls/hr IV ONETIME ONE Stop: 02/19/21 00:59 Last Admin: 02/18/21 23:07 Dose: 125 mls/hr Documented by: Potassium Phosphate 15 mmol/ (Premix) 250 mls @ 125 mls/hr IV ONETIME ONE Stop: 02/19/21 02:59 Last Admin: 02/19/21 01:10 Dose: 125 mls/hr Documented by: Potassium Phosphate 15 mmol/ (Premix) 250 mls @ 125 mls/hr IV ONETIME ONE Stop: 02/19/21 04:58 Last Admin: 02/19/21 03:13 Dose: 125 mls/hr Documented by: Potassium Chloride 20 meq/ (Premix) 100 mls @ 50 mls/hr IV Q2H [facility] Stop: 02/19/21 14:29 Last Admin: 02/19/21 12:39 Dose: 50 mls/hr Documented by: Potassium Chloride 20 meq/ (Premix) 100 mls @ 50 mls/hr IV Q2H PRN PRN Reason: Hypokalemia 3 - 3.4 Last Admin: 02/20/21 00:58 Dose: 50 mls/hr Documented by: Potassium Chloride 40 meq/ (Premix) 100 mls @ 25 mls/hr IV ONETIME ONE Stop: 02/19/21 18:44 Last Admin: 02/19/21 14:41 Dose: 25 mls/hr Documented by: Insulin Glargine (Insulin Glargine,Human Rec. Analog 100 Units/Ml 3 Ml Pen) 18 units SUBCUT ONETIME ONE Stop: 02/21/21 21:28 Last Admin: 02/20/21 21:50 Dose: 18 units Documented by: Insulin Glargine (Insulin Glargine,Human Rec. Analog 100 Units/Ml 3 Ml Pen) Confirm Administered Dose 300 units .ROUTE .STK-MED ONE Stop: 02/20/21 21:46 Last Admin: 02/20/21 22:03 Dose: Not Given Documented by: Insulin Glargine (Insulin Glargine,Human Rec. Analog 100 Units/Ml 3 Ml Pen) 20 units SUBCUT BEDTIME [facility] Insulin Glargine (Insulin Glargine,Human Rec. Analog 100 Units/Ml 3 Ml Pen) 22 units SUBCUT BEDTIME [facility] Last Admin: 02/21/21 20:54 Dose: 22 units Documented by: Insulin Glargine (Insulin Glargine,Human Rec. Analog 100 Units/Ml 3 Ml Pen) 26 units SUBCUT BEDTIME [facility] Last Admin: 02/22/21 21:40 Dose: 26 units Documented by: Insulin Human Lispro (Insulin Lispro 100 Unit/Ml 3 Ml Kwikpen) 1 unit SUBCUT TIDMEALS [facility] Last Admin: 02/21/21 08:44 Dose: 3 units Documented by: Insulin Human Lispro (Insulin Lispro 100 Unit/Ml 3 Ml Kwikpen) 0 unit SUBCUT QIDACANDBED [facility]; Protocol Last Admin: 02/21/21 11:40 Dose: Not Given Documented by: Insulin Human Lispro (Insulin Lispro 100 Unit/Ml 3 Ml Kwikpen) 6 unit SUBCUT ONETIME ONE Stop: 02/21/21 11:31 Last Admin: 02/21/21 11:36 Dose: 6 units Documented by: Insulin Human Lispro (Insulin Lispro 100 Unit/Ml 3 Ml Kwikpen) 0 unit SUBCUT TIDMEALS [facility] Last Admin: 02/22/21 17:18 Dose: 6 units Documented by: Insulin Human Lispro (Insulin Lispro 100 Unit/Ml 3 Ml Kwikpen) 10 unit SUBCUT TIDMEALS [facility] Potassium Chloride (Potassium Chloride 20 Meq Tab.Er) 40 meq PO ONETIME ONE Stop: 02/18/21 11:52 Last Admin: 02/18/21 13:05 Dose: 40 meq Documented by: Potassium Chloride (Potassium Chloride 10% 20 Meq/15 Ml Soln 15 Ml Ud Cup) 20 meq PO ASDIRECTED PRN PRN Reason: Hypokalemia Last Admin: 02/20/21 17:58 Dose: 20 meq Documented by: Potassium Chloride (Potassium Chloride 10% 20 Meq/15 Ml Soln 15 Ml Ud Cup) 40 meq PO ASDIRECTED PRN PRN Reason: Hypokalemia Last Admin: 02/19/21 02:41 Dose: 40 meq Documented by: Potassium Chloride (Potassium Chloride 10% 20 Meq/15 Ml Soln 15 Ml Ud Cup) 40 meq PO Q2H PRN PRN Reason: Hypokalemia Potassium Chloride (Potassium Chloride 20 Meq Tab.Er) 40 meq PO Q2H ADIA Stop: 02/19/21 10:16 Last Admin: 02/19/21 10:08 Dose: 40 meq Documented by: Potassium Chloride (Potassium Chloride 20 Meq Tab.Er) 40 meq PO ONETIME ONE Stop: 02/19/21 17:54 Last Admin: 02/19/21 18:01 Dose: 40 meq Documented by: Potassium Chloride (Potassium Chloride 20 Meq Tab.Er) 40 meq PO ONETIME ONE Stop: 02/19/21 22:01 Last Admin: 02/19/21 22:05 Dose: 40 meq Documented by: Sodium Chloride (Sodium Chloride 0.9% 10 Ml Syringe) 10 ml FLUSH ASDIRECTED PRN PRN Reason: Keep Vein Open Last Admin: 02/18/21 09:52 Dose: 10 ml Documented by:
[2021-02-23] MEDS: Insulin Lispro 100 Unit/ML 3 ML KwikPen SUBCUT SCH ×4 (09:05→12:22)
[2021-02-23] MEDS ORDERED: Insulin Glargine,Human Rec. Analog 100 Units/ML 3 ML Pen SUBCUT SCH (21:00)
== END 2021-02-23 14:21 | disposition home or self-care (01) | DRG 638 ==
LOC: JP.ED 07:55 → JP.ICU 14:52
PROVIDERS: ADMIT Hospitalist; ATTEND Internal Medicine
PROC: 02HV33Z Insertion of Infusion Device into Superior Vena Cava, Percutaneous Approach (ICD-10-PCS; principal; 2021-02-18)
DX: E10.10 Type 1 diabetes mellitus with ketoacidosis without coma (principal); N17.9 Acute kidney failure, unspecified; E10.65 Type 1 diabetes mellitus with hyperglycemia; H54.7 Unspecified visual loss; Z90.49 Acquired absence of other specified parts of digestive tract; Z86.19 Personal history of other infectious and parasitic diseases; I25.10 Atherosclerotic heart disease of native coronary artery without angina pectoris; Z20.822 Contact with and (suspected) exposure to COVID-19
CPT/HCPCS: 36415; 71045; 71045-26; 80048; 80053; 81001; 82800; 82947; 83735; 84100; 84132; 84484; 85025; 85027; 96365; 99285-25; A9270-GY; J1642; J1650; J1815; J1815-GY; J3475; J3480; J7030; J7042; J7050; J7120; U0002

== ENCOUNTER 2021-05-05 07:57 | Day surgery (SDC) | payer MEDICAID ==
[~2021-05-05 07:57] MED LIST: Bupivacaine 0.5% 50 ML MDV ONE; Lidocaine 1% with EPINEPHrine 1:100,000 50 ML MDV ONE; Midazolam 1 MG/ML 2 ML SDV ONE; Propofol 200 MG/20 ML SDV ONE; fentaNYL 100 MCG/2 ML SDV ONE
[2021-05-05] MEDS ORDERED: Sodium Chloride 0.9% 1,000 ML IV SCH (09:00)
[2021-05-05] MEDS ORDERED: ceFAZolin 2 GM in Premix Bag 1 BAG IV ONE (09:15)
[2021-05-05] MEDS ORDERED: metroNIDAZOLE/Normal Saline 500 MG in Premix Bag 1 BAG IV ONE (09:30)
[2021-05-05] MEDS ORDERED: Propofol 200 MG/20 ML SDV ONE (10:20)
[2021-05-05] MEDS ORDERED: Succinylcholine 200 MG/10 ML MDV ONE (10:32)
[2021-05-05] MEDS ORDERED: Rocuronium 50 MG/5 ML Vial ONE (10:43)
[2021-05-05] MEDS ORDERED: Ondansetron 4 MG/2 ML SDV ONE (10:43)
[2021-05-05] MEDS ORDERED: Neostigmine Methylsulfate 1 MG/ML 5 ML Syringe ONE (10:43)
[2021-05-05] MEDS ORDERED: Glycopyrrolate 0.2 MG/ML 5 ML MDV ONE (10:43)
[2021-05-05] MEDS ORDERED: fentaNYL 250 MCG/5 ML SDV ONE (10:47)
[2021-05-05] MEDS ORDERED: Lactated Ringers 1,000 ML ONE (11:30)
[2021-05-05] MEDS ORDERED: fentaNYL 100 MCG/2 ML SDV IVPUSH ONE (13:15)
[2021-05-05] MEDS ORDERED: hydrOXYzine HCL 100 MG/2 ML SDV IM ONE (13:15)
[2021-05-05] MEDS ORDERED: Acetaminophen/HYDROcodone 325-5 MG Tab PO PRN (14:02)
[2021-05-05] MEDS ORDERED: Lidocaine 2% Jelly 10 ML Urojet MUCMEM ONE (16:41)
== END 2021-05-05 17:16 | disposition home or self-care (01) ==
LOC: JP.SDS 07:57
PROVIDERS: ATTEND Surgery
DX: K40.30 Unilateral inguinal hernia, with obstruction, without gangrene, not specified as recurrent (principal); E11.65 Type 2 diabetes mellitus with hyperglycemia; E11.10 Type 2 diabetes mellitus with ketoacidosis without coma; E78.5 Hyperlipidemia, unspecified; Z79.4 Long term (current) use of insulin; Z79.82 Long term (current) use of aspirin; Z79.899 Other long term (current) drug therapy; Z79.84 Long term (current) use of oral hypoglycemic drugs
CPT/HCPCS: 36415; 49507; 51701; 80053; 85027; A9270; C1713; C1781; J0171; J0330; J0690; J1100; J2250; J2405; J2704; J2710; J2795; J3010; J3410; J3490; J7030; J7120

== ENCOUNTER 2022-05-15 06:28 | Day surgery (SDC) | payer MEDICAID ==
[2022-05-15] MEDS ORDERED: Lactated Ringers 1,000 ML IV SCH (07:00)
[2022-05-15] MEDS ORDERED: fentaNYL 100 MCG/2 ML SDV ONE (07:22)
[2022-05-15] MEDS ORDERED: Midazolam 1 MG/ML 2 ML SDV ONE (07:22)
[2022-05-15] MEDS ORDERED: Propofol 200 MG/20 ML SDV ONE (07:22)
== END 2022-05-15 09:36 | disposition home or self-care (01) ==
LOC: JP.SDS 06:28
PROVIDERS: ATTEND Family Medicine
DX: D12.4 Benign neoplasm of descending colon (principal); E11.9 Type 2 diabetes mellitus without complications; E78.5 Hyperlipidemia, unspecified; Z98.890 Other specified postprocedural states; Z79.899 Other long term (current) drug therapy
CPT/HCPCS: 88305; J2250; J2704; J3010; J7120